=== PATIENT | female | born 1945 | race Hispanic/Latino ===

== ENCOUNTER 2016-07-22 11:26 | Inpatient (IN) | payer MEDICARE, OTHER ==
[2016-07-22 11:42] VITALS: BMI 25.0
[2016-07-22] MEDS ORDERED: Sodium Chloride 0.9% 1,000 ML IV STA (12:06)
[2016-07-22 12:34] LABS: ADD MANUAL DIFF? NO
[2016-07-22 12:46] LABS: BASO # 0.03 K/mm3 (0.0-2.0); BASO % 0.4 % (0.0-3.0); EOS # 0.1 (0.0-0.7); GRAN # 4.23 (1.4-6.5); GRAN % 63.5 % (50.0-68.0); LYMPH # 1.9 (1.2-3.4); LYMPH % 28.8 % (22.0-35.0); MEAN CELL VOLUME 87.1 fL (80.0-105.0); MEAN CORPUSCULAR HEMOGLOBIN 28.6 pg (25.0-35.0); MEAN CORPUSCULAR HGB CONC 32.9 g/dl (31.0-37.0); MEAN PLATELET VOLUME 10.4 fl (7.0-11.0); MONO # 0.4 (0.1-0.6); MONO % 6.3 % (1.0-6.0); PLATELET COUNT 326 10^3/uL (120.0-450.0); RED CELL DISTRIBUTION WIDTH 15.1 % (11.5-14.5); WHITE BLOOD COUNT 6.7 10^3/ul (4.5-11.0)
[2016-07-22 12:53] LABS: INR 1.1 (0.93-1.08); PARTIAL THROMBOPLASTIN TIME 28.7 Seconds (23.7-30.8)
[2016-07-22 12:54] LABS: BLOOD UREA NITROGEN 25 mg/dL (7-21); GFR AFRICAN-AMERICAN 45; GLUCOSE,RANDOM 157 mg/dL (70-110)
[2016-07-22 12:55] LABS: ALB/GLOB RATIO 1.2 (1.1-1.8); ALKALINE PHOSPHATASE 81 U/L (38-133); ALT/SGPT 14 U/L (7-56); AST/SGOT 21 U/L (15-39); BILIRUBIN,TOTAL 0.8 mg/dL (0.2-1.3); CALCIUM 9.8 mg/dL (8.4-10.5); CARBON DIOXIDE 24 mmol/L (21-33); CHLORIDE 100 mmol/L (98-107); LIPASE 53 U/L (23-300); SODIUM 141 mmol/L (132-148); TOTAL PROTEIN 7.8 g/dL (5.8-8.3)
[2016-07-22 13:05] LABS: TROPONIN I 0.02 ng/mL
--- NOTE | 2016-07-22 13:26 | CT ---
PROCEDURE: CT Abdomen and Pelvis without intravenous contrast HISTORY: nv COMPARISON: None. TECHNIQUE: Without contrast.. Contrast Dose: 0 Radiation dose: Total exam DLP = 280.08 mGy-cm. FINDINGS: LOWER THORAX: Unremarkable. LIVER: Unremarkable. No gross lesion or ductal dilatation. GALLBLADDER AND BILE DUCTS: Status post cholecystectomy. Minimal dilatation of the common bile duct to 8 mm diameter consistent with patient age and prior cholecystectomy. PANCREAS: Atrophy of pancreatic body and tail. Coarse calcifications in proximal pancreatic body suggestive of chronic pancreatitis. SPLEEN: Unremarkable. ADRENALS: Unremarkable. No mass. KIDNEYS AND URETERS: Multiple punctate nonobstructing renal calculi bilaterally. None larger than 2 mm. No renal mass. No hydronephrosis. No ureteral calculus or hydroureter. VASCULATURE: Unremarkable. No aortic aneurysm. BOWEL: Mild retained feces. No bowel obstruction. No abnormal bowel loops. APPENDIX: Normal appendix PERITONEUM: Unremarkable. No free fluid. No free air. LYMPH NODES: Unremarkable. No enlarged lymph nodes. BLADDER: Poorly distended. No gross abnormality. REPRODUCTIVE: Normal uterus. BONES: Bilateral osteoarthritis of the hip. No fractures. OTHER FINDINGS: None. IMPRESSION: No acute abnormality. Bilateral punctate nonobstructing renal calculi. Status post cholecystectomy. Probable chronic pancreatitis with atrophy of pancreatic body and tail.
--- NOTE | 2016-07-22 13:30 | RAD ---
PROCEDURE: CHEST RADIOGRAPH, 1 VIEW HISTORY: cough COMPARISON: 11/19/2015. FINDINGS: LUNGS: Clear. PLEURA: No pneumothorax or pleural fluid seen. CARDIOVASCULAR: Normal. OSSEOUS STRUCTURES: Severe degenerative changes both shoulders right greater than left. This includes acromioclavicular joints and glenohumeral relationships. VISUALIZED UPPER ABDOMEN: Normal. OTHER FINDINGS: None. IMPRESSION: No active disease. No acute/significant interval changes.
--- NOTE | 2016-07-22 14:18 | ED PDOC ---
Arrival/HPI - General Chief Complaint: GI Problem Time Seen by Provider: 07/22/16 11:50 Historian: Patient - History of Present Illness Narrative History of Present Illness (Text): 07/22/16 14:29 70 year old female presents to the emergency department with 2 days duration of nausea, mild headache, and generalized weakness. Patient states she feels like she has no appetite and feels dehydrated. Denies vomiting. No other complaints at this time. Time/Duration: < week Symptom Onset: Gradual Symptom Course: Unchanged Modifying Factors (Text): None Associated Symptoms (Text): None Past Medical History - Provider Review Nursing Documentation Reviewed: Yes - Cardiac Hx Cardiac Disorders: Yes Hx Hypertension: Yes - Pulmonary Hx Respiratory Disorders: No - Neurological Hx Neurological Disorder: Yes HX Cerebrovascular Accident: Yes (left sided paralysis) - HEENT Hx HEENT Disorder: No - Renal Hx Renal Disorder: No - Endocrine/Metabolic Hx Endocrine Disorders: Yes Hx Diabetes Mellitus Type 2: Yes - Hematological/Oncological Hx Blood Disorders: No - Integumentary Hx Dermatological Disorder: No - Musculoskeletal/Rheumatological Hx Musculoskeletal Disorders: No - Gastrointestinal Hx Gastrointestinal Disorders: No - Genitourinary/Gynecological Hx Genitourinary Disorders: No - Psychiatric Hx Psychophysiologic Disorder: No Hx Anxiety: No Hx Substance Use: No - Surgical History Hx Cholecystectomy: Yes Other/Comment: carotid Family/Social History - Physician Review Nursing Documentation Reviewed: Yes Family/Social History: Unknown Family HX Smoking Status: Former Smoker Hx Alcohol Use: No Hx Substance Use: No Allergies/Home Meds Allergies/Adverse Reactions: Allergies No Known Allergies Allergy (Verified 07/22/16 11:41) Home Medications: Home Meds Medication Instructions Recorded Confirmed Metformin HCl [Metformin Xr] 1,000 mg PO BID 11/19/15 07/22/16 Aspirin [Aspirin Chewable] 81 mg PO DAILY 07/22/16 07/22/16 Atorvastatin [Lipitor] 40 mg PO DAILY 07/22/16 07/22/16 FLUoxetine [Prozac] 20 mg PO DAILY 07/22/16 07/22/16 Insulin Glargine, Recombina 10 units SC HS 07/22/16 07/22/16 [Lantus] Iron Pill 1 tab PO DAILY 07/22/16 07/22/16 Lisinopril [Zestril] 20 mg PO DAILY 07/22/16 07/22/16 Metoprolol Tartrate [Lopressor] 25 mg PO HS 07/22/16 07/22/16 traMADol [Ultram] 50 mg PO BID PRN 07/22/16 07/22/16 Review of Systems - Physician Review All systems were reviewed & negative as marked: Yes Physical Exam - Physical Exam Narrative Physical Exam (Text): - Review of Systems Constitutional: Generalized weakness. absent: Fatigue, Weight Change, Fevers Eyes: Normal ENT: Normal Respiratory: Normal absent: SOB, Cough, Sputum Cardiovascular: Normal absent: Chest pain, Palpitations, Syncope Gastrointestinal: Nausea, Decreased appetite. absent: Abdominal pain, Diarrhea , Vomiting Genitourinary: Normal. absent: Dysuria, Frequency, Hematuria Musculoskeletal: Normal. absent: Arthralgias, Back Pain, Neck Pain Skin: Normal Neurological: Mild headache absent: Focal Weakness Endocrine: Normal Hemo/Lymphatic: Normal Psychiatric: Normal - Physical exam Patient appears age appropriate, speaking full sentences without difficulty - Systems Exam Head: Present: Atraumatic, Normocephalic Pupils: Present: PERRL Extraocular Muscles: Present: EOMI Conjunctiva: Present: Normal Mouth: Present: Moist Mucous Membranes Neck: Present: Normal Range of Motion. No: MIDLINE TENDERNESS, Paraspinal Tenderness Respiratory/Chest: Present: Clear to Auscultation, Good Air Exchange. No: Respiratory Distress, Accessory Muscle Use, Tachypneic Cardiovascular: Present: Regular Rate and Rhythm, Normal S1, S2, Peripheral Pulses Present. No: Murmurs Abdomen: Present: Normal Bowel Sounds, No: Tenderness, Peritoneal Signs, Rebound, Guarding, Distention Back: Present: Normal Inspection. No: Midline Tenderness, Paraspinal Tenderness Upper Extremity: Present: Normal Inspection. No: Cyanosis, Edema Lower Extremity: Present: Normal Inspection. No: Edema Neurological: Present: GCS=15, Speech Normal, cranial nerves II through XII fully intact with no cerebellar abnormality, neuro-sensory fully intact. No focal neurological deficits. Skin: Present: Warm, Dry, Normal Color. No: Rashes Lymphatic: Present: OX3, NI, NC Psychiatric: Present: Alert, Oriented x 3, Normal Insight, Normal Concentration Vital Signs Temp Pulse Resp BP Pulse Ox 07/22/16 15:01 86 16 148/90 99 07/22/16 11:45 98.3 F 78 16 155/86 H 99 Medical Decision Making ED Course and Treatment: Impression: 70 year old female presents to the emergency department with 2 days duration of nausea, mild headache, and generalized weakness. On physical exam, patient has no acute findings. Plan: -- CT Abdomen/Pelvis, EKG -- Aspirin, Zofran, IV fluids -- Labs -- Reassess and disposition Prior Visits: Notes and results from previous visits were reviewed. Patient last seen in the ED on 11/19/15 for stroke symptoms and transferred to [facility] [place] for CVA and abnormal EKG. Progress Notes: Patient states she has never seen a shot core drill operator. EKG shows NSR at [address]-segment elevations, right bundle branch block , ST-segment depressions in V2 and V3 which are different from previous EKG. There is an ST elevation with q-waves in leads III and AVF which are not new. Interpreted by me. Patient denies any chest pain, denies back pain, denies joint discomfort. PROCEDURE: CT Abdomen and Pelvis without intravenous contrast [employer] Sales Representative : Shane Meza MD IMPRESSION: No acute abnormality. Bilateral punctate nonobstructing renal calculi. Status post cholecystectomy. Probable chronic pancreatitis with atrophy of pancreatic body and tail. Patient received fluids, Zofran, and Aspirin. Patient reports symptomatic relief. Case discussed with Dr. Adams who [facility] Asked to consult Dr. Nagel. Patient aware of and agrees with plan. - Lab Interpretations Lab Results: 07/22/16 12:30 07/22/16 12:30 Lab Results 07/22/16 12:30: WBC 6.7 D, RBC 4.82, Hgb 13.8, Hct 42.0, MCV 87.1, MCH 28.6, MCHC 32.9, RDW 15.1 H, Plt Count 326, MPV 10.4, Gran % 63.5, Lymph % (Auto) 28.8 , Den[place] % (Auto) 6.3 H, Eos % (Auto) 1.0 L, Baso % (Auto) 0.4, Gran # 4.23, Lymph # 1.9, Denali # 0.4, Eos # 0.1, Baso # 0.03, PT 11.9 H, INR 1.10 H, APTT 28.7, Sodium 141, Potassium 4.0, Chloride 100, Carbon Dioxide 24, Anion Gap 21 H , BUN 25 H, Creatinine 1.4, Est GFR ( Amer) 45, Est GFR (Non-Af Amer) 37 , Random Glucose 157 H, Calcium 9.8, Total Bilirubin 0.8, AST 21, ALT 14, Alkaline Phosphatase 81, Lactate Dehydrogenase 412, Total Creatine Kinase < 20 L , Troponin I 0.02 D, Total Protein 7.8, Albumin 4.3, Globulin 3.5, Albumin/ Globulin Ratio 1.2, Triglycerides 236 H, Cholesterol 182, LDL Cholesterol Direct 73, HDL Cholesterol 59, Lipase 53 - RAD Interpretation Radiology Orders: 07/22/16 12:21 ABD & PELVIS W/O PO OR IV CONT [CT] Stat CHEST ONE VIEW [RAD] Stat - Medication Orders Current Medication Orders: Aspirin (Aspirin Chewable) 81 mg PO DAILY CLAUDY Atorvastatin Calcium (Lipitor) 40 mg PO DAILY CLAUDY Fluoxetine HCl (Prozac) 20 mg PO DAILY CLAUDY Sodium Chloride (Sodium Chloride 0.45%) 1,000 mls @ 50 mls/hr IV .Q20H CLAUDY Insulin Human Lispro (Humalog Med) 0 units SC ACHS CLAUDY PRN Reason: Protocol Lisinopril (Zestril) 20 mg PO DAILY CLAUDY Metoprolol Tartrate (Lopressor) 25 mg PO HS CLAUDY Ondansetron HCl (Zofran Inj) 4 mg IVP Q6H PRN PRN Reason: Nausea/Vomiting Pantoprazole Sodium (Protonix Inj) 40 mg IVP DAILY CLAUDY Tramadol HCl (Ultram) 50 mg PO BID PRN PRN Reason: Pain, moderate (4-7) Discontinued Medications Aspirin (Aspirin Chewable) 324 mg PO STAT STA Stop: 07/22/16 12:06 Last Admin: 07/22/16 12:38 Dose: 324 MG Sodium Chloride (Sodium Chloride 0.9%) 1,000 mls @ 1,000 mls/hr IV .Q1H STA Stop: 07/22/16 13:05 Last Admin: 07/22/16 12:07 Dose: 1,000 MLS/HR eMAR Start Stop Document 07/22/16 12:07 NORRIS (Rec: 07/22/16 12:39 FELICIA [id number]) Intravenous Solution Start Date 07/22/16 Start Time 12:07 Ondansetron HCl (Zofran Inj) 4 mg IVP STAT STA Stop: 07/22/16 12:07 Last Admin: 07/22/16 12:39 Dose: 4 MG IVP Administration Document 07/22/16 12:39 NORRIS (Rec: 07/22/16 12:39 [facility] [id number]) Charges for Administration # of IVP Administrations 1 - Scribe Statement The provider has reviewed the documentation as recorded by the Apoorva Padilla Provider Scribe Attestation: All medical record entries made by the Chiquiibe were at my direction and personally dictated by me. I have reviewed the chart and agree that the record accurately reflects my personal performance of the history, physical exam, medical decision making, and the department course for this patient. I have also personally directed, reviewed, and agree with the discharge instructions and disposition. Disposition/Present on Arrival - Present on Arrival Any Indicators Present on Arrival: No History of DVT/PE: No History of Uncontrolled Diabetes: No Urinary Catheter: No History of Decub. Ulcer: No History Surgical Site Infection Following: None - Disposition Have Diagnosis and Disposition been Completed?: Yes Diagnosis: Nausea Disposition: HOSPITALIZED Disposition Time: 14:16 Patient Plan: Observation Condition: FAIR
--- NOTE | 2016-07-22 14:21 | ED PDOC ---
Arrival/HPI - General Chief Complaint: GI Problem Time Seen by Provider: 07/22/16 11:50 Historian: Patient Past Medical History - Cardiac Hx Cardiac Disorders: Yes Hx Hypertension: Yes - Pulmonary Hx Respiratory Disorders: No - Neurological Hx Neurological Disorder: Yes HX Cerebrovascular Accident: Yes (left sided paralysis) - HEENT Hx HEENT Disorder: No - Renal Hx Renal Disorder: No - Endocrine/Metabolic Hx Endocrine Disorders: Yes Hx Diabetes Mellitus Type 2: Yes - Hematological/Oncological Hx Blood Disorders: No - Integumentary Hx Dermatological Disorder: No - Musculoskeletal/Rheumatological Hx Musculoskeletal Disorders: No - Gastrointestinal Hx Gastrointestinal Disorders: No - Genitourinary/Gynecological Hx Genitourinary Disorders: No - Psychiatric Hx Psychophysiologic Disorder: No Hx Anxiety: No Hx Substance Use: No - Surgical History Hx Cholecystectomy: Yes Other/Comment: carotid Family/Social History Smoking Status: Former Smoker Hx Alcohol Use: No Hx Substance Use: No Allergies/Home Meds Allergies/Adverse Reactions: Allergies No Known Allergies Allergy (Verified 07/22/16 11:41) Home Medications: Home Meds Medication Instructions Recorded Confirmed Metformin HCl [Metformin Xr] 1,000 mg PO BID 11/19/15 07/22/16 Aspirin [Aspirin Chewable] 81 mg PO DAILY 07/22/16 07/22/16 Atorvastatin [Lipitor] 40 mg PO DAILY 07/22/16 07/22/16 FLUoxetine [Prozac] 20 mg PO DAILY 07/22/16 07/22/16 Insulin Glargine, Recombina 10 units SC HS 07/22/16 07/22/16 [Lantus] Iron Pill 1 tab PO DAILY 07/22/16 07/22/16 Lisinopril [Zestril] 20 mg PO DAILY 07/22/16 07/22/16 Metoprolol Tartrate [Lopressor] 25 mg PO HS 07/22/16 07/22/16 traMADol [Ultram] 50 mg PO BID PRN 07/22/16 07/22/16 Medical Decision Making - Lab Interpretations Lab Results: 07/22/16 12:30 07/22/16 12:30 Lab Results 07/22/16 12:30: WBC 6.7 D, RBC 4.82, Hgb 13.8, Hct 42.0, MCV 87.1, MCH 28.6, MCHC 32.9, RDW 15.1 H, Plt Count 326, MPV 10.4, Gran % 63.5, Lymph % (Auto) 28.8 , Haakon % (Auto) 6.3 H, Eos % (Auto) 1.0 L, Baso % (Auto) 0.4, Gran # 4.23, Lymph # 1.9, Haakon # 0.4, Eos # 0.1, Baso # 0.03, PT 11.9 H, INR 1.10 H, APTT 28.7, Sodium 141, Potassium 4.0, Chloride 100, Carbon Dioxide 24, Anion Gap 21 H , BUN 25 H, Creatinine 1.4, Est GFR ( Amer) 45, Est GFR (Non-Af Amer) 37 , Random Glucose 157 H, Calcium 9.8, Total Bilirubin 0.8, AST 21, ALT 14, Alkaline Phosphatase 81, Lactate Dehydrogenase 412, Total Creatine Kinase < 20 L , Troponin I 0.02 D, Total Protein 7.8, Albumin 4.3, Globulin 3.5, Albumin/ Globulin Ratio 1.2, Lipase 53 - RAD Interpretation Radiology Orders: 07/22/16 12:21 ABD & PELVIS W/O PO OR IV CONT [CT] Stat CHEST ONE VIEW [RAD] Stat - Medication Orders Current Medication Orders: Discontinued Medications Aspirin (Aspirin Chewable) 324 mg PO STAT STA Stop: 07/22/16 12:06 Last Admin: 07/22/16 12:38 Dose: 324 MG Sodium Chloride (Sodium Chloride 0.9%) 1,000 mls @ 1,000 mls/hr IV .Q1H STA Stop: 07/22/16 13:05 Last Admin: 07/22/16 12:07 Dose: 1,000 MLS/HR eMAR Start Stop Document 07/22/16 12:07 [facility] (Rec: 07/22/16 12:39 [id number]) Intravenous Solution Start Date 07/22/16 Start Time 12:07 Ondansetron HCl (Zofran Inj) 4 mg IVP STAT STA Stop: 07/22/16 12:07 Last Admin: 07/22/16 12:39 Dose: 4 MG IVP Administration Document 07/22/16 12:39 [facility] (Rec: 07/22/16 12:39 [id number]) Charges for Administration # of IVP Administrations 1 Disposition/Present on Arrival - Present on Arrival History of DVT/PE: No History of Uncontrolled Diabetes: No Urinary Catheter: No History of Decub. Ulcer: No History Surgical Site Infection Following: None
[2016-07-22 16:44] LABS: CHOLESTEROL 182 mg/dL (130-200)
--- NOTE | 2016-07-22 18:24 | CARD ---
APPROVED REPORT EKG Measurement Heart [id number] <Conclusion> Normal sinus rhythm Right bundle branch block Lateral infarct, age undetermined Inferior infarct, age undetermined Abnormal ECG
[2016-07-22] MEDS: Insulin Lispro (humaLOG) MEDIUM Coverage SC SCH ×2 (18:43→22:37)
[2016-07-22] MEDS ORDERED: Influenza Vaccine 45 MCG/0.5 ml IM ONE (19:41)
[2016-07-22] MEDS ORDERED: Pneumococcal 23-Valent Vaccine IM ONE (19:41)
--- NOTE | 2016-07-22 20:29 | HP ---
HISTORY OF PRESENT ILLNESS: The patient is a 70-year-old female, known to me from office practice an d has not been feeling well for the last 2-3 days, complaining of poor appetite, generalized weakness , nausea, headache and generalized weakness. The patient had a CVA in 10/2015. PAST MEDICAL HISTORY: Is significant for: 1. Hypertension. 2. Non-insulin dependent diabetes. 3. Recent cerebrovascular accident with left hemiparesis. 4. Hyperlipidemia. 5. History of depression. ALLERGIES: She is not allergic to any medications. MEDICATIONS AT HOME: She is on: 1. Ferrous sulfate. 2. Prozac 20 mg daily. 3. Tramadol 50 mg twice a day as needed. 4. Lantus 10 units at bedtime. 5. Metoprolol 25 at bedtime. 6. Lipitor 40 mg daily. 7. Lisinopril 20 mg daily. 8. Aspirin 81 daily. 9. Metformin 1000 twice a day. SOCIAL HISTORY: She used to be a heavy smoker in the past drug use. REVIEW OF SYSTEMS: Is significant for left-sided weakness, but able to swallow. PHYSICAL EXAMINATION: GENERAL: She is awake and alert. VITAL SIGNS: She is afebrile, pulse 70, respirations 16, blood pressure 148/90. LUNGS: Bilateral good airflow, no rhonchi or crackle. HEART: S1, S2 audible. No murmur. ABDOMEN: Soft, nontender, no rebound, no guarding. NEUROLOGIC: She is awake and alert, some left-sided weakness. EXTREMITIES: Bilateral leg no edema. LABORATORY DATA: WBC is 6.7, hemoglobin 13.8, hematocrit 42.0, platelets 326. Chemistry: Sodium 14 1, potassium 4.0, chloride 100, CO2 of 21, BUN 25, creatinine 1.4, blood sugar 157. Cholesterol: Tr iglyceride is 236. Troponin is 0.02. Urinalysis is unremarkable. X-ray chest: No active disease. CT scan of the abdomen and pelvis is done that has no acute abnormality, bilateral punctate nonobstr ucting renal calculi, status post cholecystectomy. ASSESSMENT: 1. Generalized weakness with nausea and vomiting. 2. Dehydration. 3. Cerebrovascular accident with left hemiparesis. 4. Hypertension. 5. Hyperlipidemia. 6. Non-insulin dependent diabetes. PLAN: The patient will be placed in observation. Will start her on gentle hydration. Will restart her usual medications including aspirin, atorvastatin and metoprolol. Will give her Protonix. Will follow up cardiac enzymes. The patient has some nonspecific T-wave changes. Dr. Shane Nagel to evalu ate the patient. Will follow up her CBC and electrolytes in the a.m. Maritza Adams MD cc: [phone] TT: 07/22/2016 20:28:30 dn
[2016-07-23] MEDS ORDERED: Pantoprazole 40 mg EC Tab PO SCH (06:30)
[2016-07-23 06:34] LABS: ADD MANUAL DIFF? NO
[2016-07-23 06:47] LABS: BASO # 0.02 K/mm3 (0.0-2.0); BASO % 0.3 % (0.0-3.0); EOS # 0.1 (0.0-0.7); EOS % 1.4 % (1.5-5.0); GRAN # 3.63 (1.4-6.5); GRAN % 55.3 % (50.0-68.0); HEMATOCRIT 37.3 % (36.0-48.0); LYMPH # 2.3 (1.2-3.4); LYMPH % 34.8 % (22.0-35.0); MEAN CELL VOLUME 86.5 fL (80.0-105.0); MEAN CORPUSCULAR HEMOGLOBIN 28.5 pg (25.0-35.0); MEAN PLATELET VOLUME 10.1 fl (7.0-11.0); MONO # 0.5 (0.1-0.6); MONO % 8.2 % (1.0-6.0); PLATELET COUNT 272 10^3/uL (120.0-450.0); RED CELL DISTRIBUTION WIDTH 15.2 % (11.5-14.5); WHITE BLOOD COUNT 6.6 10^3/ul (4.5-11.0)
[2016-07-23 06:53] LABS: ALB/GLOB RATIO 1.2 (1.1-1.8); BILIRUBIN,TOTAL 0.6 mg/dL (0.2-1.3); CALCIUM 8.9 mg/dL (8.4-10.5); MAGNESIUM 1.1 mg/dL (1.7-2.2); PHOSPHOROUS 3.5 mg/dL (2.5-4.5); POTASSIUM 3.9 mmol/L (3.6-5.0); TOTAL PROTEIN 6.8 g/dL (5.8-8.3)
[2016-07-23 07:08] LABS: FREE T4 1.5 ng/dL (0.78-2.19)
[2016-07-23 07:22] LABS: THYROID STIMULATING HORMONE 0.68 mIU/mL (0.46-4.68)
[2016-07-23] MEDS: Insulin Lispro (humaLOG) MEDIUM Coverage SC SCH ×4 (08:02→22:02)
--- NOTE | 2016-07-23 10:54 | CON ---
DATE: 07/23/2016 HISTORY OF PRESENT ILLNESS: The patient is a 70-year-old woman who presents with 1 week of general m alaise with difficulty with diffuse weakness. She denies chest pain. PAST MEDICAL HISTORY: Notable for a recent CVA treated in [facility]. She had 2 episodes of chest oswaldo n symptoms, which was treated medically. Includes a history of hypertension, hypercholesterolemia, a nd diabetes mellitus. She had an EKG in the past, which shows an old inferior wall myocardial infarction. SOCIAL HISTORY: She denies smoking. REVIEW OF SYSTEMS: A 14-point was reviewed. No angina, plus/minus shortness of breath. Positive di ffuse weakness. Negative edema in the lower extremities. PHYSICAL EXAMINATION: VITAL SIGNS: Blood pressure is 131/79, the heart rate is in the 70s, sinus rhythm. The patient is a febrile. NECK: Negative JVD. LUNGS: Without rales. HEART: Reveals S1, S2. EXTREMITIES: Without edema. The hemoglobin is 12.3. INR is 1.1. Chemistries: BUN and creatinine are 30 and 1.6. Troponins are negative x 2. IMPRESSION: 1. Malaise and weakness. 2. History of cerebrovascular accident. 3. Two episodes of angina-like symptoms while in the subacute rehabilitation. 4. 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 5. Coronary artery disease. 6. History of diabetes mellitus. 7. Hypertension and hypercholesterolemia. PLAN: We will obtain an echocardiogram to evaluate her left ventricular function. Depending on her left ventricular function, we may need to proceed with a cardiac catheterization. A stress test woul d not be helpful at this time given her high pretest probability for CAD. We will start IV fluids. Shane Nagel MD cc: [phone] TT: 07/23/2016 10:53:29 Confirmation # [id number] Dictation # [id number]
--- NOTE | 2016-07-23 14:04 | CARD ---
APPROVED REPORT EKG Measurement Heart [id number] [id number] <Conclusion> Normal sinus rhythm Right bundle branch block Inferior infarct, age undetermined Abnormal ECG
--- NOTE | 2016-07-23 17:06 | CARD ---
APPROVED REPORT EXAM: Two-dimensional and M-mode echocardiogram with Doppler and color Doppler. INDICATION OLD [place] 2D DIMENSIONS IVSd1.1 (0.7-1.1cm)LVDd4.0 (3.9-5.9cm) PWd1.2 (0.7-1.1cm)LVEF (%)45.0 (>50%) M-Mode DIMENSIONS Aortic Root2.90 (2.2-3.7cm)Aortic Cusp Exc.1.40 (1.5-2.0cm) Aortic Valve AoV Peak Gmbbmblw613.0cm/sAoV VTI24.7cmAO Peak GR.8mmHg LVOT Peak Bitvkhog54.0cm/sLVOT VTI16.20cmAO Mean GR.4mmHg Mitral Valve MV E Cndjoqej23.1cm/sMV A Abpsjwhz938.0cm/sE/A ratio0.5 TDI Lateral E' Peak V5.85cm/sMedial E' Peak V3.31cm/sE/Lateral E'9.1 E/Medial E'16.0 Pulmonary Valve PV Peak Wagrtdqw733.0cm/sPV Peak Grad.5mmHg Tricuspid Valve TR Peak Nwigezba889hh/sRAP RVUURNGY39ioFjLW Peak Gr.12mmHg MNRR21tjNw LEFT VENTRICLE The left ventricle is normal size. There is normal left ventricular wall thickness. The systolic function is mildly impaired. Transmitral Doppler flow pattern is Grade I-abnormal relaxation pattern. RIGHT VENTRICLE The right ventricle is normal size. There is normal right ventricular wall thickness. The right ventricular systolic function is normal. ATRIA The left atrium size is normal. The right atrium size is normal. AORTIC VALVE The aortic valve is not well visualized. There is trace valvular aortic stenosis. MITRAL VALVE There is no mitral valve regurgitation noted. TRICUSPID VALVE There is no pulmonary hypertension. GREAT VESSELS The aortic root is normal in size. PERICARDIAL EFFUSION There is a trace circumferential pericardial effusion. <Conclusion> The left ventricle is normal size. There is normal left ventricular wall thickness. The systolic function is mildly impaired. Transmitral Doppler flow pattern is Grade I-abnormal relaxation pattern.
[2016-07-23] MEDS: Sodium Chloride 0.45% 1,000 ML IV SCH (18:20)
--- NOTE | 2016-07-23 21:33 | PN ---
DATE: 07/23/2016 The patient is a 70 years old, seen and examined, and detailed history obtained from sister since the patient is not a good historian. She recently a stroke in 10/2015. At that point she was given TPA , was sent to [facility], followed by rehab in [facility], The patient's sister stated she was d oing well when she came home. She started to gain some strength, but slowly. She has not been eatin g well. She stopped taking her omeprazole. Since then she lost her appetite, has not been eating an d drinking, and getting more and more weak, and because of increased lethargy and poor oral intake, ami baltazar brought her to Emergency Room for further evaluation. On examination today, she is awake and alert, communicative. VITAL SIGNS: She is afebrile, pulse 70, respirations 20, blood pressure 133/83. LUNGS: Bilateral fair airflow. No rhonchi or crackle. HEART: S1, S2 audible. No murmur. ABDOMEN: Soft, nontender, no rebound, no guarding. NEUROLOGICALLY: She is awake and alert. She has left hemiparesis bilateral legs. No edema. LABORATORY EXAMINATION: WBC 6.6, hemoglobin 12.3, hematocrit 37.3, platelet 272. PT 11.9, INR 1.10. Chemistry: Sodium 139, potassium 3.9, chloride 102, CO2 of 26, BUN 30, creatinine 1.6. Blood suga r of 86, magnesium 1.1, triglycerides 185. ASSESSMENT AND PLAN: 1. Poor oral intake. 2. Status post cerebrovascular accident with left hemiparesis. 3. Coronary artery disease with abnormal EKG. LABORATORY EXAMINATION: Shows sodium 139, potassium 3.9, chloride 102, CO2 of 26, BUN 30, creatinine 1.6. Blood sugar of 88, magnesium 1.1. She had an echocardiogram done that shows the left ventricle is normal in size, normal left ventricul ar wall thickness, and systolic function is mildly impaired. ASSESSMENT AND PLAN: 1. Poor oral intake. 2. Failure to thrive. 3. Status post cerebrovascular accident. 4. Depression. 5. Rule out peptic ulcer disease. 6. Abnormal EKG, rule out underlying coronary ischemia. PLAN: Will continue patient on IV fluid, and PPI has been started. She is on aspirin 81 daily. Mon itor her blood sugar. She is on Lipitor and metoprolol; will continue that. Will supplement her mag nesium. The patient's sister says that Prozac makes her sick, so I will switched to Paxil; that migh t help her to improve her appetite. Continue her on Plavix. Will reevaluate this patient in a.m. Maritza Adams MD cc: [phone] TT: 07/23/2016 21:32:47 Confirmation # [id number] Dictation # [id number] jn
[2016-07-24] MEDS: Insulin Lispro (humaLOG) MEDIUM Coverage SC SCH ×4 (07:56→22:24)
[2016-07-24 10:42] LABS: ALB/GLOB RATIO 1.1 (1.1-1.8); BILIRUBIN,TOTAL 0.5 mg/dL (0.2-1.3); CALCIUM 7.3 mg/dL (8.4-10.5); POTASSIUM 3.2 mmol/L (3.6-5.0); TOTAL PROTEIN 5.5 g/dL (5.8-8.3)
[2016-07-24] MEDS: Potassium Chloride 10 mEq 100 ML IVPB SCH ×2 (12:07→15:44)
--- NOTE | 2016-07-24 12:10 | PN ---
DATE: 07/24/2016 SUBJECTIVE: The patient is 70 years old, seen and examined, lying in bed. She states she is feeling better. According to her age, she did eat her breakfast pretty good, at least 75% of her tray. Den ies any chest pain. No shortness of breath. Complained of generalized weakness. PHYSICAL EXAMINATION: VITAL SIGNS: She is afebrile, pulse 69, respirations 20, blood pressure 130/93. LUNGS: Bilateral fair airflow. No rhonchi or crackle. HEART: S1, S2 audible. No murmur. ABDOMEN: Soft, nontender. No rebound, no guarding. NEUROLOGIC: She is awake and alert. she has left hemiparesis from previous stroke. EXTREMITIES: Bilateral legs, no edema. LABORATORY: WBC 6.6, hemoglobin 12.3, hematocrit 37.3, platelets of 272. Chemistry: Sodium 126, po tassium 3.2, chloride 97, CO2 of 21, BUN 21, creatinine 1.1, blood sugar of 151. ASSESSMENT: 1. Generalized weakness. 2. History of recent cerebrovascular accident. 3. Renal insufficiency, improving. 4. Deconditioning and difficulty walking. PLAN: We will supplement her potassium and request for TCU evaluation. If she is accepted, can be t ransferred to TCU. We will continue her other medications including statin, metoprolol, Plavix, and Protonix. I will change it to p.o. since she started to eat and tolerate. We will reevaluate the pa ynes in a.m. Maritza Adams MD cc: [id number] TT: 07/24/2016 12:09:16 Confirmation # [id number] Dictation # [id number] radha
--- NOTE | 2016-07-24 12:58 | PN ---
DATE: 07/24/2016 Room 260, bed 2. This progress note is being dictated on behalf of Dr. Nagel, for whom I am covering. HISTORY OF PRESENT ILLNESS: The patient is a 70-year-old, admitted with 1-week of generalized malais e and difficulty with walking, feeling very weak. Denies any chest pain, shortness of breath. The p atient known to have a recent cerebrovascular accident. The patient also has history of hypertension , hypercholesterolemia, and diabetes mellitus. The patient lying flat in bed without any cardiac sym ptoms. PHYSICAL EXAMINATION: VITAL SIGNS: Blood pressure 130/93, respirations 20, pulse 73, temperature 98.2. HEAD: Normocephalic. EYES: Pupils normal. Conjunctivae normal. NOSE AND THROAT: Normal. NECK: JVP low. Carotid equal. THORAX: AP diameter normal. LUNGS: Clear. CARDIOVASCULAR: S1, S2. ABDOMEN: Soft, nontender, no organomegaly. EXTREMITIES: No clubbing, no cyanosis. LABORATORY DATA: WBC 6.6, hemoglobin 12.3, hematocrit 37.3, platelets 272. Sodium 126, potassium 3. 2, BUN 21, creatinine 1.1. AST, ALT normal. Total protein 5.5, albumin 2.9. The TSH is 0.68, free T4 1.50 DIAGNOSES: Malaise and weakness, history of CVA. The patient, in rehabilitation, had 2 episodes of chest pain, old inferior wall AL on ECG, diabetes mellitus, hypertension, hypercholesterolemia, low s odium, low potassium. PLAN: We will repeat sodium and potassium and the patient is getting 0.4% 1650 mL per hour, aspirin 81 mg daily, atorvastatin 40 mg p.o. daily, metoprolol 25 mg p.o. at bedtime, Plavix 75 mg p.o. daily , potassium chloride riders have been already ordered by Dr. Adams, lisinopril 20 mg daily, Protoni x 40 p.o. daily. Yesterday, sodium was 139, today is 126. Yesterday, potassium was 3.9, today is 3. 2. We will repeat both now and we will follow. Jon Jackson MD cc: [id number] TT: 07/24/2016 12:58:03 Confirmation # [id number] Dictation # [id number] ln
[2016-07-24] MEDS: Sodium Chloride 0.45% 1,000 ML IV SCH (13:12)
[2016-07-24 14:41] LABS: POTASSIUM 3.5 mmol/L (3.6-5.0)
[2016-07-24] MEDS ORDERED: Potassium Chloride 20 mEq/15 ml LIQ UD PO STA (15:43)
[2016-07-25] MEDS: Pantoprazole 40 mg EC Tab PO SCH (06:36)
[2016-07-25] MEDS: Insulin Lispro (humaLOG) MEDIUM Coverage SC SCH ×4 (08:11→22:18)
[2016-07-25] MEDS ORDERED: Potassium Chloride 20 mEq ER Tab PO ONE (11:10)
--- NOTE | 2016-07-25 12:23 | PN ---
DATE: 07/25/2016 The patient is in room 260, bed 2. This progress note is being dictated on behalf of Dr. Nagel, whom I am covering. HISTORY OF PRESENT ILLNESS: The patient is a 70-year-old admitted with 1 week of generalized malaise and difficulty walking, feeling very weak. The patient apparently had some chest pain at rehab wher e she was transferred after her CVA. The patient denies chest pain at present. The patient is known to have hypertension, hypercholesterolemia, and diabetes. PHYSICAL EXAMINATION: VITAL SIGNS: Blood pressure 167/97, respirations 19, pulse 73, temperature 97.8. HEAD: Normocephalic. EYES: Pupils are normal. Conjunctivae are normal. NOSE AND THROAT: Normal. NECK: JVP low. Carotids equal. THORAX: AP diameter normal. LUNGS: Clear. CARDIOVASCULAR: S1, S2. ABDOMEN: Soft, nontender. No organomegaly. Bowel sounds normal. EXTREMITIES: No clubbing, no cyanosis. LABORATORY DATA: WBC 6.6, hemoglobin 12.3, hematocrit 37.3, platelets 272. Sodium 135, potassium 3. 5. BUN 21, creatinine 1.1. TSH 0.68. DIAGNOSES: Malaise, weakness, history of cerebrovascular accident. In rehab, the patient had 2 epis odes of chest pain. Old inferior wall myocardial infarction on EKG, diabetes mellitus, hypertension, hypercholesterolemia, hypokalemia. PLAN: On 07/23/2016, the patient's sodium was 139, and yesterday on 07/24/2016, it was reported at 126, and I repeated the sodium on the suspicion that probably it was drawn from the arm, which has IV flu id running. So repeat sodium came back to 135. The patient's potassium was low. Potassium was give n, and potassium yesterday came to 3.5. I am going to give K-Dur today 20, and will repeat SMA-7 in the morning. The patient is on aspirin 81 mg p.o. daily, atorvastatin 40 p.o. daily, Paxil 10 mg samira ly, Plavix 75 mg daily, Lisinopril 20 p.o. daily. Since blood pressure is high, we will add Norvasc 5 mg to therapy. The patient is scheduled for cardiac cath tomorrow by Dr. Nagel, and Dr. Nagel will b e following the patient starting tomorrow. Jon Jackson MD cc: [id number] TT: 07/25/2016 12:22:36 Confirmation # [id number] Dictation # [id number] jn
[2016-07-25] MEDS: Potassium Chloride 20 mEq ER Tab PO SCH (14:23)
--- NOTE | 2016-07-25 22:49 | CP.PCM.PN ---
Subjective - Date & Time of Evaluation Date of Evaluation: 07/25/16 Time of Evaluation: 22:49 - Subjective Subjective: Patient was seen at bedside because she complained of sacral pain. States that she has this pain since she went for CT scan and was transferred from table to stretcher. Has no other complaints now. States that she is on Ultram at home for her left hip pain secondary to arthritis. Medical record was reviewed. This 70 year old white woman was admitted anorexia, generalized weakness, feeling of not well being, nausea, headache,dehydration. Has PMH of HTN,NIDDM, CVA with left hemiparesis, HLD, depression. Objective - Vital Signs/Intake and Output Vital Signs (last 24 hours): Temp Pulse Resp BP Pulse Ox 97.5 F L 84 20 142/82 97 07/25/16 18:00 07/25/16 22:00 07/25/16 18:00 07/25/16 21:54 07/25/16 18:00 Intake and Output: 07/25/16 07/26/16 18:59 06:59 Intake Total 780 Output Total 700 Balance 80 - Medications Medications: Current Medications Amlodipine Besylate (Norvasc) 5 mg PO DAILY [facility] Last Admin: 07/25/16 12:28 Dose: 5 mg Aspirin (Aspirin Chewable) 81 mg PO DAILY [facility] Last Admin: 07/25/16 09:55 Dose: 81 mg Atorvastatin Calcium (Lipitor) 40 mg PO DAILY [facility] Last Admin: 07/25/16 09:54 Dose: 40 mg Clopidogrel Bisulfate (Plavix) 75 mg PO DAILY [facility] Last Admin: 07/25/16 09:54 Dose: 75 mg Insulin Human Lispro (Humalog Med) 0 units SC ACHS [facility] PRN Reason: Protocol Last Admin: 07/25/16 22:18 Dose: Not Given Lisinopril (Zestril) 20 mg PO DAILY [facility] Last Admin: 07/25/16 09:54 Dose: 20 mg Metoprolol Tartrate (Lopressor) 25 mg PO HS [facility] Last Admin: 07/25/16 21:54 Dose: 25 mg Ondansetron HCl (Zofran Inj) 4 mg IVP Q6H PRN PRN Reason: Nausea/Vomiting Pantoprazole Sodium (Protonix Ec Tab) 40 mg PO 0630 [facility] Last Admin: 07/25/16 06:36 Dose: 40 mg Paroxetine HCl (Paxil) 10 mg PO DAILY [facility] Last Admin: 07/25/16 09:54 Dose: 10 mg Potassium Chloride (K-Dur 20 Meq Er Tab) 20 meq PO BRK [facility] Last Admin: 07/25/16 14:23 Dose: 20 meq - Labs Labs: 07/24/16 14:30 PT 11.9 Seconds (9.9-11.8) H 07/22/16 12:30 INR 1.10 (0.93-1.08) H 07/22/16 12:30 APTT 28.7 Seconds (23.7-30.8) 07/22/16 12:30 - Constitutional Appears: Well, No Acute Distress - Head Exam Head Exam: ATRAUMATIC, NORMAL INSPECTION, NORMOCEPHALIC - Eye Exam Eye Exam: Normal appearance - ENT Exam ENT Exam: Mucous Membranes Moist, Normal External Ear Exam - Neck Exam Neck Exam: Normal Inspection - Respiratory Exam Respiratory Exam: NORMAL BREATHING PATTERN - Cardiovascular Exam Cardiovascular Exam: absent: JVD - GI/Abdominal Exam GI & Abdominal Exam: absent: Distended - Rectal Exam Rectal Exam: Deferred - Extremities Exam Extremities Exam: Normal Inspection - Back Exam Back Exam: NORMAL INSPECTION Additional comments: NO localized tenderness in sacral area. No erythema. No swelling. Patient was seen in presence of nurse Rashi. - Neurological Exam Neurological Exam: Alert, Oriented x3 - Psychiatric Exam Psychiatric exam: Normal Affect, Normal Mood - Skin Skin Exam: Normal Color Assessment and Plan - Assessment and Plan (Free Text) Assessment: A/P:Sacral pain. Sacral contusion. Generalized weakness. HTN. Ultram 50 mg PO x 1.
[2016-07-26] MEDS: Pantoprazole 40 mg EC Tab PO SCH (05:41)
[2016-07-26 07:17] LABS: CALCIUM 8.7 mg/dL (8.4-10.5); MAGNESIUM 1.2 mg/dL (1.7-2.2); PHOSPHOROUS 2.6 mg/dL (2.5-4.5); POTASSIUM 4.1 mmol/L (3.6-5.0)
[2016-07-26] MEDS: Insulin Lispro (humaLOG) MEDIUM Coverage SC SCH ×3 (07:47→16:59)
[2016-07-26] MEDS ORDERED: Magnesium Sulfate 2 GM in Sodium Chloride 0.9% 100 ML IVPB ONE (07:55)
[2016-07-26] MEDS: Potassium Chloride 20 mEq ER Tab PO SCH (08:29)
--- NOTE | 2016-07-26 12:28 | PN ---
DATE: 07/26/2016 The patient is a 70-year-old, seen and examined, sitting in chair. She was seen in cardiology depart ment. Denies any chest pain or shortness of breath. She states she is eating better since she start ed on PPI. PHYSICAL EXAMINATION: VITAL SIGNS: She is afebrile, pulse 71, respirations 19, blood pressure 137/87. LUNGS: Bilateral fair airflow, no rhonchi or crackle. HEART: S1, S2 audible. ABDOMEN: Soft, nontender, no rebound, no guarding. NEUROLOGIC: She is awake and alert, communicative. EXTREMITIES: She has left hemiparesis because of her previous stroke in 10/2015. No leg edema, no ul cer. LABORATORY EXAMINATION: Sodium is 140, potassium 4.1, chloride 104, CO2 26, BUN 18, creatinine 1.2, blood sugar of 114, magnesium is 1.2. ASSESSMENT: 1. Malnutrition and poor oral intake. 2. Abnormal EKG. The patient is going for stress test today. 3. History of cerebrovascular accident with previous stroke and left hemiparesis. 4. Electrolyte imbalance. 5. Hypomagnesemia. PLAN: Potassium and magnesium are being supplemented. The patient is going for stress test. If it is negative, we can discontinue her tele and patient refused for cardiac catheterization this morning and she wants to go for stress test. If abnormal, she will consider cardiac catheterization. I alex l request for TCU evaluation. If she is accepted, she can be transferred to TCU, but if she needs [facility] rehabilitation, she can be transferred to [facility]. Discussed with patient's sisters, who we re all by the bedside and will follow up her electrolytes and magnesium level in a.m. Maritza Adams MD cc: [id number] TT: 07/26/2016 12:27:37 Confirmation # [id number] Dictation # [id number]
[2016-07-26] MEDS ORDERED: Aminophylline 25 mg/ml Inj ONE (12:56)
--- NOTE | 2016-07-26 22:13 | CON ---
DATE: 07/26/2016 Room 260, bed 2. REASON FOR CONSULTATION: Abnormal EKG, hypertension, hyperlipidemia, diabetes mellitus, CVA. HISTORY OF PRESENT ILLNESS: A 70-year-old female known to have diabetes, high blood pressure. She h ad a CVA in October 2015 and she went to rehabilitation following that. The patient also stated that sh leighton has a right-sided carotid artery angioplasty when she had CVA and the patient while in rehab she caceres d 2 episodes of dull type of chest pain which were not related to exertion. The patient is now admit gurjit with poor appetite, generalized weakness, nausea, headache, generalized malaise, but patient antonio es any chest pain, shortness of breath, palpitation. PAST MEDICAL HISTORY: Positive for hypertension, skh-[id number]-agawneyqt diabetes mellitus, hyperlipid emia, CVA in 10/2015 she was at [facility]. She stated that she had angioplasty of right carot id artery. PERSONAL HISTORY: Denies smoking, denies drinking. ALLERGIES: The patient denies any allergies. HOME MEDICATIONS: She was taking ferrous sulfate, Prozac 20 mg daily, tramadol 50 mg twice a day p.r .n., Lantus 10 units at bedtime, metoprolol 25 mg at bedtime, Lipitor 40 mg daily, lisinopril 20 mg d , aspirin 81 mg daily, metformin 1000 mg twice a day. PERSONAL HISTORY: The patient used to be a heavy smoker in the past, does not smoke now. No history of drinking. REVIEW OF SYSTEMS: All the systems were reviewed, positive mentioned in the history, others were neg ative. The patient has residual left side hemiparesis due to old CVA. PHYSICAL EXAMINATION: VITAL SIGNS: Blood pressure 137/87, respirations 19, pulse 71, temperature 97.3. HEENT: Head is normocephalic. Eyes: Pupils normal. Conjunctivae normal. Nose and throat normal. NECK: JVP low. Carotid equal. THORAX: AP diameter normal. LUNGS: Clear. CARDIOVASCULAR: S1, S2. ABDOMEN: Soft, nontender, no organomegaly. Bowel sounds normal. EXTREMITIES: No clubbing, no cyanosis. LABORATORY DATA: WBC 6.6, hemoglobin 12.3, hematocrit 37.3, platelet 272. Sodium 140, potassium 4.1 , BUN 18, creatinine 1.2, random sugar 114, magnesium 1.2. Cholesterol 148, HDL 50, LDL 55. TSH 0.6 8. Troponin x 2 negative. EKG showed regular sinus rhythm, old inferior wall OK, RBB pattern. Ches t x-ray: No active disease. Echocardiogram on 07/23/2016: Left ventricle normal size. There is nor mal left ventricle wall thickness, systolic function mildly impaired, probably close to 45%, transmit ral Doppler shows grade I abnormal relaxation pattern. DIAGNOSES: Generalized weakness with nausea, generalized malaise, dehydration and electrolyte imbala nce, low magnesium, low potassium, hypertension, hyperlipidemia, non-insulin dependent diabetes melli tus, old cerebrovascular accident with left hemiparesis EKG showed inferior wall myocardial infarctio n, history of right angioplasty following cerebrovascular accident. PLAN: The patient initially was seen by Dr. Nagel and now family request, we have been asked to consu lt the patient, I know the whole family, I have been treating them. The patient was scheduled for ca rdiac catheterization today, but she is refusing the catheterization; however, she agreed for IV Roro scan stress test and whole discussion was done with the family and they also did not want to do dylon terization at this point and they also agreed for the stress test. So patient is going to have IV Le xiscan stress test today. The patient is on aspirin 81 mg p.o. daily, Lipitor 40 mg p.o. daily, meto prolol 25 mg daily. The patient getting magnesium sulfate 2 gram IV today, amlodipine 5 mg daily, Pa xil 10 mg p.o. daily, Plavix 75 mg daily, Protonix 40 p.o. daily, lisinopril 20 mg daily. We will co ntinue present therapy and will follow the stress test. We will follow with you. Jon Jackson MD cc: [id number] TT: 07/26/2016 22:12:27 Confirmation # [id number] Dictation # [id number] jn
--- NOTE | 2016-07-26 22:25 | CARD ---
APPROVED REPORT Protocol: LEXISCAN Test Type: Lexiscan Sestamibi Stress Test Attending Physician: Dr. Princess Jackson Referring Physician: Dr. Princess Adams Test Indications: Chest Pain Height:5 ft 5 in Weight:134lbs Medications: Norvasc ASA Lipitor Plavix Insulin Zestril Lopressor Protonix Medical History: 70 y/o female hx of CVA Target HR: 149 bpm Resting ECG: RSR. Old Inf.Wall LA. RBBB. ST-T Changes. Resting Heart Rate: 76 bpm Resting Blood Pressure: 102/60mmHg Submaximum (85%): 127 bpm PROCEDURE Pharmacologic stress testing was performed using 0.4mg per 5ml of regadenoson given intravenously over 7-10 seconds. POST EXERCISE Reason for Termination: Protocol completed Target HR: No 78% of Maximum Predicted HR: 149 bpm Exercise duration: 08:51 min:sec, 0 Stage Exercise capacity: 1.0METs Max Blood Pressure: 102/60mmHg Blood Pressure response to exercise: normal resting BP - appropriate response Heart Rate response to exercise: appropriate Chest Pain: No, none Angina index: 0 Arrhythmia: No, none ST Change: Yes, 0.5-1mm Additional ST Depression V2,V3. Deviation: 0 mm TEST SUMMARY [id number]/60.0. INFUSIONDOSE 101:000.00.01.445448/60.2. INFUSIONDOSE 201:000.00.01.0117/.1. INFUSIONDOSE 301:000.00.01.0109/.0. INFUSIONDOSE 401:000.00.01.0100/.0. INFUSIONDOSE 501:000.00.01.090/.0. INFUSIONDOSE 601:000.00.01.093/.1. INFUSIONDOSE 701:000.00.01.087/.0. INFUSIONDOSE 801:000.00.01.085/.0. INFUSIONDOSE 900:500.00.01.0./.0. INTERPRETATION Stress EKG Conclusion: IV LEXISCAN NJUCLEAR STRESS TEST NEGATIVE FOR CHEST PAIN. 0.5-1MM ADDITIONAL ST DEPRESSION IN V2,V3. NUCLEAR SCAN REPORT PENDING. Signed by Princess Jackson Electronically Approved: 07/26/2016 14:18:55 EXAM: Myocardial Perfusion REST/STRESS Stress Test Type: Pharmacologic Imaging Protocol Rest Spect myocardial perfusion imaging was performed in supine position 140 minutes following the injection of 10.9 mCi of Tc-99 Myoview. At peak stress, the patient was injected intravenously with 30.4mCi of Tc-99 tetrofosmin after an infusion time of minutes and 10 seconds. Gated Stress Spect was performed 48 minutes after intravenous Tc-99 Myoview injection. The images were gated to evaluate regional wall motion and calculate ventricular ejection fraction.Images were reconstructed using backfilter projection method in short horizontal and verticle long axis. Spect slices were generated. LV Perfusion The quality of the study is good. The left ventricle is mildly enlarged in size. The right ventricle is unremarkable. The lung uptake is normal. The distribution of tracer reveals a moderate sized area of severely decreased perfusion in the mid to basal inferior wall on the stress study. The remainder of the LV myocardium is unremarkable. The rest myocardial perfusion study shows no significant change. Wall Motion Wall motion study shows inferior hypokinesis of the left ventricle. LVEF = 50%. Conclusion 1. Abnormal SPECT myocardial perfusion study. 2. Fixed, infeiror defect is suggestive of prevous myocardial injury/ infarct. 3. Borderline normal LV function despite inferior hypokinesis.
[2016-07-27] MEDS: Pantoprazole 40 mg EC Tab PO SCH (06:33)
[2016-07-27 07:26] LABS: ALB/GLOB RATIO 1.2 (1.1-1.8); BILIRUBIN,TOTAL 0.4 mg/dL (0.2-1.3); CALCIUM 8.8 mg/dL (8.4-10.5); MAGNESIUM 1.6 mg/dL (1.7-2.2); POTASSIUM 4.5 mmol/L (3.6-5.0); TOTAL PROTEIN 6.3 g/dL (5.8-8.3)
[2016-07-27 07:58] VITALS: RESP 20
[2016-07-27] MEDS: Insulin Lispro (humaLOG) MEDIUM Coverage SC SCH ×4 (08:43→21:34)
--- NOTE | 2016-07-27 10:17 | PQF MALNUT ---
This form is a permanent part of the medical record Dr. Adams, Patient admitted with weakness, poor po intake, electrolyte imbalances. Dietary noted that patient has lost large amount weight last 3 months due to poor nutrition. Nutritional supplements added to diet. Albumin level decreasing. You noted malnutrition in your progress notes of 07/26. Could you specify the degree/ severity of this nutritional diagnosis? Clarification of your documentation is requested to better reflect the severity of illness and intensity of treatment of your patient. Indicators present [] Cachexia (due to severe malnutrition) [] Albumin < 2.8 [] Decreased Pre-albumin [] Dietary Consult [] Provider documentation reflects BMI of: []_ [] Low serum proteins [x] Documented weight loss [] Inability to consume adequate caloric intake [x] Anorexic [] Other: [] Location in the medical record that reflects the above clinical findings: [] Treatment Provided: [x] PHYSICIAN'S RESPONSE Based on your medical judgment of the clinical indicators outlined above, are you treating this patient for a known or suspected: Type of Malnutrition Severity x[] Mild [] Moderate [] Severe [] Protein calorie [] Mild [] Moderate [] severe [] Other, please indicate: []_ x[] If Unable to Determine, please check the box, sign and date. Present On Admission (POA) Indicator: [] Present at the time of admission [] Not present at the time of admission [] Clinically Undetermined In responding to this query, please exercise your independent professional judgment. The fact that a question is asked does not imply that any particular answer is desired or expected. Thank you for your clarification on this documentation. If you have any questions please call:[ ] * Thank you, [ ]Lesley Chaudhry [facility] #[id number] interior design consultant Malnutrition Malnutrition results from an imbalance between the body's intake of nutrients and the body's use of nutrients to fuel energy expenditure. Malnutrition may be described as mild, moderate or severe. There are variations in clinical indicators, lab values and risk factors with each type and degree. When reviewing the nutritional status of the client, the entire clinical picture should be assessed and taken into consideration rather than a focus on a single laboratory value. Mild Malnutrition: patient's weight is noted at 85-95% of normal body weight; BMI 18-18.9; serum albumin 3.0-3.4; total lymphocyte count [id number]. Moderate Malnutrition: patient's weight is noted at 75-85% of normal body weight ; BMI 16-17.9; serum albumin 2.4-3.0; total lymphocyte count 800-1500. Severe Malnutrition: patient's weight is noted at <75% of normal body weight, BMI <16, serum albumin <2.4, total lymphocyte count <800, abnormally low VLDL/ LDL levels, creatinine <0.6, BUN <8, cholesterol <160. Other clinical indicators include: loss of subq fat, muscle wasting of the extremities, skin lesions, decubitus ulcers, hair loss, lethargy, constipation, decreased pulse/ respiratory rates, relative hypotension, hepatomegaly d/t fat infiltration, poor wound healing.~~~~~~ Risk: poor intake d/t food avoidance or NPO status for >7 days, protracted nutritional losses from malabsorption states, hypermetabolic state such as sepsis, prolonged fever, extensive trauma or napoles, alcohol/drug abuse, advanced age, CKD, trouble chewing or swallowing, some medications, depression/ social isolation, special diets such as low protein Treatment: dietary consultation, protein-calorie dietary supplementation, daily weights, PEG tube, psychiatric consultation, appetite stimulants (Megace). [employer] Principles of Internal Medicine, 17th edition, chapters 9, 72 and 234. The [employer] Nutritional Support Core Curriculum, 2007 MTDD
[2016-07-27] MEDS: Potassium Chloride 20 mEq ER Tab PO SCH (10:35)
--- NOTE | 2016-07-27 13:50 | PN ---
DATE: 07/27/2016 REASON FOR CONSULTATION AND FOLLOWUP: Abnormal EKG, hypertension, hyperlipidemia, diabetes, CVA, sta tus post stress test that was negative. BRIEF CLINICAL HISTORY: A 70-year-old female with past medical history of diabetes, hypertension, hy perlipidemia, history of CVA, admitted with 2 episodes of chest pain and ____ pain. The patient unde rwent a stress test which was negative. The patient's friend was there, explained the patient's stre ss test finding. PHYSICAL EXAMINATION: As follows: VITAL SIGNS: Temperature afebrile, heart rate 70, blood pressure 121/76. HEENT: PERRLA, intact. NECK: Supple. No carotid bruits. No thyromegaly. CHEST: Clear to auscultation. HEART: S1, S2 regular. ABDOMEN: Soft. EXTREMITIES: Clubbing and cyanosis negative. BLOOD WORKUP: As follows: WBC 6.6, hemoglobin 12.3, hematocrit 37.3, platelet count 272. Chemistry shows sodium 130, potassium ____, chloride 104, carbon dioxide 23, anion gap of 17, BUN 19, creatini ne 1.2. IMPRESSION: Diabetes, hypertension, hyperlipidemia, cerebrovascular accident. Stress test done yest erday that shows abnormal SPECT myocardial perfusion study, fixed defect from previous injury, ejecti on fraction 50%, no ischemia noted, no reversible ischemia noted. The patient had echocardiography d one on 07/23/2016 that shows systolic function, mildly impaired diastolic dysfunction. RECOMMENDATIONS: Explained to the patient at length with a friend that a stress test is 85% to 90% _ ___ sensitivity and negative means high probability the patient is negative, but cannot completely ru le out underlying coronary artery disease. If the patient develops chest pain or chest discomfort, s hortness of breath, suggest cardiac catheterization. The patient understood. Also discussed with Dr Dolores Adams. Thank you, Dr. Adams for providing the opportunity in taking care of the patient. We will follow w ith you. Jon Murray MD cc:Maritza Adams MD 305 TT: 07/27/2016 13:49:39 Confirmation # [id number] Dictation # [id number]
--- NOTE | 2016-07-27 17:01 | DS ---
The patient is a 70-year-old, seen and examined, sitting in chair, comfortable, eating and tolerating . PHYSICAL EXAMINATION: GENERAL: She looks much better, gained some weight. No chest pain, no shortness of breath. VITAL SIGNS: She is afebrile, pulse 67, respirations 20, blood pressure 121/76. LUNGS: Bilateral fair airflow, no rhonchi or crackle. HEART: S1, S2 audible. No murmur. ABDOMEN: Soft and nontender, no rebound, no guarding. NEUROLOGIC: She is awake and alert, communicative, left hemiparesis. LABORATORY EXAM: Sodium 138, potassium 4.5, chloride 104, CO2 , BUN 19, creatinine 1.2, blood s ugar , magnesium is 1.6. She had no CBC today. She had a myocardial stress test done that shows abnormal SPECT myocardial perfusion study, fixed inf erior defect suggestive of previous myocardial injury, borderline normal LV function. ASSESSMENT AND PLAN: 1. Status post cerebrovascular accident with deconditioning and difficulty walking. 2. Poor oral intake, seems to be improving now. 3. Hypertension. 4. Abnormal stress test because of previous cerebrovascular accident. PLAN: I discussed with Dr. Murray, no plans for doing cardiac catheterization for now. We will contin ue her on Protonix and aspirin 81 daily. Monitor blood sugar. Potassium has been supplemented. Con tinue her on metoprolol. She is on magnesium oxide 400 twice a day. We will continue that. She is on Norvasc 5 mg daily. She is on Paxil, Plavix. She will continue on Protonix. The arrangement is being made to send her to subacute rehabilitation. She has been accepted in [place]. However, [facility] and we will talk to her. If she agrees, she can be discharged today to [facility]. Maritza Adams MD cc: [phone] TT: 07/27/2016 17:01:03 tanya
[2016-07-27] MEDS: Magnesium Oxide 400 mg Tab UD PO SCH (17:09)
[2016-07-28] MEDS: Pantoprazole 40 mg EC Tab PO SCH (06:11)
[2016-07-28 07:16] LABS: ALB/GLOB RATIO 1.1 (1.1-1.8); BILIRUBIN,TOTAL 0.4 mg/dL (0.2-1.3); CALCIUM 8.7 mg/dL (8.4-10.5); POTASSIUM 4.8 mmol/L (3.6-5.0)
[2016-07-28] MEDS: Insulin Lispro (humaLOG) MEDIUM Coverage SC SCH ×3 (08:01→16:41)
[2016-07-28] MEDS: Potassium Chloride 20 mEq ER Tab PO SCH (08:04)
[2016-07-28] MEDS: Magnesium Oxide 400 mg Tab UD PO SCH ×2 (10:19→17:12)
[2016-07-28 16:15] VITALS: BP 104/61; PULSE 73; TEMP 98.2; O2SAT 97
--- NOTE | 2016-07-28 20:19 | DS ---
The patient is a 70-year-old, seen and examined sitting in chair, comfortable. No chest pain, no demetri rtness of breath. Eating better. VITAL SIGNS: She is afebrile, pulse 73, respirations 20, blood pressure 104/61. LUNGS: Bilateral good airflow. No rhonchi or crackle. HEART: S1, S2 audible. No murmur. ABDOMEN: Soft, nontender, no rebound, no guarding. NEUROLOGICALLY: She is awake and alert, communicative. She has left hemiparesis. LABORATORY EXAMINATION: Sodium 137, potassium 4.8, chloride 106, CO2 of 24, BUN 21, creatinine 1.3. Blood sugar of 110, magnesium 1.6. ASSESSMENT: 1. Status post cerebrovascular accident with left hemiparesis. 2. Probably gastritis. 3. Hypertension. 4. Abnormal stress test because of previous myocardial infarction. 5. History of carotid stenosis. PLAN: The patient is accepted in TCU. She will be transferred to TCU where she will receive her phy sical therapy, and will monitor closely. I will order for carotid Doppler for followup since she had balloon angioplasty done, and according to the sister that was supposed to be repeated in 6-8 months . Maritza Adams MD cc: [phone] TT: 07/28/2016 20:18:13 jn
== END 2016-07-28 21:34 | DRG 641 ==
LOC: ED 11:26 → ERH 14:16 → 2RNO 15:42 → OBSVTOIN 07-23 21:43 → 5RNO 07-26 19:18
PROVIDERS: ADMIT Internal Medicine; ATTEND Internal Medicine
DX: E86.0 Dehydration (principal); E44.1 Mild protein-calorie malnutrition; I69.354 Hemiplegia and hemiparesis following cerebral infarction affecting left non-dominant side; E11.9 Type 2 diabetes mellitus without complications; I10 Essential (primary) hypertension; E78.5 Hyperlipidemia, unspecified; F32.9 Major depressive disorder, single episode, unspecified; E87.6 Hypokalemia; K29.70 Gastritis, unspecified, without bleeding; R62.7 Adult failure to thrive; E83.42 Hypomagnesemia; M13.851 Other specified arthritis, right hip; E78.00 Pure hypercholesterolemia, unspecified; R26.2 Difficulty in walking, not elsewhere classified; N20.0 Calculus of kidney; I25.10 Atherosclerotic heart disease of native coronary artery without angina pectoris; I25.2 Old myocardial infarction; Z68.22 Body mass index [BMI] 22.0-22.9, adult; Z79.82 Long term (current) use of aspirin; Z79.84 Long term (current) use of oral hypoglycemic drugs

== ENCOUNTER 2016-07-28 21:34 | Inpatient (IN) | payer OTHER ==
[2016-07-28 22:15] VITALS: BMI 21.5
[2016-07-29] MEDS ORDERED: Pneumococcal 23-Valent Vaccine IM ONE (01:17)
[2016-07-29] MEDS: Pantoprazole 40 mg EC Tab PO SCH (05:56)
[2016-07-29] MEDS: Insulin Lispro (humaLOG) MEDIUM Coverage SC SCH ×4 (06:30→23:46)
[2016-07-29] MEDS: Potassium Chloride 20 mEq ER Tab PO SCH (08:35)
[2016-07-29] MEDS: Magnesium Oxide 400 mg Tab UD PO SCH ×2 (09:45→17:13)
--- NOTE | 2016-07-29 13:23 | HP ---
HISTORY OF PRESENT ILLNESS: The patient is a 70-year-old who had CVA with left hemiparesis in 10/2015 . She was initially in [facility], went home. According to sister, she has not been eating and drinkin g enough. She was not participating in therapy either. Because of increasing weakness, she was brou ght to Emergency Room for evaluation. She was found to have abnormal EKG, was evaluated by Dr. Murray, underwent cardiac cath, underwent stress test that is unremarkable. PAST MEDICAL HISTORY: Significant for: 1. Hypertension. 2. Recent strokes. 3. Hyperlipidemia. 4. Gastritis. ALLERGIES: She is not allergic to any medication. MEDICATIONS AT HOME: She is on magnesium supplementation, lisinopril 20 mg daily, Prozac 20 mg daily , Lipitor 40 mg daily, aspirin 81 daily, tramadol as needed, amlodipine 5 mg daily, potassium 20 mEq daily, Protonix 40 daily, Paxil 10 mg daily, metoprolol 25 at bedtime, metformin 1000 twice a day. SOCIAL HISTORY: She lives with her sister. She used to be a heavy smoker in the past, but quit sinc e the stroke. PHYSICAL EXAMINATION: GENERAL: She is awake and alert, communicative. VITAL SIGNS: She is afebrile, pulse 76, respirations 18, blood pressure 132/70. LUNGS: Bilateral fair airflow, no rhonchi or crackle. HEART: S1, S2 audible. No murmur. ABDOMEN: Soft, nontender, no rebound, no guarding. NEUROLOGIC: She is awake and alert, communicative, left hemiparesis, 1 by 5 muscle tone. ASSESSMENT: 1. Abnormal EKG, status post stress test that shows previous myocardial infarction. No sign of acut e ischemia. 2. Hypertension. 3. Hyperlipidemia. 4. History of smoking. 5. Status post cerebrovascular accident with left hemiparesis. PLAN: Currently, patient is on aspirin 81 daily, that will be continued. We will put her on potassi um, atorvastatin, metoprolol, magnesium, amlodipine, Paxil, and Plavix. She is also getting Protonix . We will continue her on lisinopril. Encourage physical therapy. We will follow up this patient i n a.m. Maritza Adams MD cc: [phone] TT: 07/29/2016 13:23:01 sn
[2016-07-30] MEDS: Pantoprazole 40 mg EC Tab PO SCH (05:33)
[2016-07-30] MEDS: Insulin Lispro (humaLOG) MEDIUM Coverage SC SCH ×4 (06:35→22:00)
[2016-07-30] MEDS: Potassium Chloride 20 mEq ER Tab PO SCH (07:57)
[2016-07-30] MEDS: Magnesium Oxide 400 mg Tab UD PO SCH ×2 (09:53→17:43)
--- NOTE | 2016-07-30 19:49 | PN ---
DATE: 07/30/2016 SUBJECTIVE: The patient is 70 years old, seen and examined, lying in bed. She states she had a lot of therapy today and she feels very tired. Eating well. PHYSICAL EXAMINATION: VITAL SIGNS: She is afebrile, pulse 96, respirations 18, blood pressure 116/83. LUNGS: Bilateral good airflow, no rhonchi or crackle. HEART: S1, S2 audible. ABDOMEN: Soft, nontender, no rebound, no guarding. NEUROLOGIC: The patient is awake and alert, communicative. She has left hemiparesis because of prev ious CVA. ASSESSMENT AND PLAN: 1. Generalized weakness, improving. 2. Status post cerebrovascular accident with left hemiparesis. 3. Generalized weakness. 4. Difficulty walking. 5. Hypertension. 6. Hyperglycemia. PLAN: Currently, the patient is on aspirin. She is on Lipitor. She is getting metoprolol at bedtim e. She is on Paxil and Plavix. Continue her on Protonix. Tramadol is as needed. Will reevaluate t he patient in a.m. Continue these current medications. Maritza Adams MD cc: [phone] TT: 07/30/2016 19:48:33 Confirmation # [id number] Dictation # [id number] tanya
[2016-07-31] MEDS: Pantoprazole 40 mg EC Tab PO SCH (05:54)
[2016-07-31] MEDS: Insulin Lispro (humaLOG) MEDIUM Coverage SC SCH ×4 (06:45→21:47)
[2016-07-31] MEDS: Potassium Chloride 20 mEq ER Tab PO SCH (08:24)
[2016-07-31] MEDS: Magnesium Oxide 400 mg Tab UD PO SCH ×2 (10:28→17:58)
--- NOTE | 2016-07-31 12:03 | PN ---
DATE: 07/31/2016 SUBJECTIVE: The patient is a 70-year-old, seen and examined, doing well, complaining of feeling very tired, otherwise feeling okay. PHYSICAL EXAMINATION: VITAL SIGNS: The patient is afebrile, pulse 77, respirations 18, blood pressure 122/76. LUNGS: Bilateral fair airflow, no rhonchi, or crackle. HEART: S1, S2 audible. No murmur. ABDOMEN: Soft, nontender, no rebound, no guarding. NEUROLOGIC: She is awake and alert, communicative. EXTREMITIES: She has all left-sided weakness. LABORATORY: Blood sugar is 114. ASSESSMENT: 1. Generalized weakness. 2. Abnormal EKG, but stress test is unremarkable. She has previous inpatient CVA and myocardial infa rction. 3. Hyperlipidemia. 4. Hypertension. 5. Gastritis. PLAN: Currently, the patient is on aspirin 81 daily. She is on atorvastatin, metoprolol, amlodipine , Paxil, Plavix and on tramadol as needed. Continue physical therapy. Discussed with physical thershobha hi to arrange for left hand and wrist splint. Maritza Adams MD cc: [phone] TT: 07/31/2016 12:02:32 Confirmation # [id number] Dictation # [id number] ln
[2016-08-01] MEDS: Pantoprazole 40 mg EC Tab PO SCH (05:37)
[2016-08-01] MEDS: Insulin Lispro (humaLOG) MEDIUM Coverage SC SCH ×4 (06:59→22:10)
[2016-08-01] MEDS: Potassium Chloride 20 mEq ER Tab PO SCH (08:07)
[2016-08-01] MEDS: Magnesium Oxide 400 mg Tab UD PO SCH ×2 (11:00→18:18)
[2016-08-02] MEDS: Pantoprazole 40 mg EC Tab PO SCH (05:39)
[2016-08-02] MEDS: Insulin Lispro (humaLOG) MEDIUM Coverage SC SCH ×4 (06:44→22:14)
[2016-08-02] MEDS: Potassium Chloride 20 mEq ER Tab PO SCH (08:34)
[2016-08-02] MEDS: Magnesium Oxide 400 mg Tab UD PO SCH ×2 (11:00→18:20)
--- NOTE | 2016-08-02 19:11 | PN ---
DATE: 08/02/2016 SUBJECTIVE: The patient is a 70-year-old, seen and examined, sitting in chair, comfortable, eating a nd tolerating. PHYSICAL EXAMINATION: VITAL SIGNS: She is afebrile, pulse 72, respirations 18, blood pressure 122/70. LUNGS: Bilateral fair airflow, no rhonchi or crackle. HEART: S1, S2 audible. No murmur. ABDOMEN: Soft, nontender, no rebound, no guarding. NEUROLOGIC: She is awake and alert, communicative. Moves all extremities except she has left hemipa resis. She has good range of motion in upper and lower extremities on the right side. LABORATORY: Blood sugar is ____. ASSESSMENT: 1. Status post cerebrovascular accident with left hemiparesis. 2. Hypertension. 3. Hyperlipidemia. 4. Non-insulin dependent diabetes. 5. Deconditioning. 6. Depression. 7. Peptic ulcer disease. PLAN: We will continue patient on current medication. She has left turner skin lesion that needs to b e evaluated. I will request Dr. Medina to have a look at her for her left turner lesion. She also n eeds splint for her left wrist and hand, since she is developing flexion contracture. Will reevaluat e the patient in a.m. Maritza Adams MD cc: [phone] TT: 08/02/2016 19:11:03 Confirmation # [id number] Dictation # [id number] radha
--- NOTE | 2016-08-03 04:47 | CP.PCM.CON ---
<Thomas Tesfaye - Last Filed: 08/03/16 07:11> History of Present Illness - History of Present Illness History of Present Illness: Surgery consult for Dr. Medina Patient is a 69 yo female, pmhx of Basal cell CA, CVA with L hemiperesis on Plavix ,arthritis, htn and diabetes, presents with weakness. Surgery was consulted to evaluate L LE lesion. Pt reports that she had basal cell CA on the LLE that was treated w topical agent last year. It was about 3cm x3cm and was bleeding. Lesion was healed with the treatment. Since then she had bacetracin and dressing applied to the healed area until a week ago when she was admitted. Pt was admitted for weakness and loss of appetite. Few days ago she noticed rash and small blisters around the area where she had the Basal Cell CA. Pt reports itchiness. She denies F/C/N/V/D /CP/SOB/insect bites/new topical agents/scratching. Review of Systems - Review of Systems Review of Systems: See HPI Past Patient History - Past Social History Smoking Status: Former Smoker - CARDIAC Hx Hypertension: Yes - PULMONARY Hx Respiratory Disorders: No - NEUROLOGICAL HX Cerebrovascular Accident: Yes (10/2015; L hemiparesis) - HEENT Hx HEENT Problems: No - RENAL Hx Chronic Kidney Disease: No - ENDOCRINE/METABOLIC Hx Diabetes Mellitus Type 2: Yes - HEMATOLOGICAL/ONCOLOGICAL Hx Blood Disorders: No - INTEGUMENTARY Hx Dermatological Problems: Yes Other/Comment: old bruises b/l knees, lle dry skin/ ble skin discolored - MUSCULOSKELETAL/RHEUMATOLOGICAL Hx Falls: Yes - GASTROINTESTINAL Hx Gastrointestinal Disorders: No - GENITOURINARY/GYNECOLOGICAL Hx Genitourinary Disorders: No Hx Reproductive Disorders: No - PSYCHIATRIC Hx Substance Use: No - SURGICAL HISTORY Hx Cholecystectomy: Yes Other/Comment: carotid Meds Allergies/Adverse Reactions: Allergies Allergy/AdvReac Type Severity Reaction Status Date / Time No Known Allergies Allergy Verified 07/28/16 22:15 - Medications Medications: Current Medications Acetaminophen (Tylenol 325mg Tab) 650 mg PO Q4H PRN; Protocol PRN Reason: mild pain Amlodipine Besylate (Norvasc) 5 mg PO DAILY [facility] PRN Reason: Protocol Last Admin: 08/02/16 11:07 Dose: 5 mg Aspirin (Aspirin Chewable) 81 mg PO 0800 [facility] PRN Reason: Protocol Last Admin: 08/02/16 08:34 Dose: 81 mg Atorvastatin Calcium (Lipitor) 40 mg PO DAILY [facility] PRN Reason: Protocol Last Admin: 08/02/16 11:00 Dose: 40 mg Clopidogrel Bisulfate (Plavix) 75 mg PO 0800 [facility] PRN Reason: Protocol Last Admin: 08/02/16 08:34 Dose: 75 mg Insulin Human Lispro (Humalog Med) 0 units SC ACHS [facility] PRN Reason: Protocol Last Admin: 08/02/16 22:14 Dose: Not Given Lisinopril (Zestril) 20 mg PO DAILY [facility] PRN Reason: Protocol Last Admin: 08/02/16 11:09 Dose: 20 mg Magnesium Oxide (Mag-Ox) 400 mg PO BID [facility] PRN Reason: Protocol Last Admin: 08/02/16 18:20 Dose: 400 mg Metoprolol Tartrate (Lopressor) 25 mg PO HS [facility] PRN Reason: Protocol Last Admin: 08/02/16 22:15 Dose: 25 mg Ondansetron HCl (Zofran Inj) 4 mg IVP Q6H PRN; Protocol PRN Reason: Nausea/Vomiting Pantoprazole Sodium (Protonix Ec Tab) 40 mg PO 0630 [facility] PRN Reason: Protocol Last Admin: 08/02/16 05:39 Dose: 40 mg Paroxetine HCl (Paxil) 10 mg PO DAILY [facility] PRN Reason: Protocol Last Admin: 08/02/16 11:00 Dose: 10 mg Potassium Chloride (K-Dur 20 Meq Er Tab) 20 meq PO 0800 [facility] PRN Reason: Protocol Last Admin: 08/02/16 08:34 Dose: 20 meq Tramadol HCl (Ultram) 50 mg PO Q6H PRN; Protocol PRN Reason: Pain, moderate (4-7) Last Admin: 08/02/16 05:42 Dose: 50 mg Physical Exam - Constitutional Appears: No Acute Distress - Head Exam Head Exam: ATRAUMATIC, NORMAL INSPECTION, NORMOCEPHALIC - Eye Exam Eye Exam: EOMI, Normal appearance, PERRL Pupil Exam: NORMAL ACCOMODATION, PERRL - ENT Exam ENT Exam: Mucous Membranes Moist, Normal Exam - Neck Exam Neck exam: Positive for: Normal Inspection - Respiratory Exam Respiratory Exam: Clear to Auscultation Bilateral, NORMAL BREATHING PATTERN - Cardiovascular Exam Cardiovascular Exam: REGULAR RHYTHM - GI/Abdominal Exam GI & Abdominal Exam: Soft. absent: Distended, Firm, Guarding, Tenderness - Extremities Exam Extremities exam: Positive for: normal capillary refill, tenderness, pedal pulses present. Negative for: calf tenderness, full ROM, joint swelling, pedal edema Additional comments: L anterior lower leg has 30cm erythema targetoid lesion w 3cm central excoriation. multiple macules. - Back Exam Back exam: NORMAL INSPECTION - Neurological Exam Neurological exam: Alert, CN II-XII Intact, Normal Gait, Oriented x3 - Psychiatric Exam Psychiatric exam: Normal Affect, Normal Mood - Skin Skin Exam: Dry, Erythema, Intact, Rash, Vesicles, Warm Results - Vital Signs Recent Vital Signs: Last Vital Signs Temp 98 F 08/02/16 10:00 Pulse 72 08/02/16 11:09 Resp 18 08/02/16 10:00 BP 115/62 08/02/16 22:15 Pulse Ox 99 08/02/16 10:00 - Labs Labs: Laboratory Results - last 24 hr 08/02/16 05:24 POC Glucose (mg/dL) 116 H Assessment & Plan - Assessment and Plan (Free Text) Assessment: L LE lesion likely dermatitis -Medical management -Nystatin ointment -Keep area covered. DW Dr. Medina <Arian Medina - Last Filed: 08/04/16 09:56> Meds - Medications Medications: Current Medications Acetaminophen (Tylenol 325mg Tab) 650 mg PO Q4H PRN; Protocol PRN Reason: mild pain Amlodipine Besylate (Norvasc) 5 mg PO DAILY [facility] PRN Reason: Protocol Last Admin: 08/03/16 10:02 Dose: 5 mg Aspirin (Aspirin Chewable) 81 mg PO 0800 [facility] PRN Reason: Protocol Last Admin: 08/04/16 08:10 Dose: 81 mg Atorvastatin Calcium (Lipitor) 40 mg PO DAILY [facility] PRN Reason: Protocol Last Admin: 08/03/16 10:01 Dose: 40 mg Clopidogrel Bisulfate (Plavix) 75 mg PO 0800 [facility] PRN Reason: Protocol Last Admin: 08/04/16 08:11 Dose: 75 mg Insulin Human Lispro (Humalog Med) 0 units SC ACHS [facility] PRN Reason: Protocol Last Admin: 08/04/16 06:34 Dose: Not Given Lisinopril (Zestril) 20 mg PO DAILY [facility] PRN Reason: Protocol Last Admin: 08/03/16 10:04 Dose: 20 mg Magnesium Oxide (Mag-Ox) 400 mg PO BID [facility] PRN Reason: Protocol Last Admin: 08/03/16 17:46 Dose: 400 mg Metoprolol Tartrate (Lopressor) 25 mg PO HS [facility] PRN Reason: Protocol Last Admin: 08/03/16 22:12 Dose: Not Given Nystatin/Triamcinolone Acetonide (Nystatin/Triamcinolone Cream) 0 ea TOP BID [facility] Last Admin: 08/03/16 17:46 Dose: 1 applic Ondansetron HCl (Zofran Inj) 4 mg IVP Q6H PRN; Protocol PRN Reason: Nausea/Vomiting Pantoprazole Sodium (Protonix Ec Tab) 40 mg PO 0630 [facility] PRN Reason: Protocol Last Admin: 08/04/16 06:35 Dose: 40 mg Paroxetine HCl (Paxil) 10 mg PO DAILY [facility] PRN Reason: Protocol Last Admin: 08/03/16 10:03 Dose: 10 mg Potassium Chloride (K-Dur 20 Meq Er Tab) 20 meq PO 0800 [facility] PRN Reason: Protocol Last Admin: 08/04/16 08:11 Dose: 20 meq Tramadol HCl (Ultram) 50 mg PO Q6H PRN; Protocol PRN Reason: Pain, moderate (4-7) Last Admin: 08/02/16 05:42 Dose: 50 mg Results - Vital Signs Recent Vital Signs: Last Vital Signs Temp 97.6 F 08/03/16 12:10 Pulse 73 08/03/16 12:10 Resp 18 08/03/16 12:10 BP 100/60 08/03/16 22:12 Pulse Ox 93 L 08/03/16 12:10 - Labs Result Diagrams: 08/04/16 06:30 08/04/16 06:30 Labs: Laboratory Results - last 24 hr 08/02/16 08/02/16 08/03/16 11:50 16:01 11:01 WBC RBC Hgb Hct MCV MCH MCHC RDW Plt Count MPV Gran % Lymph % (Auto) Mcdonald % (Auto) Eos % (Auto) Baso % (Auto) Gran # Lymph # Mcdonald # Eos # Baso # Sodium Potassium Chloride Carbon Dioxide Anion Gap BUN Creatinine Est GFR ( Amer) Est GFR (Non-Af Amer) POC Glucose (mg/dL) 293 H 104 183 H Random Glucose Calcium Iron TIBC % Saturation Total Bilirubin AST ALT Alkaline Phosphatase Total Protein Albumin Globulin Albumin/Globulin Ratio 08/03/16 08/03/16 08/04/16 16:06 21:35 05:13 WBC RBC Hgb Hct MCV MCH MCHC RDW Plt Count MPV Gran % Lymph % (Auto) Mcdonald % (Auto) Eos % (Auto) Baso % (Auto) Gran # Lymph # Mcdonald # Eos # Baso # Sodium Potassium Chloride Carbon Dioxide Anion Gap BUN Creatinine Est GFR ( Amer) Est GFR (Non-Af Amer) POC Glucose (mg/dL) 118 H 181 H 119 H Random Glucose Calcium Iron TIBC % Saturation Total Bilirubin AST ALT Alkaline Phosphatase Total Protein Albumin Globulin Albumin/Globulin Ratio 08/04/16 06:30 WBC 5.3 RBC 3.56 Hgb 10.1 L Hct 31.1 L MCV 87.4 MCH 28.4 MCHC 32.5 RDW 14.7 H Plt Count 304 MPV 9.4 Gran % 54.4 Lymph % (Auto) 33.5 Mcdonald % (Auto) 8.3 H Eos % (Auto) 3.4 Baso % (Auto) 0.4 Gran # 2.89 Lymph # 1.8 Mcdonald # 0.4 Eos # 0.2 Baso # 0.02 Sodium 137 Potassium 4.4 Chloride 103 Carbon Dioxide 25 Anion Gap 13 BUN 29 H Creatinine 1.4 Est GFR ( Amer) 45 Est GFR (Non-Af Amer) 37 POC Glucose (mg/dL) Random Glucose 105 Calcium 9.4 Iron 32 L TIBC 254 L % Saturation 13 L Total Bilirubin 0.4 AST 22 ALT 26 Alkaline Phosphatase 60 Total Protein 6.2 Albumin 3.4 Globulin 2.9 Albumin/Globulin Ratio 1.2 Assessment & Plan - Assessment and Plan (Free Text) Assessment: Dermatitis(Probable Monialisis) No evidence residual Basal cell CA Ze Punch biopsy Mycostatin tid Consult done under my direct supervision Keila Medina MD FACS
[2016-08-03] MEDS: Pantoprazole 40 mg EC Tab PO SCH (05:47)
[2016-08-03] MEDS: Insulin Lispro (humaLOG) MEDIUM Coverage SC SCH ×4 (06:45→22:11)
[2016-08-03] MEDS: Potassium Chloride 20 mEq ER Tab PO SCH (08:10)
[2016-08-03] MEDS: Magnesium Oxide 400 mg Tab UD PO SCH ×2 (10:01→17:46)
[2016-08-03] MEDS: Nystatin-Triamcinolone Cream(30 gm) TOP SCH ×2 (10:02→17:46)
--- NOTE | 2016-08-03 17:08 | CP.PCM.PCO ---
Physician Communication Note - Physician Communication Note Physician Communication Note: Dx Moniliasis-cellulitis/Biopsy to r/o Basal cell CA Done
--- NOTE | 2016-08-03 18:14 | PN ---
DATE: 08/03/2016 SUBJECTIVE: The patient is a 70-year-old seen and examined, sitting in chair, seems to be comfortabl e, doing better. Eating and tolerating better. She states she gained weight. She looks pale though , participating in therapy. PHYSICAL EXAMINATION: VITAL SIGNS: The patient is afebrile, pulse 73, respirations 18, blood pressure 129/84. LUNGS: Bilateral fair airflow, no rhonchi or crackle. HEART: S1, S2 audible. ABDOMEN: Soft, nontender, no rebound, no guarding. NEUROLOGIC: She is awake and alert. She has left hemiparesis. LABORATORY: Blood sugar is 138. ASSESSMENT AND PLAN: 1. Status post cerebrovascular accident with left hemiparesis. 2. Deconditioning and difficulty walking, improving. 3. Left turner evaluated by Dr. Medina and biopsy was done. Started on antifungal medication. 4. Noninsulin dependent diabetes. 5. Depression. 6. Peptic ulcer disease. PLAN: I will order for CBC, CMP, iron studies for a.m. and in the meantime, we will continue the pat ient on current medication. We will order iron and TIBC and depending on that, we will make a plan t hat if she needs IV. Continue physical therapy. We will evaluate the patient in a.m. Maritza Adams MD cc: [phone] TT: 08/03/2016 18:13:29 Confirmation # [id number] Dictation # [id number] sn
[2016-08-04] MEDS: Insulin Lispro (humaLOG) MEDIUM Coverage SC SCH ×4 (06:34→22:21)
[2016-08-04] MEDS: Pantoprazole 40 mg EC Tab PO SCH (06:35)
[2016-08-04 06:50] LABS: ADD MANUAL DIFF? NO
[2016-08-04 07:10] LABS: BASO # 0.02 K/mm3 (0.0-2.0); BASO % 0.4 % (0.0-3.0); EOS # 0.2 (0.0-0.7); EOS % 3.4 % (1.5-5.0); GRAN # 2.89 (1.4-6.5); GRAN % 54.4 % (50.0-68.0); HEMATOCRIT 31.1 % (36.0-48.0); LYMPH # 1.8 (1.2-3.4); LYMPH % 33.5 % (22.0-35.0); MEAN CELL VOLUME 87.4 fL (80.0-105.0); MEAN CORPUSCULAR HEMOGLOBIN 28.4 pg (25.0-35.0); MEAN CORPUSCULAR HGB CONC 32.5 g/dl (31.0-37.0); MEAN PLATELET VOLUME 9.4 fl (7.0-11.0); MONO # 0.4 (0.1-0.6); MONO % 8.3 % (1.0-6.0); PLATELET COUNT 304 10^3/uL (120.0-450.0); RED CELL DISTRIBUTION WIDTH 14.7 % (11.5-14.5); WHITE BLOOD COUNT 5.3 10^3/ul (4.5-11.0)
[2016-08-04 07:15] LABS: IRON 32 ug/dL (45-180)
[2016-08-04 07:17] LABS: ALB/GLOB RATIO 1.2 (1.1-1.8); BILIRUBIN,TOTAL 0.4 mg/dL (0.2-1.3); CALCIUM 9.4 mg/dL (8.4-10.5); POTASSIUM 4.4 mmol/L (3.6-5.0); TOTAL PROTEIN 6.2 g/dL (5.8-8.3)
[2016-08-04] MEDS: Potassium Chloride 20 mEq ER Tab PO SCH (08:11)
[2016-08-04] MEDS: Nystatin-Triamcinolone Cream(30 gm) TOP SCH ×2 (11:00→17:00)
[2016-08-04] MEDS: Magnesium Oxide 400 mg Tab UD PO SCH ×2 (11:00→17:41)
--- NOTE | 2016-08-04 12:23 | PN ---
DATE: 08/04/2016 SUBJECTIVE: The patient is a 70-year-old, seen and examined, doing well, making progress in therapy. PHYSICAL EXAMINATION: VITAL SIGNS: She is afebrile, pulse 81, respirations 18, blood pressure 130/69. LUNGS: Bilateral good airflow, no rhonchi or crackle. HEART: S1, S2 audible. No murmur. ABDOMEN: Soft, nontender, no rebound, no guarding. NEUROLOGIC: The patient is awake and alert and communicative. LABORATORY EXAMINATION: Sodium 137, potassium 4.4, chloride 103, CO2 of 25, BUN 29, creatinine 1.4, blood sugar 172. Iron is 32, TIBC is 253, saturation is 13. She had left turner lesion that was evalu ated by Dr. Medina, had biopsy done and started on antifungal, awaiting biopsy report. ASSESSMENT: 1. Status post cerebrovascular accident with deconditioning and left hemiparesis. 2. Abnormal EKG, status post stress test that is unremarkable. 3. Hypertension. 4. Borderline non-insulin dependent diabetes. PLAN: The patient is on aspirin 81 daily. We will continue that. She is on potassium 20 mEq daily, atorvastatin 40 mg daily, metoprolol 25 mg at bedtime, amlodipine 5 mg daily, Paxil 10 mg daily, Pro tonix 40 daily, Plavix 75 daily and tramadol as needed. We will continue on lisinopril. We will ree valuate patient in a.m., possible discharge in a.m. Maritza Adams MD cc: [phone] TT: 08/04/2016 12:22:11 Confirmation # [id number] Dictation # [id number] tn
--- NOTE | 2016-08-04 12:39 | CP.PCM.PN ---
Subjective - Date & Time of Evaluation Date of Evaluation: 08/04/16 Time of Evaluation: 12:35 - Subjective Subjective: SURGERY NOTE FOR DR. PHELAN 70F seen and examined at bedside. Patient denies pain and bleeding from site. NAEON. Objective - Vital Signs/Intake and Output Vital Signs (last 24 hours): Temp Pulse Resp BP Pulse Ox 97.9 F 81 18 130/69 97 08/04/16 10:00 08/04/16 10:00 08/04/16 10:00 08/04/16 10:00 08/04/16 10:00 - Medications Medications: Current Medications Acetaminophen (Tylenol 325mg Tab) 650 mg PO Q4H PRN; Protocol PRN Reason: mild pain Amlodipine Besylate (Norvasc) 5 mg PO DAILY [facility] PRN Reason: Protocol Last Admin: 08/04/16 11:00 Dose: 5 mg Aspirin (Aspirin Chewable) 81 mg PO 0800 [facility] PRN Reason: Protocol Last Admin: 08/04/16 08:10 Dose: 81 mg Atorvastatin Calcium (Lipitor) 40 mg PO DAILY [facility] PRN Reason: Protocol Last Admin: 08/04/16 11:00 Dose: 40 mg Clopidogrel Bisulfate (Plavix) 75 mg PO 0800 [facility] PRN Reason: Protocol Last Admin: 08/04/16 08:11 Dose: 75 mg Insulin Human Lispro (Humalog Med) 0 units SC ACHS [facility] PRN Reason: Protocol Last Admin: 08/04/16 12:23 Dose: 1 units Lisinopril (Zestril) 20 mg PO DAILY [facility] PRN Reason: Protocol Last Admin: 08/04/16 11:00 Dose: 20 mg Magnesium Oxide (Mag-Ox) 400 mg PO BID [facility] PRN Reason: Protocol Last Admin: 08/04/16 11:00 Dose: 400 mg Metoprolol Tartrate (Lopressor) 25 mg PO HS [facility] PRN Reason: Protocol Last Admin: 08/03/16 22:12 Dose: Not Given Nystatin/Triamcinolone Acetonide (Nystatin/Triamcinolone Cream) 0 ea TOP BID [facility] Last Admin: 08/04/16 11:00 Dose: 1 applic Ondansetron HCl (Zofran Inj) 4 mg IVP Q6H PRN; Protocol PRN Reason: Nausea/Vomiting Pantoprazole Sodium (Protonix Ec Tab) 40 mg PO 0630 [facility] PRN Reason: Protocol Last Admin: 08/04/16 06:35 Dose: 40 mg Paroxetine HCl (Paxil) 10 mg PO DAILY [facility] PRN Reason: Protocol Last Admin: 08/04/16 11:00 Dose: 10 mg Potassium Chloride (K-Dur 20 Meq Er Tab) 20 meq PO 0800 [facility] PRN Reason: Protocol Last Admin: 08/04/16 08:11 Dose: 20 meq Tramadol HCl (Ultram) 50 mg PO Q6H PRN; Protocol PRN Reason: Pain, moderate (4-7) Last Admin: 08/02/16 05:42 Dose: 50 mg - Labs Labs: 08/04/16 06:30 08/04/16 06:30 - Constitutional Appears: Non-toxic, No Acute Distress - Head Exam Head Exam: ATRAUMATIC - Respiratory Exam Respiratory Exam: Clear to Ausculation Bilateral, NORMAL BREATHING PATTERN - Cardiovascular Exam Cardiovascular Exam: REGULAR RHYTHM, +S1, +S2 - GI/Abdominal Exam GI & Abdominal Exam: Soft. absent: Distended, Firm, Guarding, Rigid, Tenderness , Rebound - Extremities Exam Additional comments: biopsy site is clean dry intact, stitch in place - Neurological Exam Neurological Exam: Alert, Awake - Skin Skin Exam: Dry, Intact, Normal Color, Warm Assessment and Plan - Assessment and Plan (Free Text) Assessment: 70F presents with dermatitis. No evidence residual Basal cell CA. Punch biopsy done - follow up pathology report Mycostatin TID Discussed with Dr. Adam Jenkins, PGY1
[2016-08-05] MEDS: Insulin Lispro (humaLOG) MEDIUM Coverage SC SCH ×2 (06:29→13:18)
[2016-08-05] MEDS: Pantoprazole 40 mg EC Tab PO SCH (06:30)
[2016-08-05] MEDS: Potassium Chloride 20 mEq ER Tab PO SCH (08:07)
[2016-08-05] MEDS: Magnesium Oxide 400 mg Tab UD PO SCH (09:29)
[2016-08-05] MEDS: Nystatin-Triamcinolone Cream(30 gm) TOP SCH (09:30)
[2016-08-05 11:23] VITALS: RESP 18
--- NOTE | 2016-08-05 12:35 | OP ---
PROCEDURE DATE: 08/03/2016 LOCATION: Room 320. SURGEON: Arian Medina MD ELECTRICAL MECHANICAL TECHNICIAN: ____ Henry. VP PURCHASING: Adam ANESTHESIA: Lidocaine 1% -- 6 mL. PREOPERATIVE DIAGNOSES: 1. Left leg lesion (5 x 5 cm) -- rule out dermatitis. 2. History of basal cell carcinoma -- same site. 3. Cerebrovascular accident. POSTOPERATIVE DIAGNOSES: 1. Left leg lesion (5 x 5 cm) -- rule out dermatitis. 2. History of basal cell carcinoma -- same site. 3. Cerebrovascular accident. PATHOLOGY: Pending, rule out moniliasis versus basal cell carcinoma. PROCEDURE: Skin biopsy (4 mm punch). Pursestring closure -- 4-0 nylon. OPERATIVE INDICATION: The patient is a 70-year-old female with a history of a basal cell c arcinoma in the left lower extremity, removed one year prior to this. She developed a large erythema tous eruption with papular formation at the same site and was treating it with bacitracin ointment. It is possible that the ointment has exacerbated the irritation and this reporting process consultant was asked to see the patient regarding the possibility of a recurrent basal cell. The lesion does have the appearance of a moniliasis -- fungal exacerbation, however. Discussion was held with the patient regarding confirmation of the diagnosis and she wholeheartedly a grees with the skin biopsy at this point. Risks, benefits and alternatives with their anticipated ou tcomes were fully discussed with the patient. OPERATIVE NOTE: The patient is in her bed in a semi-Núñez's position. The lower extremity is prepp ed with Betadine and the patient is aseptically draped. The area previously marked is now infiltrated with the local 1% lidocaine plain, raising the skin wit h a good skin wheal for hemostatic purposes. A 4 mm punch is utilized circumferentially removing the lesion and a tiny portion of adjacent normal looking tissue. The lesion is now removed with tweezers, placed in formalin and submitted to patholo gy for permanent section analysis. Compression is placed over the lesion and site; however, bleedin g continues and a pursestring suture of 4-0 nylon is utilized and hemostasis is then contained. A dr y dressing is placed over same. The surgical garment fitter was present throughout the entire procedure and was extremely helpful in provi ding the biopsy and the closure as described above. Arian Medina MD cc: [phone] TT: 08/05/2016 12:33:55 sn
--- NOTE | 2016-08-05 15:33 | DS ---
The patient is a 70-year-old, seen and examined, sitting in chair, seems to be comfortable. Does com plain of constipation. She is scheduled to be discharged today. However, the family wants her to be going to subacute rehab because she still is unable to go up stairs and they have stairs in their ho use. She denies any nausea or vomiting, states she is eating much better than before. She is partic ipating in therapy. PHYSICAL EXAMINATION: VITAL SIGNS: She is afebrile, pulse 72, respirations 18, blood pressure 107/68. LUNGS: Bilateral fair airflow, no rhonchi or crackle. HEART: S1, S2 audible. ABDOMEN: Soft, nontender, no rebound, no guarding. NEUROLOGIC: She is awake and alert, able to communicate. She has left hemiparesis and her left arm is hanging down. That needs to be supported by the sling. LABORATORY EXAMINATION: WBCs 5.3, hemoglobin 10, hematocrit 31, platelets 304. Chemistry: Sodium 1 37, potassium 4.4, chloride 103, CO2 25, BUN 29, creatinine 1.4, blood sugar of 105. ASSESSMENT: 1. Cerebrovascular accident, status post left hemiparesis. 2. Constipation. 3. Iron deficiency anemia. 4. Hyperlipidemia. 5. Depression. 6. Gastritis. PLAN: We will give 1 more dose of iron supplementation IV and continue her on current medical regime n. The patient initially refused to go to [facility]. However, she is agreeable now. Discussed with . They will . If she is accepted, she can be transferred to [facility] today. Maritza Adams MD cc: [phone] TT: 08/05/2016 15:33:25 en
[2016-08-05 15:57] VITALS: BP 103/62; PULSE 70; TEMP 97.3; O2SAT 95
--- NOTE | 2016-10-03 22:38 | PN ---
DATE: 08/01/2016 SUBJECTIVE: She is comfortable in bed, in no acute distress. She is able to ambulate with support. She has diabetes mellitus. Blood sugar controlled with current medications. She is complaining of fatigue. ALLERGIES: No known drug allergies. MEDICATIONS: Reviewed. PHYSICAL EXAMINATION: GENERAL: Comfortable in bed, in no acute distress, awake, alert, oriented. VITAL SIGNS: Temperature 98.8, heart rate is 75 per minute, blood pressure 130/70, respiratory rate 18 per minute. HEENT: Normal. CHEST: Air entry present, equal bilateral. No added sound. CARDIOVASCULAR: S1, S2 normal. No murmur, no gallop. ABDOMEN: Soft, nontender, no hepatosplenomegaly. EXTREMITIES: No edema. CENTRAL NERVOUS SYSTEM: Awake, alert, oriented. Left-sided hemiparesis. LABORATORIES: White count 6.7, hemoglobin 12.6, platelet count 200. Sodium 141, potassium 4, BUN 25 , creatinine 1.4. ASSESSMENT: 1. Generalized weakness. 2. Deconditioning. 3. Left-sided hemiparesis. 4. Anemia. 5. Iron deficiency. 6. Non-insulin dependent diabetes mellitus. PLAN: She is currently doing physical therapy. She is on Norvasc, will continue that. Currently on aspirin and Plavix, will continue that. Lipitor 40 mg daily. Cardiology following. Discussed with the staff nurse. Discussed with the patient. Vanessa Esposito MD cc: [id number] TT: 10/03/2016 22:37:51 Confirmation # [id number] Dictation # [id number] in
== END 2016-08-05 17:24 | DRG 945 ==
LOC: TRCU 21:34
PROVIDERS: ADMIT Internal Medicine; ATTEND Internal Medicine
PROC: F07Z9FZ Gait Training/Functional Ambulation Treatment using Assistive, Adaptive, Supportive or Protective Equipment (ICD-10-PCS; principal; 2016-07-29)
PROC: F08Z4FZ Home Management Treatment using Assistive, Adaptive, Supportive or Protective Equipment (ICD-10-PCS; 2016-07-29)
PROC: 0HBLXZX Excision of Left Lower Leg Skin, External Approach, Diagnostic (ICD-10-PCS; 2016-08-05)
DX: R53.1 Weakness (principal); I69.354 Hemiplegia and hemiparesis following cerebral infarction affecting left non-dominant side; E11.65 Type 2 diabetes mellitus with hyperglycemia; R26.2 Difficulty in walking, not elsewhere classified; I10 Essential (primary) hypertension; E78.5 Hyperlipidemia, unspecified; K29.70 Gastritis, unspecified, without bleeding; M19.90 Unspecified osteoarthritis, unspecified site; L30.9 Dermatitis, unspecified; K27.9 Peptic ulcer, site unspecified, unspecified as acute or chronic, without hemorrhage or perforation; F32.9 Major depressive disorder, single episode, unspecified; K59.00 Constipation, unspecified; D50.9 Iron deficiency anemia, unspecified; L90.5 Scar conditions and fibrosis of skin; Z79.84 Long term (current) use of oral hypoglycemic drugs; I25.2 Old myocardial infarction; Z85.828 Personal history of other malignant neoplasm of skin; Z87.891 Personal history of nicotine dependence

== ENCOUNTER 2016-09-16 10:51 | Observation (INO) | payer MEDICARE, OTHER ==
[2016-09-16 10:51] VITALS: BMI 25.0
[2016-09-16] MEDS ORDERED: Sodium Chloride 0.9% 1,000 ML IV STA ×2 (11:36→14:30)
[2016-09-16 12:06] LABS: HEMATOCRIT 27.2 % (36.0-48.0); MEAN CELL VOLUME 90.1 fL (80.0-105.0); MEAN CORPUSCULAR HEMOGLOBIN 29.1 pg (25.0-35.0); MEAN CORPUSCULAR HGB CONC 32.4 g/dl (31.0-37.0); MEAN PLATELET VOLUME 9.2 fl (7.0-11.0); RED CELL DISTRIBUTION WIDTH 14.2 % (11.5-14.5); WHITE BLOOD COUNT 6.8 10^3/ul (4.5-11.0)
[2016-09-16 12:22] LABS: ALB/GLOB RATIO 1.4 (1.1-1.8); ALKALINE PHOSPHATASE 60 U/L (38-133); ALT/SGPT 23 U/L (7-56); AST/SGOT 13 U/L (15-39); BILIRUBIN,TOTAL 0.3 mg/dL (0.2-1.3); BLOOD UREA NITROGEN 39 mg/dL (7-21); CALCIUM 9.2 mg/dL (8.4-10.5); CARBON DIOXIDE 25 mmol/L (21-33); CHLORIDE 106 mmol/L (98-107); GFR AFRICAN-AMERICAN 30; GLUCOSE,RANDOM 189 mg/dL (70-110); POTASSIUM 4.8 mmol/L (3.6-5.0); SODIUM 138 mmol/L (132-148); TOTAL PROTEIN 6.4 g/dL (5.8-8.3)
[2016-09-16 14:00] LABS: TROPONIN I < 0.01 ng/mL
--- NOTE | 2016-09-16 14:37 | ED PDOC ---
Arrival/HPI <Rosio Jones Y - Last Filed: 09/16/16 14:50> - General Historian: Patient, Family - History of Present Illness Time/Duration: 1-3 hours Symptom Onset: Sudden Symptom Course: Unchanged Quality: Other (no pain) Severity Level: 1 Activities at Onset: Rest Context: Sitting, Other (at a graduation) <Marisa Carcamo - Last Filed: 09/16/16 15:54> - General Chief Complaint: Dizziness/Lightheaded Time Seen by Provider: 09/16/16 11:01 - History of Present Illness Narrative History of Present Illness (Text): 09/16/16 15:05 This is a 70Y F with PMH CVA with residual L sided deficit, vertigo, HLD, HTN here for dizziness with nausea and vomiting x 1 hour. The patient is currently at [facility] for rehabilitation. She was released for the day to attend a graduation. During the graduation she became dizzy and started having nausea and vomiting. The last time she had this was 2 weeks ago. She denies abdominal pain, CP, SOB, diarrhea, numbness/tingling, vision changes, dysuria or hematuria. (Marisa Carcamo) Past Medical History - Provider Review Nursing Documentation Reviewed: Yes - Cardiac Hx Hypertension: Yes - Pulmonary Hx Respiratory Disorders: No - Neurological HX Cerebrovascular Accident: Yes (10/2015; L hemiparesis) - HEENT Hx HEENT Disorder: No - Renal Hx Renal Disorder: No - Endocrine/Metabolic Hx Diabetes Mellitus Type 2: Yes - Hematological/Oncological Hx Blood Disorders: No - Integumentary Hx Dermatological Disorder: Yes Other/Comment: old bruises b/l knees, lle dry skin/ ble skin discolored - Musculoskeletal/Rheumatological Hx Falls: Yes (1 week ago) - Gastrointestinal Hx Gastrointestinal Disorders: No - Genitourinary/Gynecological Hx Genitourinary Disorders: No (uses commode with assist) - Psychiatric Hx Substance Use: No - Surgical History Hx Cholecystectomy: Yes Other/Comment: carotid <Marisa Carcamo - Last Filed: 09/16/16 15:54> Family/Social History - Physician Review Nursing Documentation Reviewed: Yes Family/Social History: Hypertension Smoking Status: Former Smoker Hx Alcohol Use: No Hx Substance Use: No <Marisa Carcamo - Last Filed: 09/16/16 15:54> Allergies/Home Meds <Rosio Jones - Last Filed: 09/16/16 14:50> <JessicajudeMarisa - Last Filed: 09/16/16 15:54> Allergies/Adverse Reactions: Allergies No Known Allergies Allergy (Verified 07/28/16 22:15) Home Medications: Home Meds Medication Instructions Recorded Confirmed Metformin HCl [Metformin HCl ER] 1,000 mg PO BID 11/19/15 07/28/16 Aspirin [Aspirin Chewable] 81 mg PO DAILY 07/22/16 07/28/16 Atorvastatin [Lipitor] 40 mg PO DAILY 07/22/16 07/28/16 FLUoxetine [Prozac] 20 mg PO DAILY 07/22/16 07/28/16 Insulin Glargine, Recombina 10 units SC HS 07/22/16 07/28/16 [Lantus] Iron Pill 1 tab PO DAILY 07/22/16 07/28/16 Lisinopril [Zestril] 20 mg PO DAILY 07/22/16 07/28/16 Metoprolol Tartrate [Lopressor] 25 mg PO HS 07/22/16 07/22/16 traMADol [Ultram] 50 mg PO BID PRN 07/22/16 07/28/16 Review of Systems - Physician Review All systems were reviewed & negative as marked: Yes - Review of Systems Constitutional: Normal. absent: Fevers Eyes: Normal. absent: Vision Changes ENT: Normal. absent: Hearing Changes Respiratory: Normal. absent: SOB Cardiovascular: Normal. absent: Chest Pain Gastrointestinal: Nausea, Vomiting. absent: Abdominal Pain, Stool Changes, Diarrhea Genitourinary Female: Normal. absent: Dysuria, Frequency, Hematuria Musculoskeletal: Normal Skin: Normal Neurological: Dizziness. absent: Headache, Focal Weakness, Seizure Endocrine: Normal. absent: Diaphoresis, Polyuria Hemo/Lymphatic: Normal. absent: Easy Bleeding, Easy Bruising Psychiatric: Normal. absent: Anxiety, Depression <Marisa Carcamo - Last Filed: 09/16/16 15:54> Physical Exam Vital Signs Reviewed: Yes Temperature: Afebrile Blood Pressure: Normal Pulse: Regular Respiratory Rate: Normal Appearance: Positive for: Well-Appearing, Non-Toxic, Comfortable Pain Distress: None Mental Status: Positive for: Alert and Oriented X 3 - Systems Exam Head: Present: Atraumatic, Normocephalic Pupils: Present: PERRL Extroacular Muscles: Present: EOMI Conjunctiva: Present: Normal Mouth: Present: Moist Mucous Membranes Neck: Present: Normal Range of Motion Respiratory/Chest: Present: Clear to Auscultation, Good Air Exchange. No: Respiratory Distress, Accessory Muscle Use Cardiovascular: Present: Regular Rate and Rhythm, Normal S1, S2. No: Murmurs Abdomen: Present: Normal Bowel Sounds. No: Tenderness, Distention, Peritoneal Signs, Rebound, Guarding Back: Present: Normal Inspection Upper Extremity: Present: Normal Inspection. No: Cyanosis, Edema Lower Extremity: Present: Normal Inspection. No: Edema Neurological: Present: GCS=15, CN II-XII Intact, Speech Normal, Other (L sided neuro deficit, decreased strength and sensation of L upper extremity ) Skin: Present: Warm, Dry, Normal Color. No: Rashes Psychiatric: Present: Alert, Oriented x 3, Normal Insight, Normal Concentration <Marisa Carcamo - Last Filed: 09/16/16 15:54> Medical Decision Making <Rosio Jones - Last Filed: 09/16/16 14:50> Re-evaluation Time: 15:32 - Lab Interpretations I have reviewed the lab results: Yes Interpretation: Abnormal lab values (Anemia and Cr increased) - RAD Interpretation Fast Food Manager: Radiologist - EKG Interpretation Interpreted by ED Physician: Yes Type: 12 lead EKG Comparison: Similar to previous EKG <Marisa Carcamo - Last Filed: 09/16/16 15:54> ED Course and Treatment: Patient Seen With Resident: In agreement with resident note which contains more details about the patient. Patient was seen and evaluated with resident. Came up with plan and treatment together. (Rosio Jones) 09/16/16 15:00 Impression: This is a 70Y F with PMH of CVA with residual L sided deficit, Differential Diagnosis: -- Vertigo -- r/o CVA Plan: -- CBC, CMP, U/A -- EKG -- Head CT -- IV fluids, Zofran -- Reassess and disposition Prior Visits: Notes and results from previous visits were reviewed. Progress Note: Patient continues to feel dizzy and vomit. Meclizine given. Patient is now resting in bed. 09/16/16 15:[address] Adams who saw the patient. Dr. Adams is aware of the lab work and will accept patient into her service. Spoke with patient and family who are at bedside. They are aware and agree with the plan to admit patient for further observation. 09/16/16 15:32 Patient does not have any more dizziness or nausea. She now has a headache. Tylenol ordered. Head CT noted to be negative. 09/16/16 15:54 (Marisa Carcamo) - Lab Interpretations Lab Results: 09/16/16 11:40 09/16/16 11:40 Lab Results 09/16/16 15:30: Urine Color Straw, Urine Appearance Clear, Urine pH 7.5, Ur Specific [place] 1.015, Urine Protein Negative, Urine Glucose (UA) Negative, Urine Ketones Negative, Urine Blood Negative, Urine Nitrate Negative, Urine Bilirubin Negative, Urine Urobilinogen 0.2, Ur Leukocyte Esterase Negative 09/16/16 11:40: Sodium 138, Potassium 4.8, Chloride 106, Carbon Dioxide 25, Anion Gap 12, BUN 39 H, Creatinine 2.0 H, Est GFR ( Amer) 30, Est GFR ( Non-Af Amer) 25, Random Glucose 189 H, Calcium 9.2, Total Bilirubin 0.3, AST 13 L, ALT 23, Alkaline Phosphatase 60, Lactate Dehydrogenase 434, Total Creatine Kinase 31 L, Troponin I < 0.01 D, Total Protein 6.4, Albumin 3.7, Globulin 2.7 , Albumin/Globulin Ratio 1.4 09/16/16 11:40: WBC 6.8 D, RBC 3.02 L, Hgb 8.8 L, Hct 27.2 L, MCV 90.1, MCH 29.1, MCHC 32.4, RDW 14.2, Plt Count 278, MPV 9.2 - RAD Interpretation Narrative RAD Interpretations (Text): 09/16/16 15:33 CT head showed chronic microvascular changes, but no acute process seen. Please see full report for more detail. (Marisa Carcamo) Radiology Orders: 09/16/16 14:14 HEAD W/O CONTRAST [CT] Stat - EKG Interpretation EKG Interpretation (Text): 09/16/16 15:13 Hr 83. Qtc Prolonged. Other intervals within normal limits. RBBB. NSR. ( Marisa Carcamo) - Medication Orders Current Medication Orders: Sodium Chloride (Sodium Chloride 0.9%) 1,000 mls @ 100 mls/hr IV .Q10H STA Stop: 09/17/16 00:29 Discontinued Medications Acetaminophen (Tylenol 325mg Tab) 650 mg PO STAT STA Stop: 09/16/16 15:31 Sodium Chloride (Sodium Chloride 0.9%) 1,000 mls @ 999 mls/hr IV .Q1H1M STA Stop: 09/16/16 12:36 Meclizine HCl (Antivert) 25 mg PO STAT STA Stop: 09/16/16 11:37 Ondansetron HCl (Zofran Inj) 4 mg IVP STAT STA Stop: 09/16/16 11:37 - Scribe Statement The provider has reviewed the documentation as recorded by the Scribe <Rosio Jones - Last Filed: 09/16/16 14:50> <Marisa Carcamo - Last Filed: 09/16/16 15:54> - Scribe Statement Brarett Vidal Provider Scribe Attestation: All medical record entries made by the Scribe were at my direction and personally dictated by me. I have reviewed the chart and agree that the record accurately reflects my personal performance of the history, physical exam, medical decision making, and the department course for this patient. I have also personally directed, reviewed, and agree with the discharge instructions and disposition. (Rosio Jones) Disposition/Present on Arrival <Rosio Jones - Last Filed: 09/16/16 14:50> - Present on Arrival Any Indicators Present on Arrival: No History of DVT/PE: No History of Uncontrolled Diabetes: No Urinary Catheter: No History Surgical Site Infection Following: None - Disposition Have Diagnosis and Disposition been Completed?: Yes Disposition Time: 15:32 Patient Plan: Admission <Marisa Carcamo - Last Filed: 09/16/16 15:54> - Disposition Diagnosis: DAMION (acute kidney injury), Vertigo Disposition: HOSPITALIZED Patient Problems: Current Active Problems Problem Status Onset DAMION (acute kidney injury) Acute Vertigo Acute Condition: FAIR Print Language: AZERI Referrals: Maritza Adams MD [Primary Care Provider] - Follow up with primary
--- NOTE | 2016-09-16 15:24 | CT ---
PROCEDURE: CT HEAD WITHOUT CONTRAST. HISTORY: DIZZY COMPARISON: 11/19/2015 TECHNIQUE: Axial computed tomography images were obtained through the head/brain without intravenous contrast. Radiation dose: Total exam DLP = 689 mGy-cm. This CT exam was performed using one or more of the following dose reduction techniques: Automated exposure control, adjustment of the mA and/or kV according to patient size, and/or use of iterative reconstruction technique. FINDINGS: HEMORRHAGE: No intracranial hemorrhage. BRAIN: No mass effect or edema. Chronic infarcts are seen in the right basal ganglia and park radiata as well as the deep white matter of the right posterior frontal lobe. Microvascular changes are also seen in the stephen. VENTRICLES: Unremarkable. No hydrocephalus. CALVARIUM: Unremarkable. PARANASAL SINUSES: Unremarkable as visualized. No significant inflammatory changes. MASTOID AIR CELLS: Unremarkable as visualized. No inflammatory changes. OTHER FINDINGS: None. IMPRESSION: Chronic infarcts in the right basal ganglia and park radiata. No acute intracranial findings
[2016-09-16 15:52] LABS: PH,URINE 7.5 (4.7-8.0); URINE BILIRUBIN NEGATIVE (NEGATIVE); URINE BLOOD NEGATIVE (NEGATIVE); URINE GLUCOSE (UA) NEGATIVE (NEGATIVE); URINE KETONE NEGATIVE (NEGATIVE); URINE LEUKOCYTE ESTERASE NEGATIVE Leu/uL (NEGATIVE); URINE PROTEIN NEGATIVE mg/dL (<30 mg/dL); URINE UROBILINOGEN 0.2 E.U./dL (<1 E.U./dL)
[2016-09-16 15:53] LABS: URINE APPEARANCE CLEAR (CLEAR); URINE COLOR STRAW (YELLOW)
--- NOTE | 2016-09-16 19:29 | HP ---
HISTORY OF PRESENT ILLNESS: The patient is a 70-year-old who was recently admitted in June after sh e had a stroke with left-sided weakness and she stopped eating at that point and she was given PPI, Z ofran, and IV fluid. She started to improve, but she needed rehab, so she was sent to [place] on 07/24 and since then she has been in [facility] and was receiving physical therapy. Yesterday when I went to see patient in [facility], she requested to get a pass to see her grandnephew's graduation. The p simran does have a history of motion sickness. She was given meclizine and Zofran prior to departing [place] but during the graduation event, the patient started to feel dizzy, lightheaded and she was brought to Emergency Room. She was found to be hypotensive and anemic. So she is being admitted. S he is being placed in observation. SIGNIFICANT PAST MEDICAL HISTORY: 1. Hypertension. 2. Borderline diabetes. 3. History of cerebrovascular accident, status post left hemiparesis. 4. Peptic ulcer disease. 5. History of smoking in the past. 6. Hyperlipidemia. 7. Gastritis. ALLERGIES: She is not allergic to any medications. MEDICATIONS AT HOME: She is on lisinopril 20 mg daily, Prozac 20 mg daily, Lipitor 40 mg daily, aspi rin 81 daily, tramadol 50 mg 3 times a day, amlodipine 5 mg daily, potassium 20 mEq daily, Protonix 4 0 daily, Paxil 10 mg daily, metoprolol 25 at bedtime, metformin 1000 twice a day. SOCIAL HISTORY: She lives with her sister. History of heavy smoking in the past, but quit since she had stroke. REVIEW OF SYSTEMS: Significant for feeling weak, tired and lightheaded. PHYSICAL EXAMINATION: GENERAL: She is awake and alert, communicative. VITAL SIGNS: She is afebrile, pulse 84, respirations 18, blood pressure 115/82. LUNGS: Bilateral fair airflow, no rhonchi or crackle. HEART: S1, S2 audible. No murmur. ABDOMEN: Soft, nontender, no rebound, no guarding. NEUROLOGIC: The patient is awake and alert, communicative with left hemiparesis. LABORATORY DATA: WBC 6.8, hemoglobin 8.8, hematocrit ____ 278. Chemistry: Sodium 138, potassium 4. 8, chloride 106, CO2 25, BUN 39, creatinine 2.0, blood sugar 189, AST 13, ALT 23. LFTs otherwise are normal limits. Urinalysis is unremarkable. She had CT of the head done that is negative for any ac claudia CVA. CT scan of the brain shows chronic infarct in the right basal ganglia and park radiata, n o acute intracranial finding. ASSESSMENT: 1. Motion sickness leading to nausea and dizziness. 2. Dehydration. 3. Chronic anemia. 4. History of hypertension. 5. Hyperlipidemia. PLAN: The patient is going to be placed in observation. We will give her IV fluid and monitor CBC a nd CMP in a.m. If patient remains stable, will have early discharge. Will resume her medication as prior to admission. Maritza Adams MD cc: [phone] TT: 09/16/2016 19:28:09 jn
[2016-09-16 21:03] VITALS: RESP 18
[2016-09-16] MEDS ORDERED: Pneumococcal 23-Valent Vaccine IM ONE (21:04)
[2016-09-16] MEDS ORDERED: INSULIN GLARGINE RECOMBINA 10 UNIT SC SCH (22:00)
[2016-09-16] MEDS: Insulin Detemir 100 units/ml Vial (Levemir) SC SCH (23:50)
[2016-09-17] MEDS ORDERED: Pantoprazole 40 mg EC Tab PO SCH (06:30)
[2016-09-17 07:54] LABS: ADD MANUAL DIFF? NO
[2016-09-17 07:57] LABS: BASO # 0.03 K/mm3 (0.0-2.0); BASO % 0.7 % (0.0-3.0); EOS # 0.1 (0.0-0.7); EOS % 2.5 % (1.5-5.0); GRAN # 2.29 (1.4-6.5); GRAN % 51.3 % (50.0-68.0); HEMATOCRIT 25.1 % (36.0-48.0); LYMPH # 1.8 (1.2-3.4); LYMPH % 39.7 % (22.0-35.0); MEAN CELL VOLUME 90.3 fL (80.0-105.0); MEAN CORPUSCULAR HEMOGLOBIN 29.1 pg (25.0-35.0); MEAN CORPUSCULAR HGB CONC 32.3 g/dl (31.0-37.0); MEAN PLATELET VOLUME 9.1 fl (7.0-11.0); MONO # 0.3 (0.1-0.6); MONO % 5.8 % (1.0-6.0); PLATELET COUNT 216 10^3/uL (120.0-450.0); RED CELL DISTRIBUTION WIDTH 14.2 % (11.5-14.5); WHITE BLOOD COUNT 4.5 10^3/ul (4.5-11.0)
[2016-09-17 08:09] LABS: ALB/GLOB RATIO 1.2 (1.1-1.8); BILIRUBIN,TOTAL 0.3 mg/dL (0.2-1.3); CALCIUM 9.1 mg/dL (8.4-10.5); MAGNESIUM 2.2 mg/dL (1.7-2.2); POTASSIUM 4.7 mmol/L (3.6-5.0); TOTAL PROTEIN 5.9 g/dL (5.8-8.3)
[2016-09-17] MEDS: Sodium Chloride 0.45% 1,000 ML IV SCH ×2 (08:17→14:10)
[2016-09-17 08:19] VITALS: BP 121/70; PULSE 78; TEMP 98.2; O2SAT 97
[2016-09-17] MEDS: Insulin Detemir 100 units/ml Vial (Levemir) SC SCH (10:16)
[2016-09-17 10:44] LABS: IRON 67 ug/dL (45-180)
--- NOTE | 2016-09-17 15:23 | CARD ---
APPROVED REPORT EKG Measurement Heart [id number] <Conclusion> Normal sinus rhythm Right bundle branch block Inferior infarct, age undetermined Abnormal ECG
[2016-09-17 17:37] LABS: FOLATE 5.6 ng/mL
--- NOTE | 2016-09-17 23:02 | DS ---
The patient is a 70-year-old who was admitted yesterday after she had motion sickness when she went t o attend her nephew's graduation libertarian. She was brought to hospital. She had CT scan of the brain d one, no new infarct noted. She was hypotensive and with dehydration, her creatinine is usually runs 1.5, but it went up to 2. She was given hydration, meclizine and Zofran. She started to do well. S he was found to be a little anemic, was being given 1 dose of IV Venofer. PHYSICAL EXAMINATION: GENERAL: She looks much better, sitting in chair, comfortable. VITAL SIGNS: She is afebrile, pulse ____, respirations 18, blood pressure 121/70. LUNGS: Bilateral fair airflow, no rhonchi or crackle. HEART: S1, S2 audible. ABDOMEN: Soft, nontender, no rebound, no guarding. NEUROLOGIC: She is awake and alert, communicative. EXTREMITIES: Left hemiparesis. Upper extremities weaker than the lower extremities. LABORATORY DATA: WBC is 4.5, hemoglobin 8.1, hematocrit 25, platelet 216. Chemistry: Sodium 140, p otassium 4.7, chloride 109, CO2 26, BUN 33, creatinine 1.9, blood sugar of 84. Urinalysis is unremar kable. ASSESSMENT: 1. Status post syncope. 2. Acute renal failure secondary to dehydration. 3. Peptic ulcer disease. 4. History of cerebrovascular accident with left hemiparesis. 5. Noninsulin-dependent diabetes. PLAN: The patient is being given Venofer today. She will be sent back to [place] where she is getti ng her subacute rehab. She will be given meclizine and Zofran prior to departure and I will follow h er up there. I will do anemia workup in the [facility]. Maritza Adams MD cc: [phone] TT: 09/17/2016 23:02:26 jn
== END 2016-09-17 17:13 ==
LOC: ED 10:51 → ERH 15:34 → 5RSO 20:59
PROVIDERS: ADMIT Internal Medicine; ATTEND Internal Medicine
DX: R55 Syncope and collapse (principal); N17.9 Acute kidney failure, unspecified; E86.0 Dehydration; K27.9 Peptic ulcer, site unspecified, unspecified as acute or chronic, without hemorrhage or perforation; E11.9 Type 2 diabetes mellitus without complications; R42 Dizziness and giddiness; I69.354 Hemiplegia and hemiparesis following cerebral infarction affecting left non-dominant side; D64.9 Anemia, unspecified; Z79.82 Long term (current) use of aspirin; K29.70 Gastritis, unspecified, without bleeding; E78.5 Hyperlipidemia, unspecified; I10 Essential (primary) hypertension; T75.3XXA Motion sickness, initial encounter; Z79.4 Long term (current) use of insulin; Z87.891 Personal history of nicotine dependence
CPT/HCPCS: 36415; 70450; 80053; 81003; 82550; 82607; 82728; 82746; 82948; 83540; 83550; 83615; 83735; 84484; 85025; 85027; 87086; 93005; 99281; G0378; J1756; J2405

== ENCOUNTER 2018-06-12 20:28 | Inpatient (IN) | payer MEDICARE, OTHER ==
--- NOTE | 2018-06-12 21:04 | ED PDOC ---
Arrival/HPI - General Chief Complaint: GI Problem Time Seen by Provider: 06/12/18 20:49 Historian: Patient - History of Present Illness Narrative History of Present Illness (Text): 06/12/18 21:01 72 year old female, whose past medical history includes CVA, presents to the emergency department with nausea, vomiting, and diarrhea. Patient stats she believes symptoms started today. 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 Patient denies any fever, chills, headache, dizziness, chest pain, shortness of breath, cough, abdominal pain, back pain, neck pain, or any other complaint. Time/Duration: 24 hours Symptom Onset: Gradual Symptom Course: Unchanged Activities at Onset: Light Context: Home Past Medical History - Provider Review Nursing Documentation Reviewed: Yes - Cardiac Hx Hypertension: Yes - Pulmonary Hx Respiratory Disorders: No - Neurological HX Cerebrovascular Accident: Yes (10/2015; L hemiparesis) Other/Comment: motion sickness - HEENT Hx HEENT Disorder: No - Renal Hx Renal Disorder: No - Endocrine/Metabolic Hx Diabetes Mellitus Type 2: Yes - Hematological/Oncological Hx Blood Disorders: No - Integumentary Hx Dermatological Disorder: Yes Hx Basal Cell Carcinoma: Yes (lle) Other/Comment: old bruises b/l knees, lle dry skin/ ble skin discolored,reddened buttocks, inner r ankle/foot area flat red rash pt has had it for 20 yrs, round red area 2cm round to mid back, lle red area of skin 1cm round, hx basal cell skin ca removed by dr arceo 1 yr ago and biopsy, tatoo left chest - Musculoskeletal/Rheumatological Hx Falls: Yes - Gastrointestinal Hx Gastrointestinal Disorders: No - Genitourinary/Gynecological Hx Genitourinary Disorders: (uses commode with assist) Hx Incontinence: Yes (at night) - Psychiatric Hx Psychophysiologic Disorder: No Hx Anxiety: No Hx Substance Use: No - Surgical History Hx Cholecystectomy: Yes Other/Comment: carotid Family/Social History - Physician Review Nursing Documentation Reviewed: Yes Family/Social History: No Known Family HX Smoking Status: Never Smoked Hx Alcohol Use: No Hx Substance Use: No Allergies/Home Meds Allergies/Adverse Reactions: Allergies No Known Allergies Allergy (Verified 06/12/18 20:44) Home Medications: Home Meds Medication Instructions Recorded Confirmed RX: Metformin HCl [Metformin HCl 1,000 mg PO BID 11/19/15 06/12/18 ER] RX: Aspirin [Aspirin Chewable] 81 mg PO DAILY 07/22/16 06/12/18 RX: Atorvastatin [Lipitor] 40 mg PO DAILY 07/22/16 06/12/18 RX: FLUoxetine [Prozac] 20 mg PO DAILY 07/22/16 06/12/18 RX: Insulin Glargine, Recombina 10 units SC HS 07/22/16 06/12/18 [Lantus] RX: Lisinopril [Zestril] 20 mg PO DAILY 07/22/16 06/12/18 RX: traMADol [Ultram] 50 mg PO BID PRN 07/22/16 06/12/18 Review of Systems - Physician Review All systems were reviewed & negative as marked: Yes - Review of Systems Constitutional: absent: Fevers, Night Sweats Respiratory: absent: SOB, Cough Cardiovascular: absent: Chest Pain Gastrointestinal: Diarrhea, Nausea, Vomiting. absent: Abdominal Pain Musculoskeletal: absent: Back Pain, Neck Pain Neurological: absent: Headache, Dizziness Physical Exam - Physical Exam Narrative Physical Exam (Text): 06/12/18 21:52 Gen: VS reviewed, alert, well developed, disheveled and covered in feces. ENT: normal pharynx. Eye: EOMI, PERRL. Neck: no JVD, supple, no adenopathy. CV: regular rate, regular rhythm, no rubs, no murmur, no gallops, S1, S2, pulses equal and strong. Pulm: no distress, clear to auscultation, no wheeze, no rhonchi, breath sounds equal, no rales. Abd: soft, nontender, no guarding, no rebound, no rigidity, normal bowel sounds. Ext: no edema. Skin: good color, no rash, no cyanosis. Psych: responds appropriately to questions, normal affect. Neuro: oriented x 3, CN2-12, paresis to the left upper extremity. Vital Signs Reviewed: Yes Temperature: Afebrile Blood Pressure: Normal Pulse: Regular Respiratory Rate: Normal Appearance: Positive for: Well-Appearing, Non-Toxic, Unkept (desheveled) Pain Distress: None Mental Status: Positive for: Alert and Oriented X 3 - Systems Exam Head: Present: Atraumatic, Normocephalic Pupils: Present: PERRL Extroacular Muscles: Present: EOMI Conjunctiva: Present: Normal Mouth: Present: Moist Mucous Membranes Neck: Present: Normal Range of Motion Respiratory/Chest: Present: Clear to Auscultation, Good Air Exchange. No: Respiratory Distress, Accessory Muscle Use Cardiovascular: Present: Regular Rate and Rhythm, Normal S1, S2. No: Murmurs Abdomen: No: Tenderness, Distention, Peritoneal Signs Back: Present: Normal Inspection Upper Extremity: Present: Normal Inspection. No: Cyanosis, Edema Lower Extremity: Present: Normal Inspection. No: Edema Neurological: Present: GCS=15, CN II-XII Intact, Speech Normal Skin: Present: Warm, Dry, Normal Color. No: Rashes Psychiatric: Present: Alert, Oriented x 3, Normal Insight, Normal Concentration Medical Decision Making ED Course and Treatment: 06/12/18 21:07 Impression:72 year old female presents with nausea vomiting diarrhea. Plan: -- VBG -- EKG -- CMP, Mg -- CBC -- Zofran -- Reassess and disposition Prior Visits: Notes and results from previous visits were reviewed. Progress Notes: 06/12/18 22:[address] lopez. patient to be admitted for acute vomiting and diarrhea. patient found to be severely hyperglycemic and associated bloodwork appears to be consistent with DKA.There is still a pending urine to eval for ketones in urine. i will get a Ct of the head to rule out an overt intracranial lesion as there appears to be a disconnect with the patient telling she does not know what the brown dried appearing liquid is on her legs. As per dr. lopez, i have been informed that the patient's family members have told her that the patient does not take care of herself at home. 06/12/18 22:52 case discussed with , covering ICU, will see patient in consult for admission/disposition planning 06/12/18 22:54 06/12/18 23:23 admit accepted to the ICU by dr. godinez - RAD Interpretation Narrative RAD Interpretations (Text): 06/12/18 23:18 cxr my read: no focal infiltrate, no ptx, no wide mediastinum 06/13/18 00:40 CT Head without Intravenous Contrast. CLINICAL HISTORY: Altered mentation TECHNIQUE: Axial computed tomography images of the head/brain without intravenous contrast. 833.04 mGy-cm COMPARISON: CT\SD\SR - HEAD W/O CONTRAST - 09/16/2016 01:46 PM EDT FINDINGS: BRAIN There is encephalomalacia at the right subinsular region, right thalamus and right basal ganglia. There is additional encephalomalacia in the right frontal region. A small amount of additional encephalomalacia at the right parietal watershed region. These are compatible with old infarctions. These were also present on the prior study dated September 16, 2016 and appear little changed. There is mild to moderate subcortical, deep and periventricular white matter hypodensity bilaterally, compatible with microangiopathy. This is increased from 2017. No evidence for acute intracranial hemorrhage. VENTRICLES: Mild prominence of ventricles and sulci compatible mild atrophy. This has increased since 2017. ORBITS: The orbits are unremarkable. SINUSES AND MASTOIDS: The paranasal sinuses and mastoid air cells are clear. BONES: No displaced calvarial fracture. SOFT TISSUES: Unremarkable. MISCELLANEOUS: No definite evidence for acute territorial infarction. IMPRESSION: 1. There is encephalomalacia at the right subinsular region, right thalamus and right basal ganglia. There is additional encephalomalacia in the right frontal region. A small amount of additional encephalomalacia at the right parietal watershed region. These are compatible with old infarctions. These were also present on the prior study dated September 16, 2016 and appear little changed. 2. There is mild to moderate subcortical, deep and periventricular white matter hypodensity bilaterally, compatible with microangiopathy. This is increased from 2017. 3. No definite evidence for acute territorial infarction. 4. No evidence for acute intracranial hemorrhage. 5. No displaced calvarial fracture. 6. Mild prominence of ventricles and sulci compatible mild atrophy. This has increased since 2017. Infectious Disease Physician: ED Physician, Radiologist - EKG Interpretation EKG Interpretation (Text): 06/13/18 00:52 0043: ekg my read: nsr at 96 bpm, irbbb, inferior infarct, artifact, lateral infarct, nonspecific t wave abn Interpreted by ED Physician: Yes - Medication Orders Current Medication Orders: Sodium Chloride (Sodium Chloride 0.9%) 1,000 mls @ 150 mls/hr IV .[id number] CLAUDY Discontinued Medications Ondansetron HCl (Zofran Inj) 4 mg IVP STAT STA Stop: 06/12/18 20:50 - Scribe Statement The provider has reviewed the documentation as recorded by the Chiquiibe Shane Lee Provider Scribe Attestation: All medical record entries made by the Scribe were at my direction and personally dictated by me. I have reviewed the chart and agree that the record accurately reflects my personal performance of the history, physical exam, [facility] decision making, and the department course for this patient. I have also personally directed, reviewed, and agree with the discharge instructions and disposition. Disposition/Present on Arrival - Present on Arrival Any Indicators Present on Arrival: No History of DVT/PE: No History of Uncontrolled Diabetes: No Urinary Catheter: No History of Decub. Ulcer: No History Surgical Site Infection Following: None - Disposition Have Diagnosis and Disposition been Completed?: Yes Diagnosis: Diabetic ketoacidosis Disposition: HOSPITALIZED Disposition Time: 00:10 (not acutal time) Patient Plan: Admission Condition: STABLE
[2018-06-12] MEDS: Sodium Chloride 0.9% 1,000 ML IV SCH (21:50)
[2018-06-12 22:12] LABS: BASO # 0.01 K/mm3 (0.0-2.0); BASO % 0.1 % (0.0-3.0); EOS % 0.1 % (1.5-5.0); HEMOGLOBIN 12.9 g/dL (12.0-16.0); LYMPH # 0.6 (1.2-3.4); LYMPH % 4.2 % (22.0-35.0); MEAN CELL VOLUME 84.7 fl (80.0-105.0); MEAN CORPUSCULAR HGB CONC 31.9 g/dl (31.0-37.0); MEAN PLATELET VOLUME 10.2 fl (7.0-11.0); MONO # 0.5 (0.1-0.6); MONO % 3.6 % (1.0-6.0); PLATELET COUNT 324 10^3/uL (120.0-450.0); RBC 4.77 10^6/uL (3.5-6.1); RED CELL DISTRIBUTION WIDTH 13.7 % (11.5-14.5); WHITE BLOOD COUNT 13.7 10^3/uL (4.5-11.0)
[2018-06-12 22:14] LABS: ALB/GLOB RATIO 1.4 (1.1-1.8); ALBUMIN 4.1 g/dL (3.0-4.8); CALCIUM 9.6 mg/dL (8.4-10.5)
[2018-06-12 22:22] LABS: VENOUS BLOOD GAS PO2 50 mm/Hg (30-55); VENOUS BLOOD PH 7.24 (7.32-7.43)
[2018-06-12] MEDS ORDERED: Insulin Regular 100 UNITS in Sodium Chloride 0.9% 99 ML IV PRN (22:38)
[2018-06-12] MEDS ORDERED: Insulin Regular 1 UNITS/0.01 ML ML IVP STA (22:38)
[2018-06-12] MEDS ORDERED: Sodium Chloride 0.9% 1,000 ML IV STA ×4 (22:39)
--- NOTE | 2018-06-12 22:58 | CP.PCM.CON ---
<Ben Rico - Last Filed: 06/13/18 01:35> History of Present Illness - History of Present Illness History of Present Illness: Ben Rico PGY2 ICU Consult Note Reason for consult: possible DKA Ms. 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 The patient states that her abdominal pain is mainly in the epigastric/hypogastric region and is non-radiating; it is relieved w/ the vomitus. She denies any fevers/chills. Patient states that she was previously on insulin but has not been lately. ICU consulted for possible DKA. Patient was evaluated and seems more comfortable at this time. Patient was started on insulin drip in the ED. 12-pt ROS was reviewed and is otherwise unremarkable. PMD: Dr. Adams PSH: skin biopsy, cholecystectomy Meds: as Per MAR Allergies: NKDA SHx: former smoker FHx: noncontributory Review of Systems - Review of Systems All systems: reviewed and no additional remarkable complaints except (as per HPI) Past Patient History - Past Social History Smoking Status: Never Smoked - CARDIAC Hx Hypertension: Yes - PULMONARY Hx Respiratory Disorders: No - NEUROLOGICAL HX Cerebrovascular Accident: Yes (10/2015; L hemiparesis) Other/Comment: motion sickness - HEENT Hx HEENT Problems: No - RENAL Hx Chronic Kidney Disease: No - ENDOCRINE/METABOLIC Hx Diabetes Mellitus Type 2: Yes - HEMATOLOGICAL/ONCOLOGICAL Hx Blood Disorders: No - INTEGUMENTARY Hx Dermatological Problems: Yes Hx Basil Cell: Yes (lle) Other/Comment: old bruises b/l knees, lle dry skin/ ble skin discolored,reddened buttocks, inner r ankle/foot area flat red rash pt has had it for 20 yrs, round red area 2cm round to mid back, lle red area of skin 1cm round, hx basal cell skin ca removed by dr arceo 1 yr ago and biopsy, tatoo left chest - MUSCULOSKELETAL/RHEUMATOLOGICAL Hx Falls: Yes - GASTROINTESTINAL Hx Gastrointestinal Disorders: No - GENITOURINARY/GYNECOLOGICAL Hx Genitourinary Disorders: (uses commode with assist) Hx Incontinence: Yes (at night) - PSYCHIATRIC Hx Psychophysiologic Disorder: No Hx Anxiety: No Hx Substance Use: No - SURGICAL HISTORY Hx Cholecystectomy: Yes Other/Comment: carotid Meds Allergies/Adverse Reactions: Allergies Allergy/AdvReac Type Severity Reaction Status Date / Time No Known Allergies Allergy Verified 06/12/18 20:44 - Medications Medications: Current Medications Amlodipine Besylate (Norvasc) 5 mg PO DAILY [facility] Aspirin (Aspirin Chewable) 81 mg PO DAILY [facility] Sodium Chloride (Sodium Chloride 0.9%) 1,000 mls @ 150 mls/hr IV .Q6H40M [facility] Last Admin: 06/12/18 21:50 Dose: 150 mls/hr Metronidazole (Flagyl) 500 mg in 100 mls @ 100 mls/hr IVPB Q8 [facility]; Protocol Insulin Human Regular 100 (units/ Sodium Chloride) 100 mls @ 7 mls/hr IV .[id number] PRN; Protocol PRN Reason: TITRATE PER MD ORDER Sodium Chloride (Sodium Chloride 0.9%) 1,000 mls @ 999 mls/hr IV .Q1H1M STA Stop: 06/12/18 23:39 Sodium Chloride (Sodium Chloride 0.9%) 1,000 mls @ 999 mls/hr IV .Q1H1M STA Stop: 06/12/18 23:39 Sodium Chloride (Sodium Chloride 0.9%) 1,000 mls @ 999 mls/hr IV .Q1H1M STA Stop: 06/12/18 23:39 Sodium Chloride (Sodium Chloride 0.9%) 1,000 mls @ 999 mls/hr IV .Q1H1M STA Stop: 06/12/18 23:39 Insulin Detemir (Levemir) 5 unit SC Q12 [facility] Insulin Human Lispro (Humalog Med) 0 units SC ACHS [facility]; Protocol Metoprolol Tartrate (Lopressor) 25 mg PO HS [facility] Ondansetron HCl (Zofran Inj) 4 mg IVP Q6H PRN PRN Reason: Nausea/Vomiting Pantoprazole Sodium (Protonix Inj) 40 mg IVP DAILY [facility] Paroxetine HCl (Paxil) 10 mg PO DAILY [facility] Physical Exam - Constitutional Appears: No Acute Distress, Unkempt - Head Exam Head Exam: ATRAUMATIC, NORMAL INSPECTION - Eye Exam Eye Exam: EOMI, Normal appearance - ENT Exam ENT Exam: Mucous Membranes Dry - Respiratory Exam Respiratory Exam: NORMAL BREATHING PATTERN. absent: Rales, Rhonchi, Wheezes - Cardiovascular Exam Cardiovascular Exam: RRR, +S1, +S2 - GI/Abdominal Exam GI & Abdominal Exam: Normal Bowel Sounds, Soft. absent: Distended, Tenderness - Extremities Exam Extremities exam: Positive for: full ROM. Negative for: pedal edema, tenderness - Back Exam Back exam: absent: CVA tenderness (L), CVA tenderness (R) - Neurological Exam Neurological exam: Alert - Psychiatric Exam Psychiatric exam: Normal Mood - Skin Skin Exam: Dry, Warm Results - Vital Signs Recent Vital Signs: Last Vital Signs Temp 98.6 F 06/12/18 21:38 Pulse 88 06/12/18 21:38 Resp 18 06/12/18 21:38 BP 100/64 06/12/18 21:38 Pulse Ox 98 06/12/18 21:38 - Labs Result Diagrams: 06/12/18 21:50 06/12/18 21:50 Labs: Laboratory Results - last 24 hr 06/12/18 06/12/18 06/12/18 21:50 21:50 21:50 WBC 13.7 H RBC 4.77 Hgb 12.9 Hct 40.4 MCV 84.7 MCH 27.0 MCHC 31.9 RDW 13.7 Plt Count 324 MPV 10.2 Neut % (Auto) 92.0 H Lymph % (Auto) 4.2 L [place] % (Auto) 3.6 Eos % (Auto) 0.1 L Baso % (Auto) 0.1 Lymph # (Auto) 0.6 L [place] # (Auto) 0.5 Eos # (Auto) 0.0 Baso # (Auto) 0.01 Absolute Neuts (auto) 12.62 H pO2 50 VBG pH 7.24 L VBG pCO2 45.0 VBG HCO3 19.3 L VBG Total CO2 20.7 L VBG O2 Sat (Calc) 85.8 H VBG Base Excess -8.0 L VBG Potassium 4.8 Sodium 134.0 133 Chloride 95.0 L 99 Glucose > 750 H* Lactate 4.1 H* FiO2 21.0 Crit Value Called To Arian valerio Crit Value Called By [facility] Blood Gas Notified Time 2220 Potassium 4.7 Carbon Dioxide 19 L Anion Gap 20 BUN 22 H Creatinine 1.7 H Est GFR ( Amer) 36 Est GFR (Non-Af Amer) 29 Random Glucose 682 H* D Calcium 9.6 Magnesium 1.9 Total Bilirubin 0.7 AST 17 ALT 9 Alkaline Phosphatase 147 H Total Protein 7.1 Albumin 4.1 Globulin 3.0 Albumin/Globulin Ratio 1.4 Venous Blood Potassium 4.8 Assessment & Plan - Assessment and Plan (Free Text) Assessment: 72 year old female with a PMH of Basal cell CA, 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 Patient found to be hyperglycemic likely due to hyperosmolar hyperglycemia syndrome rather than DKA as anion gap is not elevated and bicarb is not low. Nevertheless, due to poor medical compliance and likely insulin insensitivity, will admit to ICU for close monitoring. Plan: - will admit patient to ICU For close monitoring and for titration of insulin drip - continue w/ IVF - will monitor fingersticks Q1 - will monitor BMP q4 to avoid hypokalemia - cont insulin drip at this time - urine, blood and stool cultures ordered by pmd - TSH or A1c ordered Case was reviewed and discussed with Dr. Hampton <Argelia Hampton - Last Filed: 06/13/18 19:18> Meds - Medications Medications: Current Medications Amlodipine Besylate (Norvasc) 5 mg PO DAILY [facility] Last Admin: 06/13/18 09:53 Dose: 5 mg Aspirin (Aspirin Chewable) 81 mg PO DAILY [facility] Last Admin: 06/13/18 09:50 Dose: 81 mg Glimepiride (Amaryl) 2 mg PO ACBD [facility] Last Admin: 06/13/18 17:26 Dose: 2 mg Metronidazole (Flagyl) 500 mg in 100 mls @ 100 mls/hr IVPB Q8 [facility]; Protocol Last Admin: 06/13/18 12:53 Dose: 100 mls/hr Dextrose/Sodium Chloride (Dextrose 5%/0.45% Ns 1000 Ml) 1,000 mls @ 100 mls/hr IV .Q10H [facility] Last Admin: 06/13/18 04:40 Dose: 100 mls/hr Insulin Detemir (Levemir) 10 unit SC HS [facility] Insulin Human Lispro (Humalog High) 0 units SC ACHS [facility]; Protocol Last Admin: 02/19/19 16:24 Dose: Not Given Metformin HCl (Glucophage) 500 mg PO BID [facility] Last Admin: 06/13/18 17:26 Dose: 500 mg Metoprolol Tartrate (Lopressor) 25 mg PO HS [facility] Ondansetron HCl (Zofran Inj) 4 mg IVP Q6H PRN PRN Reason: Nausea/Vomiting Pantoprazole Sodium (Protonix Ec Tab) 40 mg PO ACB [facility] Paroxetine HCl (Paxil) 10 mg PO DAILY [facility] Last Admin: 06/13/18 10:44 Dose: 10 mg Results - Vital Signs Recent Vital Signs: Last Vital Signs Temp 98.1 F 06/13/18 16:00 Pulse 91 H 06/13/18 16:00 Resp 18 06/13/18 16:00 BP 101/44 L 06/13/18 16:00 Pulse Ox 97 06/13/18 16:00 - Labs Result Diagrams: 06/13/18 05:40 06/13/18 11:45 Labs: Laboratory Results - last 24 hr 06/12/18 06/12/18 06/12/18 21:50 21:50 21:50 WBC 13.7 H RBC 4.77 Hgb 12.9 Hct 40.4 MCV 84.7 MCH 27.0 MCHC 31.9 RDW 13.7 Plt Count 324 MPV 10.2 Neut % (Auto) 92.0 H Lymph % (Auto) 4.2 L [place] % (Auto) 3.6 Eos % (Auto) 0.1 L Baso % (Auto) 0.1 Lymph # (Auto) 0.6 L [place] # (Auto) 0.5 Eos # (Auto) 0.0 Baso # (Auto) 0.01 Absolute Neuts (auto) 12.62 H Neutrophils % (Manual) 90 H Band Neutrophils % 4 H Lymphocytes % (Manual) 3 L Monocytes % (Manual) 3 Platelet Evaluation Normal pO2 50 VBG pH 7.24 L VBG pCO2 45.0 VBG HCO3 19.3 L VBG Total CO2 20.7 L VBG O2 Sat (Calc) 85.8 H VBG Base Excess -8.0 L VBG Potassium 4.8 Sodium 134.0 133 Chloride 95.0 L 99 Glucose > 750 H* Lactate 4.1 H* FiO2 21.0 Crit Value Called To Arian valerio Crit Value Called By [facility] Blood Gas Notified Time 2220 Potassium 4.7 Carbon Dioxide 19 L Anion Gap 20 BUN 22 H Creatinine 1.7 H Est GFR ( Amer) 36 Est GFR (Non-Af Amer) 29 POC Glucose (mg/dL) Random Glucose 682 H* D Hemoglobin A1c Calcium 9.6 Magnesium 1.9 Total Bilirubin 0.7 AST 17 ALT 9 Alkaline Phosphatase 147 H Total Protein 7.1 Albumin 4.1 Globulin 3.0 Albumin/Globulin Ratio 1.4 Free T4 TSH 3rd Generation Venous Blood Potassium 4.8 Urine Color Urine Appearance Urine pH Ur Specific [place] Urine Protein Urine Glucose (UA) Urine Ketones Urine Blood Urine Nitrate Urine Bilirubin Urine Urobilinogen Ur Leukocyte Esterase Urine RBC Urine WBC Ur Epithelial Cells Urine Bacteria 06/12/18 06/12/18 06/13/18 21:50 22:52 00:34 WBC RBC Hgb Hct MCV MCH MCHC RDW Plt Count MPV Neut % (Auto) Lymph % (Auto) [place] % (Auto) Eos % (Auto) Baso % (Auto) Lymph # (Auto) [place] # (Auto) Eos # (Auto) Baso # (Auto) Absolute Neuts (auto) Neutrophils % (Manual) Band Neutrophils % Lymphocytes % (Manual) Monocytes % (Manual) Platelet Evaluation pO2 VBG pH VBG pCO2 VBG HCO3 VBG Total CO2 VBG O2 Sat (Calc) VBG Base Excess VBG Potassium Sodium Chloride Glucose Lactate FiO2 Crit Value Called To Crit Value Called By Blood Gas Notified Time Potassium Carbon Dioxide Anion Gap BUN Creatinine Est GFR ( Amer) Est GFR (Non-Af Amer) POC Glucose (mg/dL) > 500 H* 448 H* Random Glucose Hemoglobin A1c 13.3 H D Calcium Magnesium Total Bilirubin AST ALT Alkaline Phosphatase Total Protein Albumin Globulin Albumin/Globulin Ratio Free T4 TSH 3rd Generation Venous Blood Potassium Urine Color Urine Appearance Urine pH Ur Specific [place] Urine Protein Urine Glucose (UA) Urine Ketones Urine Blood Urine Nitrate Urine Bilirubin Urine Urobilinogen Ur Leukocyte Esterase Urine RBC Urine WBC Ur Epithelial Cells Urine Bacteria 06/13/18 06/13/18 06/13/18 01:10 01:10 02:23 WBC RBC Hgb Hct MCV MCH MCHC RDW Plt Count MPV Neut % (Auto) Lymph % (Auto) [place] % (Auto) Eos % (Auto) Baso % (Auto) Lymph # (Auto) [place] # (Auto) Eos # (Auto) Baso # (Auto) Absolute Neuts (auto) Neutrophils % (Manual) Band Neutrophils % Lymphocytes % (Manual) Monocytes % (Manual) Platelet Evaluation pO2 31 VBG pH 7.24 L VBG pCO2 38.0 L VBG HCO3 16.3 L VBG Total CO2 17.5 L VBG O2 Sat (Calc) 56.5 VBG Base Excess -10.4 L VBG Potassium 3.8 Sodium 139 142.0 Chloride 114 H 110.0 H Glucose 366 H Lactate 4.8 H* FiO2 21.0 Crit Value Called To 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 Crit Value Called By [facility] Blood Gas Notified Time 151 Potassium 4.0 Carbon Dioxide 17 L Anion Gap 12 BUN 19 Creatinine 1.4 H Est GFR ( Amer) 45 Est GFR (Non-Af Amer) 37 POC Glucose (mg/dL) 249 H Random Glucose 330 H* D Hemoglobin A1c Calcium 7.8 L Magnesium Total Bilirubin AST ALT Alkaline Phosphatase Total Protein Albumin Globulin Albumin/Globulin Ratio Free T4 TSH 3rd Generation Venous Blood Potassium 3.8 Urine Color Urine Appearance Urine pH Ur Specific [place] Urine Protein Urine Glucose (UA) Urine Ketones Urine Blood Urine Nitrate Urine Bilirubin Urine Urobilinogen Ur Leukocyte Esterase Urine RBC Urine WBC Ur Epithelial Cells Urine Bacteria 06/13/18 06/13/18 06/13/18 03:55 04:26 04:55 WBC RBC Hgb Hct MCV MCH MCHC RDW Plt Count MPV Neut % (Auto) Lymph % (Auto) [place] % (Auto) Eos % (Auto) Baso % (Auto) Lymph # (Auto) [place] # (Auto) Eos # (Auto) Baso # (Auto) Absolute Neuts (auto) Neutrophils % (Manual) Band Neutrophils % Lymphocytes % (Manual) Monocytes % (Manual) Platelet Evaluation pO2 VBG pH VBG pCO2 VBG HCO3 VBG Total CO2 VBG O2 Sat (Calc) VBG Base Excess VBG Potassium Sodium Chloride Glucose Lactate FiO2 Crit Value Called To Crit Value Called By Blood Gas Notified Time Potassium Carbon Dioxide Anion Gap BUN Creatinine Est GFR ( Amer) Est GFR (Non-Af Amer) POC Glucose (mg/dL) 181 H 145 H Random Glucose Hemoglobin A1c Calcium Magnesium Total Bilirubin AST ALT Alkaline Phosphatase Total Protein Albumin Globulin Albumin/Globulin Ratio Free T4 TSH 3rd Generation Venous Blood Potassium Urine Color Yellow Urine Appearance Clear Urine pH 6.0 Ur Specific [place] 1.020 Urine Protein Trace H Urine Glucose (UA) >=1000 Urine Ketones Trace H Urine Blood Trace-lysed H Urine Nitrate Negative Urine Bilirubin Negative Urine Urobilinogen 0.2 Ur Leukocyte Esterase Negative Urine RBC 0 - 2 Urine WBC 0 - 2 Ur Epithelial Cells 1 - 3 Urine Bacteria Trace 06/13/18 06/13/18 06/13/18 05:31 05:40 05:40 WBC 10.0 D RBC 4.00 Hgb 10.5 L D Hct 33.5 L MCV 83.8 MCH 26.3 MCHC 31.3 RDW 13.8 Plt Count 273 MPV 10.2 Neut % (Auto) 82.9 H Lymph % (Auto) 11.1 L [place] % (Auto) 5.7 Eos % (Auto) 0.2 L Baso % (Auto) 0.1 Lymph # (Auto) 1.1 L [place] # (Auto) 0.6 Eos # (Auto) 0.0 Baso # (Auto) 0.01 Absolute Neuts (auto) 8.25 H Neutrophils % (Manual) Band Neutrophils % Lymphocytes % (Manual) Monocytes % (Manual) Platelet Evaluation pO2 VBG pH VBG pCO2 VBG HCO3 VBG Total CO2 VBG O2 Sat (Calc) VBG Base Excess VBG Potassium Sodium Chloride Glucose Lactate FiO2 Crit Value Called To Crit Value Called By Blood Gas Notified Time Potassium Carbon Dioxide Anion Gap BUN Creatinine Est GFR ( Amer) Est GFR (Non-Af Amer) POC Glucose (mg/dL) 152 H Random Glucose Hemoglobin A1c Calcium Magnesium Total Bilirubin AST ALT Alkaline Phosphatase Total Protein Albumin Globulin Albumin/Globulin Ratio Free T4 1.46 TSH 3rd Generation 0.43 L Venous Blood Potassium Urine Color Urine Appearance Urine pH Ur Specific [place] Urine Protein Urine Glucose (UA) Urine Ketones Urine Blood Urine Nitrate Urine Bilirubin Urine Urobilinogen Ur Leukocyte Esterase Urine RBC Urine WBC Ur Epithelial Cells Urine Bacteria 06/13/18 06/13/18 06/13/18 05:40 06:27 09:40 WBC RBC Hgb Hct MCV MCH MCHC RDW Plt Count MPV Neut % (Auto) Lymph % (Auto) [place] % (Auto) Eos % (Auto) Baso % (Auto) Lymph # (Auto) [place] # (Auto) Eos # (Auto) Baso # (Auto) Absolute Neuts (auto) Neutrophils % (Manual) Band Neutrophils % Lymphocytes % (Manual) Monocytes % (Manual) Platelet Evaluation pO2 VBG pH VBG pCO2 VBG HCO3 VBG Total CO2 VBG O2 Sat (Calc) VBG Base Excess VBG Potassium Sodium 142 140 Chloride 115 H 114 H Glucose Lactate FiO2 Crit Value Called To Crit Value Called By Blood Gas Notified Time Potassium 3.9 4.0 Carbon Dioxide 21 21 Anion Gap 10 9 L BUN 19 18 Creatinine 1.4 H 1.4 H Est GFR ( Amer) 45 45 Est GFR (Non-Af Amer) 37 37 POC Glucose (mg/dL) 137 H Random Glucose 157 H 260 H Hemoglobin A1c Calcium 8.2 L 8.0 L Magnesium Total Bilirubin AST ALT Alkaline Phosphatase Total Protein Albumin Globulin Albumin/Globulin Ratio Free T4 TSH 3rd Generation Venous Blood Potassium Urine Color Urine Appearance Urine pH Ur Specific [place] Urine Protein Urine Glucose (UA) Urine Ketones Urine Blood Urine Nitrate Urine Bilirubin Urine Urobilinogen Ur Leukocyte Esterase Urine RBC Urine WBC Ur Epithelial Cells Urine Bacteria 06/13/18 06/13/18 06/13/18 09:47 11:45 11:55 WBC RBC Hgb Hct MCV MCH MCHC RDW Plt Count MPV Neut % (Auto) Lymph % (Auto) [place] % (Auto) Eos % (Auto) Baso % (Auto) Lymph # (Auto) [place] # (Auto) Eos # (Auto) Baso # (Auto) Absolute Neuts (auto) Neutrophils % (Manual) Band Neutrophils % Lymphocytes % (Manual) Monocytes % (Manual) Platelet Evaluation pO2 VBG pH VBG pCO2 VBG HCO3 VBG Total CO2 VBG O2 Sat (Calc) VBG Base Excess VBG Potassium Sodium 139 Chloride 113 H Glucose Lactate FiO2 Crit Value Called To Crit Value Called By Blood Gas Notified Time Potassium 4.1 Carbon Dioxide 21 Anion Gap 10 BUN 18 Creatinine 1.4 H Est GFR ( Amer) 45 Est GFR (Non-Af Amer) 37 POC Glucose (mg/dL) 255 H 309 H Random Glucose 292 H Hemoglobin A1c Calcium 8.0 L Magnesium Total Bilirubin AST ALT Alkaline Phosphatase Total Protein Albumin Globulin Albumin/Globulin Ratio Free T4 TSH 3rd Generation Venous Blood Potassium Urine Color Urine Appearance Urine pH Ur Specific [place] Urine Protein Urine Glucose (UA) Urine Ketones Urine Blood Urine Nitrate Urine Bilirubin Urine Urobilinogen Ur Leukocyte Esterase Urine RBC Urine WBC Ur Epithelial Cells Urine Bacteria 06/13/18 06/13/18 13:35 16:21 WBC RBC Hgb Hct MCV MCH MCHC RDW Plt Count MPV Neut % (Auto) Lymph % (Auto) [place] % (Auto) Eos % (Auto) Baso % (Auto) Lymph # (Auto) [place] # (Auto) Eos # (Auto) Baso # (Auto) Absolute Neuts (auto) Neutrophils % (Manual) Band Neutrophils % Lymphocytes % (Manual) Monocytes % (Manual) Platelet Evaluation pO2 28 L VBG pH 7.30 L VBG pCO2 40.0 VBG HCO3 19.7 L VBG Total CO2 20.9 L VBG O2 Sat (Calc) 55.5 VBG Base Excess -6.3 L VBG Potassium 3.4 L Sodium 139.0 Chloride 111.0 H Glucose 250 H Lactate 1.7 FiO2 21.0 Crit Value Called To Crit Value Called By Blood Gas Notified Time Potassium Carbon Dioxide Anion Gap BUN Creatinine Est GFR ( Amer) Est GFR (Non-Af Amer) POC Glucose (mg/dL) 83 Random Glucose Hemoglobin A1c Calcium Magnesium Total Bilirubin AST ALT Alkaline Phosphatase Total Protein Albumin Globulin Albumin/Globulin Ratio Free T4 TSH 3rd Generation Venous Blood Potassium 3.4 L Urine Color Urine Appearance Urine pH Ur Specific [place] Urine Protein Urine Glucose (UA) Urine Ketones Urine Blood Urine Nitrate Urine Bilirubin Urine Urobilinogen Ur Leukocyte Esterase Urine RBC Urine WBC Ur Epithelial Cells Urine Bacteria Attending/Attestation - Attestation I have personally seen and examined this patient.: Yes I have fully participated in the care of the patient.: Yes I have reviewed all pertinent clinical information: Yes Notes (Text): 06/13/18 19:16 Examined and discussed with resident. A&P formulated with resident. Appears older than stated age. Need social media designer consult to assess living conditions. Gastroenteritis check stool studies rest of care as in H&P
[2018-06-12 23:16] LABS: BAND 4 % (0-2); LYMPHOCYTE 3 % (22.0-35.0); NEUTROPHIL 90 % (50.0-70.0)
[2018-06-12 23:17] LABS: MONOCYTE 3 % (1.0-6.0); PLATELET ESTIMATE NORMAL (NORMAL)
[2018-06-12] MEDS: metroNIDAZOLE IV 500 mg/100 ml 500 MG/100 ML BAG IVPB SCH (23:25)
[2018-06-12] MEDS: Insulin Detemir 100 units/ml Vial (Levemir) SC SCH (23:25)
[2018-06-13 01:37] VITALS: BMI 25.2
[2018-06-13 01:46] LABS: CALCIUM 7.8 mg/dL (8.4-10.5)
--- NOTE | 2018-06-13 01:47 | HP ---
DATE OF EXAM: 06/12/2018 HISTORY OF PRESENT ILLNESS: The patient is a 72-year-old poor historian, sister Ramointa Valentin, she is my patient. She states the patient has not been doing well. She has poor oral intake, is not ambulating, and has whole generalized body aches and pain, abdominal discomfort with diarrhea for the last almost 2-3 weeks. According to sister, she is having nausea and vomiting, and she has poor appetite for a few days, started with nausea and vomiting today. She has no fever. No chills. No cough or congestion. No hemoptysis, no hematemesis. No rectal bleeding. PAST MEDICAL HISTORY: Significant for: 1. Previous CVA with left hemiparesis. 2. Hypertension. 3. [id number] diabetes. 4. Peptic ulcer disease. 5. History of heavy smoking in the past. 6. Hyperlipidemia. ALLERGIES: NOT ALLERGIC TO ANY MEDICATIONS. MEDICATIONS AT HOME: She is on tramadol 50 mg every 6, Norvasc 5 mg daily, Protonix 40 daily, Paxil 10 mg daily, metoprolol 25 at bedtime, metformin 1000 twice a day, lisinopril 20 mg daily, Lantus 10 units at bedtime, Prozac 20 daily, atorvastatin 40 daily, aspirin 81 daily. SOCIAL HISTORY: She lives with her sister who takes care of her. She did smoke in the past. PHYSICAL EXAMINATION: GENERAL: She looks very unkempt. VITAL SIGNS: She is afebrile, pulse 88, respirations 18, blood pressure 100/64. LUNGS: Bilateral fair airflow. No rhonchi or crackle. HEART: S1 and S2 audible. ABDOMEN: Soft and nontender. No rebound. No guarding. NEUROLOGIC: The patient is awake, alert, has left-sided weakness. LABORATORY DATA: Sodium is 133, potassium is 4.7, chloride 99, CO2 of 19, BUN 22, creatinine 1.7, was 147. ASSESSMENT: 1. Intractable nausea, vomiting and diarrhea. 2. History of [id number] diabetes. 3. Hypertension. 4. Hyperlipidemia. 5. History of cerebrovascular accident with left hemiparesis. PLAN: We will sent stool for Clostridium difficile, start her on IV fluids, monitor blood sugar, start her on IV antibiotics. Follow up electrolyte and CBC in a.m. Maritza Adams MD [facility] # [id number]
[2018-06-13 01:51] LABS: VENOUS BLOOD GAS BASE EXCESS -10.4 mmol/L (0.0-2.0); VENOUS BLOOD GAS PO2 31 mm/Hg (30-55); VENOUS BLOOD PH 7.24 (7.32-7.43)
[2018-06-13] MEDS: Dextrose 5%/0.45% NS 1,000 ML IV SCH (04:40)
[2018-06-13 05:22] LABS: URINE BILIRUBIN NEGATIVE (NEGATIVE); URINE BLOOD TRACE-LYSED (NEGATIVE); URINE GLUCOSE (UA) >=1000 mg/dL (NEGATIVE); URINE LEUKOCYTE ESTERASE NEGATIVE Leu/uL (NEGATIVE); URINE PROTEIN TRACE mg/dL (<30 mg/dL); URINE UROBILINOGEN 0.2 E.U./dL (<1 E.U./dL)
[2018-06-13 05:24] LABS: URINE APPEARANCE CLEAR (CLEAR); URINE COLOR YELLOW (YELLOW)
[2018-06-13] MEDS: metroNIDAZOLE IV 500 mg/100 ml 500 MG/100 ML BAG IVPB SCH ×3 (05:24→22:03)
[2018-06-13 05:41] LABS: URINE BACTERIA TRACE /hpf; URINE RBC 0 - 2 /hpf (0-2); URINE WBC 0 - 2 /hpf (0-6)
[2018-06-13] MEDS ORDERED: Insulin Detemir 100 units/ml Vial (Levemir) SC STA (06:22)
[2018-06-13] MEDS ORDERED: Piperacillin/Tazobact 3.375 gm 100 ML IVPB STA (07:04)
[2018-06-13 07:14] LABS: CALCIUM 8.2 mg/dL (8.4-10.5)
[2018-06-13 07:15] LABS: BASO # 0.01 K/mm3 (0.0-2.0); BASO % 0.1 % (0.0-3.0); EOS % 0.2 % (1.5-5.0); HEMOGLOBIN 10.5 g/dL (12.0-16.0); LYMPH # 1.1 (1.2-3.4); LYMPH % 11.1 % (22.0-35.0); MEAN CELL VOLUME 83.8 fl (80.0-105.0); MEAN CORPUSCULAR HEMOGLOBIN 26.3 pg (25.0-35.0); MEAN CORPUSCULAR HGB CONC 31.3 g/dl (31.0-37.0); MEAN PLATELET VOLUME 10.2 fl (7.0-11.0); MONO # 0.6 (0.1-0.6); MONO % 5.7 % (1.0-6.0); RED CELL DISTRIBUTION WIDTH 13.8 % (11.5-14.5)
[2018-06-13] MEDS ORDERED: Insulin Lispro (humaLOG) MEDIUM Coverage SC SCH (07:30)
[2018-06-13 07:33] LABS: FREE T4 1.46 ng/dL (0.78-2.19)
--- NOTE | 2018-06-13 08:30 | CT ---
Date of service: 06/12/2018 PROCEDURE: CT HEAD WITHOUT CONTRAST. HISTORY: altered mentation COMPARISON: 09/16/2016 TECHNIQUE: Axial computed tomography images were obtained through the head/brain without intravenous contrast. Radiation dose: Total exam DLP = 833.04 mGy-cm. This CT exam was performed using one or more of the following dose reduction techniques: Automated exposure control, adjustment of the mA and/or kV according to patient size, and/or use of iterative reconstruction technique. FINDINGS: HEMORRHAGE: No intracranial hemorrhage. BRAIN: No mass effect or edema. Chronic infarcts in the right basal ganglia and right frontal lobe with focal atrophy. No acute intracranial findings VENTRICLES: Unremarkable. No hydrocephalus. CALVARIUM: Unremarkable. PARANASAL SINUSES: Unremarkable as visualized. No significant inflammatory changes. MASTOID AIR CELLS: Unremarkable as visualized. No inflammatory changes. OTHER FINDINGS: The report concurs with the preliminary [facility] report IMPRESSION: No acute intracranial abnormalities
--- NOTE | 2018-06-13 09:46 | CP.CCUPN ---
<Sheldon Shepard - Last Filed: 06/13/18 10:33> CCU Subjective - Physician Review Subjective (Free Text): 06/13/18 09:41 Sheldon Shepard, PGY-1 ICU Progress Note for Dr. Soto Pt was seen and examined this AM at bedside with ICU team. Pt states that she is no longer having any abdominal pain, just a bloating sensation. She also states that her feelings of nausea and vomiting have improved. She has no acute complaints at this time. CCU Objective - Vital Signs / Intake & Output Vital Signs (Last 4 hours): Vital Signs Pulse Resp BP Pulse Ox 06/13/18 06:50 93 H 17 100 06/13/18 06:40 97 H 22 100 06/13/18 06:30 95 H 20 100 06/13/18 06:20 95 H 19 100 06/13/18 06:10 96 H 18 100 06/13/18 06:00 95 H 17 140/72 100 06/13/18 05:50 97 H 21 100 Intake and Output (Last 8hrs): Intake & Output 06/12/18 06/13/18 06/13/18 22:59 06:59 14:59 Intake Total 5362 Output Total 350 Balance 5012 Weight 160 lb 156 lb 12.8 oz Intake: IV 5362 Left Upper arm 5300 Right Antecubital 30 Output: Urine 350 Urine, Voided 350 Other: Voiding Method Diaper # Bowel Movements 1 - Physical Exam Head: Positive for: Atraumatic, Normocephalic Pupils: Positive for: PERRL Extroacular Muscles: Positive for: EOMI Conjunctiva: Positive for: Normal Mouth: Positive for: Moist Mucous Membranes Neck: Positive for: Normal Range of Motion Respiratory/Chest: Positive for: Clear to Auscultation, Good Air Exchange. Negative for: Respiratory Distress, Accessory Muscle Use Cardiovascular: Positive for: Regular Rate and Rhythm, Normal S1, S2. Negative for: Murmurs Abdomen: Positive for: Normal Bowel Sounds. Negative for: Tenderness, Distention, Peritoneal Signs, Rebound Back: Positive for: Normal Inspection Upper Extremity: Positive for: Normal Inspection. Negative for: Cyanosis, Edema Lower Extremity: Positive for: Normal Inspection. Negative for: Edema Neurological: Positive for: GCS=15, CN II-XII Intact, Speech Normal Skin: Positive for: Warm, Dry, Normal Color. Negative for: Rashes Psychiatric: Positive for: Alert, Oriented x 3, Normal Insight, Normal Concentration - Medications Active Medications: Active Medications Generic Name Dose Route Start Last Admin Trade Name Freq PRN Reason Stop Dose Admin Amlodipine Besylate 5 mg 06/13/18 10:00 Norvasc PO DAILY [facility] Aspirin 81 mg 06/13/18 10:00 Aspirin Chewable PO DAILY [facility] Metronidazole 500 mg in 100 mls @ 100 mls/hr 06/12/18 22:30 06/13/18 05:24 Flagyl IVPB 100 mls/hr Q8 CLAUDY Administration Protocol Dextrose/Sodium Chloride 1,000 mls @ 100 mls/hr 06/13/18 04:45 06/13/18 04:40 Dextrose 5%/0.45% Ns 1000 Ml IV 100 mls/hr .Q10H CLAUDY Administration Insulin Detemir 5 unit 06/12/18 22:30 06/12/18 23:25 Levemir SC 5 unit Q12 CLAUDY Administration Insulin Human Lispro 0 units 06/13/18 07:30 06/13/18 08:33 Humalog Med SC Not Given ACHS [facility] Protocol Metoprolol Tartrate 25 mg 06/13/18 22:00 Lopressor PO HS [facility] Ondansetron HCl 4 mg 06/12/18 22:23 Zofran Inj IVP Q6H PRN Nausea/Vomiting Pantoprazole Sodium 40 mg 06/13/18 10:00 Protonix Inj IVP DAILY [facility] Paroxetine HCl 10 mg 06/13/18 10:00 Paxil PO DAILY [facility] - Patient Studies Lab Studies: Lab Studies 06/13/18 06/13/18 06/13/18 Range/Units 06:27 05:40 05:40 WBC (4.5-11.0) 10^3/uL RBC (3.5-6.1) 10^6/uL Hgb (12.0-16.0) g/dL Hct (36.0-48.0) % MCV (80.0-105.0) fl MCH (25.0-35.0) pg MCHC (31.0-37.0) g/dl RDW (11.5-14.5) % Plt Count (120.0-450.0) 10^3/uL MPV (7.0-11.0) fl Neut % (Auto) (50.0-68.0) % Lymph % (Auto) (22.0-35.0) % Bound[place] % (Auto) (1.0-6.0) % Eos % (Auto) (1.5-5.0) % Baso % (Auto) (0.0-3.0) % Lymph # (Auto) (1.2-3.4) [place] # (Auto) (0.1-0.6) Eos # (Auto) (0.0-0.7) Baso # (Auto) (0.0-2.0) K/mm3 Absolute Neuts (auto) (1.4-6.5) Neutrophils % (Manual) (50.0-70.0) % Band Neutrophils % (0-2) % Lymphocytes % (Manual) (22.0-35.0) % Monocytes % (Manual) (1.0-6.0) % Platelet Evaluation (NORMAL) pO2 (30-55) mm/Hg VBG pH (7.32-7.43) VBG pCO2 (40-60) VBG HCO3 (21-28) mmol/l VBG Total CO2 (22-28) mmol.L VBG O2 Sat (Calc) (40-65) % VBG Base Excess (0.0-2.0) mmol/L VBG Potassium (3.6-5.2) mmol/L Sodium 142 (132-148) mmol/L Chloride 115 H (98-107) mmol/L Glucose (65-105) mg/dl Lactate (0.7-2.1) mmol/L FiO2 % Crit Value Called To Crit Value Called By Blood Gas Notified Time Potassium 3.9 (3.6-5.0) mmol/L Carbon Dioxide 21 (21-33) mmol/L Anion Gap 10 (10-20) BUN 19 (7-21) mg/dL Creatinine 1.4 H (0.7-1.2) mg/dl Est GFR ( Amer) 45 Est GFR (Non-Af Amer) 37 POC Glucose (mg/dL) 137 H (65-110) mg/dL Random Glucose 157 H (70-110) mg/dL Calcium 8.2 L (8.4-10.5) mg/dL Magnesium (1.7-2.2) mg/dL Total Bilirubin (0.2-1.3) mg/dL AST (14-36) U/L ALT (7-56) U/L Alkaline Phosphatase (38-126) U/L Total Protein (5.8-8.3) g/dL Albumin (3.0-4.8) g/dL Globulin gm/dL Albumin/Globulin Ratio (1.1-1.8) Free T4 1.46 (0.78-2.19) ng/dL TSH 3rd Generation 0.43 L (0.46-4.68) mIU/mL Venous Blood Potassium (3.6-5.2) mmol/L Urine Color (YELLOW) Urine Appearance (CLEAR) Urine pH (4.7-8.0) Ur Specific [place] (1.005-1.035) Urine Protein (<30 mg/dL) mg/dL Urine Glucose (UA) (NEGATIVE) mg/dL Urine Ketones (NEGATIVE) mg/dL Urine Blood (NEGATIVE) Urine Nitrate (NEGATIVE) Urine Bilirubin (NEGATIVE) Urine Urobilinogen (<1 E.U./dL) E.U./dL Ur Leukocyte Esterase (NEGATIVE) Murray/uL Urine RBC (0-2) /hpf Urine WBC (0-6) /hpf Ur Epithelial Cells (0-5) /hpf Urine Bacteria (NONE) /hpf 06/13/18 06/13/18 06/13/18 Range/Units 05:40 05:31 04:55 WBC 10.0 D (4.5-11.0) 10^3/uL RBC 4.00 (3.5-6.1) 10^6/uL Hgb 10.5 L D (12.0-16.0) g/dL Hct 33.5 L (36.0-48.0) % MCV 83.8 (80.0-105.0) fl MCH 26.3 (25.0-35.0) pg MCHC 31.3 (31.0-37.0) g/dl RDW 13.8 (11.5-14.5) % Plt Count 273 (120.0-450.0) 10^3/uL MPV 10.2 (7.0-11.0) fl Neut % (Auto) 82.9 H (50.0-68.0) % Lymph % (Auto) 11.1 L (22.0-35.0) % Boundary % (Auto) 5.7 (1.0-6.0) % Eos % (Auto) 0.2 L (1.5-5.0) % Baso % (Auto) 0.1 (0.0-3.0) % Lymph # (Auto) 1.1 L (1.2-3.4) Bound[place] # (Auto) 0.6 (0.1-0.6) Eos # (Auto) 0.0 (0.0-0.7) Baso # (Auto) 0.01 (0.0-2.0) K/mm3 Absolute Neuts (auto) 8.25 H (1.4-6.5) Neutrophils % (Manual) (50.0-70.0) % Band Neutrophils % (0-2) % Lymphocytes % (Manual) (22.0-35.0) % Monocytes % (Manual) (1.0-6.0) % Platelet Evaluation (NORMAL) pO2 (30-55) mm/Hg VBG pH (7.32-7.43) VBG pCO2 (40-60) VBG HCO3 (21-28) mmol/l VBG Total CO2 (22-28) mmol.L VBG O2 Sat (Calc) (40-65) % VBG Base Excess (0.0-2.0) mmol/L VBG Potassium (3.6-5.2) mmol/L Sodium (132-148) mmol/L Chloride (98-107) mmol/L Glucose (65-105) mg/dl Lactate (0.7-2.1) mmol/L FiO2 % Crit Value Called To Crit Value Called By Blood Gas Notified Time Potassium (3.6-5.0) mmol/L Carbon Dioxide (21-33) mmol/L Anion Gap (10-20) BUN (7-21) mg/dL Creatinine (0.7-1.2) mg/dl Est GFR ( Amer) Est GFR (Non-Af Amer) POC Glucose (mg/dL) 152 H (65-110) mg/dL Random Glucose (70-110) mg/dL Calcium (8.4-10.5) mg/dL Magnesium (1.7-2.2) mg/dL Total Bilirubin (0.2-1.3) mg/dL AST (14-36) U/L ALT (7-56) U/L Alkaline Phosphatase (38-126) U/L Total Protein (5.8-8.3) g/dL Albumin (3.0-4.8) g/dL Globulin gm/dL Albumin/Globulin Ratio (1.1-1.8) Free T4 (0.78-2.19) ng/dL TSH 3rd Generation (0.46-4.68) mIU/mL Venous Blood Potassium (3.6-5.2) mmol/L Urine Color Yellow (YELLOW) Urine Appearance Clear (CLEAR) Urine pH 6.0 (4.7-8.0) Ur Specific [place] 1.020 (1.005-1.035) Urine Protein Trace H (<30 mg/dL) mg/dL Urine Glucose (UA) >=1000 (NEGATIVE) mg/dL Urine Ketones Trace H (NEGATIVE) mg/dL Urine Blood Trace-lysed H (NEGATIVE) Urine Nitrate Negative (NEGATIVE) Urine Bilirubin Negative (NEGATIVE) Urine Urobilinogen 0.2 (<1 E.U./dL) E.U./dL Ur Leukocyte Esterase Negative (NEGATIVE) Murray/uL Urine RBC 0 - 2 (0-2) /hpf Urine WBC 0 - 2 (0-6) /hpf Ur Epithelial Cells 1 - 3 (0-5) /hpf Urine Bacteria Trace (NONE) /hpf 06/13/18 06/13/18 06/13/18 Range/Units 04:26 03:55 02:23 WBC (4.5-11.0) 10^3/uL RBC (3.5-6.1) 10^6/uL Hgb (12.0-16.0) g/dL Hct (36.0-48.0) % MCV (80.0-105.0) fl MCH (25.0-35.0) pg MCHC (31.0-37.0) g/dl RDW (11.5-14.5) % Plt Count (120.0-450.0) 10^3/uL MPV (7.0-11.0) fl Neut % (Auto) (50.0-68.0) % Lymph % (Auto) (22.0-35.0) % Boundary % (Auto) (1.0-6.0) % Eos % (Auto) (1.5-5.0) % Baso % (Auto) (0.0-3.0) % Lymph # (Auto) (1.2-3.4) Bound[place] # (Auto) (0.1-0.6) Eos # (Auto) (0.0-0.7) Baso # (Auto) (0.0-2.0) K/mm3 Absolute Neuts (auto) (1.4-6.5) Neutrophils % (Manual) (50.0-70.0) % Band Neutrophils % (0-2) % Lymphocytes % (Manual) (22.0-35.0) % Monocytes % (Manual) (1.0-6.0) % Platelet Evaluation (NORMAL) pO2 (30-55) mm/Hg VBG pH (7.32-7.43) VBG pCO2 (40-60) VBG HCO3 (21-28) mmol/l VBG Total CO2 (22-28) mmol.L VBG O2 Sat (Calc) (40-65) % VBG Base Excess (0.0-2.0) mmol/L VBG Potassium (3.6-5.2) mmol/L Sodium (132-148) mmol/L Chloride (98-107) mmol/L Glucose (65-105) mg/dl Lactate (0.7-2.1) mmol/L FiO2 % Crit Value Called To Crit Value Called By Blood Gas Notified Time Potassium (3.6-5.0) mmol/L Carbon Dioxide (21-33) mmol/L Anion Gap (10-20) BUN (7-21) mg/dL Creatinine (0.7-1.2) mg/dl Est GFR ( Amer) Est GFR (Non-Af Amer) POC Glucose (mg/dL) 145 H 181 H 249 H (65-110) mg/dL Random Glucose (70-110) mg/dL Calcium (8.4-10.5) mg/dL Magnesium (1.7-2.2) mg/dL Total Bilirubin (0.2-1.3) mg/dL AST (14-36) U/L ALT (7-56) U/L Alkaline Phosphatase (38-126) U/L Total Protein (5.8-8.3) g/dL Albumin (3.0-4.8) g/dL Globulin gm/dL Albumin/Globulin Ratio (1.1-1.8) Free T4 (0.78-2.19) ng/dL TSH 3rd Generation (0.46-4.68) mIU/mL Venous Blood Potassium (3.6-5.2) mmol/L Urine Color (YELLOW) Urine Appearance (CLEAR) Urine pH (4.7-8.0) Ur Specific [place] (1.005-1.035) Urine Protein (<30 mg/dL) mg/dL Urine Glucose (UA) (NEGATIVE) mg/dL Urine Ketones (NEGATIVE) mg/dL Urine Blood (NEGATIVE) Urine Nitrate (NEGATIVE) Urine Bilirubin (NEGATIVE) Urine Urobilinogen (<1 E.U./dL) E.U./dL Ur Leukocyte Esterase (NEGATIVE) Murray/uL Urine RBC (0-2) /hpf Urine WBC (0-6) /hpf Ur Epithelial Cells (0-5) /hpf Urine Bacteria (NONE) /hpf 06/13/18 06/13/18 06/13/18 Range/Units 01:10 01:10 00:34 WBC (4.5-11.0) 10^3/uL RBC (3.5-6.1) 10^6/uL Hgb (12.0-16.0) g/dL Hct (36.0-48.0) % MCV (80.0-105.0) fl MCH (25.0-35.0) pg MCHC (31.0-37.0) g/dl RDW (11.5-14.5) % Plt Count (120.0-450.0) 10^3/uL MPV (7.0-11.0) fl Neut % (Auto) (50.0-68.0) % Lymph % (Auto) (22.0-35.0) % Bound[place] % (Auto) (1.0-6.0) % Eos % (Auto) (1.5-5.0) % Baso % (Auto) (0.0-3.0) % Lymph # (Auto) (1.2-3.4) Bound[place] # (Auto) (0.1-0.6) Eos # (Auto) (0.0-0.7) Baso # (Auto) (0.0-2.0) K/mm3 Absolute Neuts (auto) (1.4-6.5) Neutrophils % (Manual) (50.0-70.0) % Band Neutrophils % (0-2) % Lymphocytes % (Manual) (22.0-35.0) % Monocytes % (Manual) (1.0-6.0) % Platelet Evaluation (NORMAL) pO2 31 (30-55) mm/Hg VBG pH 7.24 L (7.32-7.43) VBG pCO2 38.0 L (40-60) VBG HCO3 16.3 L (21-28) mmol/l VBG Total CO2 17.5 L (22-28) mmol.L VBG O2 Sat (Calc) 56.5 (40-65) % VBG Base Excess -10.4 L (0.0-2.0) mmol/L VBG Potassium 3.8 (3.6-5.2) mmol/L Sodium 142.0 139 (132-148) mmol/L Chloride 110.0 H 114 H (98-107) mmol/L Glucose 366 H (65-105) mg/dl Lactate 4.8 H* (0.7-2.1) mmol/L FiO2 21.0 % Crit Value Called To Ana smallwood rn icu Crit Value Called By [facility] Blood Gas Notified Time 151 Potassium 4.0 (3.6-5.0) mmol/L Carbon Dioxide 17 L (21-33) mmol/L Anion Gap 12 (10-20) BUN 19 (7-21) mg/dL Creatinine 1.4 H (0.7-1.2) mg/dl Est GFR ( Amer) 45 Est GFR (Non-Af Amer) 37 POC Glucose (mg/dL) 448 H* (65-110) mg/dL Random Glucose 330 H* D (70-110) mg/dL Calcium 7.8 L (8.4-10.5) mg/dL Magnesium (1.7-2.2) mg/dL Total Bilirubin (0.2-1.3) mg/dL AST (14-36) U/L ALT (7-56) U/L Alkaline Phosphatase (38-126) U/L Total Protein (5.8-8.3) g/dL Albumin (3.0-4.8) g/dL Globulin gm/dL Albumin/Globulin Ratio (1.1-1.8) Free T4 (0.78-2.19) ng/dL TSH 3rd Generation (0.46-4.68) mIU/mL Venous Blood Potassium 3.8 (3.6-5.2) mmol/L Urine Color (YELLOW) Urine Appearance (CLEAR) Urine pH (4.7-8.0) Ur Specific [place] (1.005-1.035) Urine Protein (<30 mg/dL) mg/dL Urine Glucose (UA) (NEGATIVE) mg/dL Urine Ketones (NEGATIVE) mg/dL Urine Blood (NEGATIVE) Urine Nitrate (NEGATIVE) Urine Bilirubin (NEGATIVE) Urine Urobilinogen (<1 E.U./dL) E.U./dL Ur Leukocyte Esterase (NEGATIVE) Murray/uL Urine RBC (0-2) /hpf Urine WBC (0-6) /hpf Ur Epithelial Cells (0-5) /hpf Urine Bacteria (NONE) /hpf 06/12/18 06/12/18 06/12/18 Range/Units 22:52 21:50 21:50 WBC (4.5-11.0) 10^3/uL RBC (3.5-6.1) 10^6/uL Hgb (12.0-16.0) g/dL Hct (36.0-48.0) % MCV (80.0-105.0) fl MCH (25.0-35.0) pg MCHC (31.0-37.0) g/dl RDW (11.5-14.5) % Plt Count (120.0-450.0) 10^3/uL MPV (7.0-11.0) fl Neut % (Auto) (50.0-68.0) % Lymph % (Auto) (22.0-35.0) % Bound[place] % (Auto) (1.0-6.0) % Eos % (Auto) (1.5-5.0) % Baso % (Auto) (0.0-3.0) % Lymph # (Auto) (1.2-3.4) [place] # (Auto) (0.1-0.6) Eos # (Auto) (0.0-0.7) Baso # (Auto) (0.0-2.0) K/mm3 Absolute Neuts (auto) (1.4-6.5) Neutrophils % (Manual) (50.0-70.0) % Band Neutrophils % (0-2) % Lymphocytes % (Manual) (22.0-35.0) % Monocytes % (Manual) (1.0-6.0) % Platelet Evaluation (NORMAL) pO2 50 (30-55) mm/Hg VBG pH 7.24 L (7.32-7.43) VBG pCO2 45.0 (40-60) VBG HCO3 19.3 L (21-28) mmol/l VBG Total CO2 20.7 L (22-28) mmol.L VBG O2 Sat (Calc) 85.8 H (40-65) % VBG Base Excess -8.0 L (0.0-2.0) mmol/L VBG Potassium 4.8 (3.6-5.2) mmol/L Sodium 133 134.0 (132-148) mmol/L Chloride 99 95.0 L (98-107) mmol/L Glucose > 750 H* (65-105) mg/dl Lactate 4.1 H* (0.7-2.1) mmol/L FiO2 21.0 % Crit Value Called To Arian valerio Crit Value Called By [facility] Blood Gas Notified Time 2220 Potassium 4.7 (3.6-5.0) mmol/L Carbon Dioxide 19 L (21-33) mmol/L Anion Gap 20 (10-20) BUN 22 H (7-21) mg/dL Creatinine 1.7 H (0.7-1.2) mg/dl Est GFR ( Amer) 36 Est GFR (Non-Af Amer) 29 POC Glucose (mg/dL) > 500 H* (65-110) mg/dL Random Glucose 682 H* D (70-110) mg/dL Calcium 9.6 (8.4-10.5) mg/dL Magnesium 1.9 (1.7-2.2) mg/dL Total Bilirubin 0.7 (0.2-1.3) mg/dL AST 17 (14-36) U/L ALT 9 (7-56) U/L Alkaline Phosphatase 147 H (38-126) U/L Total Protein 7.1 (5.8-8.3) g/dL Albumin 4.1 (3.0-4.8) g/dL Globulin 3.0 gm/dL Albumin/Globulin Ratio 1.4 (1.1-1.8) Free T4 (0.78-2.19) ng/dL TSH 3rd Generation (0.46-4.68) mIU/mL Venous Blood Potassium 4.8 (3.6-5.2) mmol/L Urine Color (YELLOW) Urine Appearance (CLEAR) Urine pH (4.7-8.0) Ur Specific [place] (1.005-1.035) Urine Protein (<30 mg/dL) mg/dL Urine Glucose (UA) (NEGATIVE) mg/dL Urine Ketones (NEGATIVE) mg/dL Urine Blood (NEGATIVE) Urine Nitrate (NEGATIVE) Urine Bilirubin (NEGATIVE) Urine Urobilinogen (<1 E.U./dL) E.U./dL Ur Leukocyte Esterase (NEGATIVE) Murray/uL Urine RBC (0-2) /hpf Urine WBC (0-6) /hpf Ur Epithelial Cells (0-5) /hpf Urine Bacteria (NONE) /hpf 06/12/18 Range/Units 21:50 WBC 13.7 H (4.5-11.0) 10^3/uL RBC 4.77 (3.5-6.1) 10^6/uL Hgb 12.9 (12.0-16.0) g/dL Hct 40.4 (36.0-48.0) % MCV 84.7 (80.0-105.0) fl MCH 27.0 (25.0-35.0) pg MCHC 31.9 (31.0-37.0) g/dl RDW 13.7 (11.5-14.5) % Plt Count 324 (120.0-450.0) 10^3/uL MPV 10.2 (7.0-11.0) fl Neut % (Auto) 92.0 H (50.0-68.0) % Lymph % (Auto) 4.2 L (22.0-35.0) % Bound[place] % (Auto) 3.6 (1.0-6.0) % Eos % (Auto) 0.1 L (1.5-5.0) % Baso % (Auto) 0.1 (0.0-3.0) % Lymph # (Auto) 0.6 L (1.2-3.4) Bound[place] # (Auto) 0.5 (0.1-0.6) Eos # (Auto) 0.0 (0.0-0.7) Baso # (Auto) 0.01 (0.0-2.0) K/mm3 Absolute Neuts (auto) 12.62 H (1.4-6.5) Neutrophils % (Manual) 90 H (50.0-70.0) % Band Neutrophils % 4 H (0-2) % Lymphocytes % (Manual) 3 L (22.0-35.0) % Monocytes % (Manual) 3 (1.0-6.0) % Platelet Evaluation Normal (NORMAL) pO2 (30-55) mm/Hg VBG pH (7.32-7.43) VBG pCO2 (40-60) VBG HCO3 (21-28) mmol/l VBG Total CO2 (22-28) mmol.L VBG O2 Sat (Calc) (40-65) % VBG Base Excess (0.0-2.0) mmol/L VBG Potassium (3.6-5.2) mmol/L Sodium (132-148) mmol/L Chloride (98-107) mmol/L Glucose (65-105) mg/dl Lactate (0.7-2.1) mmol/L FiO2 % Crit Value Called To Crit Value Called By Blood Gas Notified Time Potassium (3.6-5.0) mmol/L Carbon Dioxide (21-33) mmol/L Anion Gap (10-20) BUN (7-21) mg/dL Creatinine (0.7-1.2) mg/dl Est GFR ( Amer) Est GFR (Non-Af Amer) POC Glucose (mg/dL) (65-110) mg/dL Random Glucose (70-110) mg/dL Calcium (8.4-10.5) mg/dL Magnesium (1.7-2.2) mg/dL Total Bilirubin (0.2-1.3) mg/dL AST (14-36) U/L ALT (7-56) U/L Alkaline Phosphatase (38-126) U/L Total Protein (5.8-8.3) g/dL Albumin (3.0-4.8) g/dL Globulin gm/dL Albumin/Globulin Ratio (1.1-1.8) Free T4 (0.78-2.19) ng/dL TSH 3rd Generation (0.46-4.68) mIU/mL Venous Blood Potassium (3.6-5.2) mmol/L Urine Color (YELLOW) Urine Appearance (CLEAR) Urine pH (4.7-8.0) Ur Specific [place] (1.005-1.035) Urine Protein (<30 mg/dL) mg/dL Urine Glucose (UA) (NEGATIVE) mg/dL Urine Ketones (NEGATIVE) mg/dL Urine Blood (NEGATIVE) Urine Nitrate (NEGATIVE) Urine Bilirubin (NEGATIVE) Urine Urobilinogen (<1 E.U./dL) E.U./dL Ur Leukocyte Esterase (NEGATIVE) Murray/uL Urine RBC (0-2) /hpf Urine WBC (0-6) /hpf Ur Epithelial Cells (0-5) /hpf Urine Bacteria (NONE) /hpf Laboratory Results - last 24 hr 06/12/18 06/12/18 06/12/18 21:50 21:50 21:50 WBC 13.7 H RBC 4.77 Hgb 12.9 Hct 40.4 MCV 84.7 MCH 27.0 MCHC 31.9 RDW 13.7 Plt Count 324 MPV 10.2 Neut % (Auto) 92.0 H Lymph % (Auto) 4.2 L [place] % (Auto) 3.6 Eos % (Auto) 0.1 L Baso % (Auto) 0.1 Lymph # (Auto) 0.6 L [place] # (Auto) 0.5 Eos # (Auto) 0.0 Baso # (Auto) 0.01 Absolute Neuts (auto) 12.62 H Neutrophils % (Manual) 90 H Band Neutrophils % 4 H Lymphocytes % (Manual) 3 L Monocytes % (Manual) 3 Platelet Evaluation Normal pO2 50 VBG pH 7.24 L VBG pCO2 45.0 VBG HCO3 19.3 L VBG Total CO2 20.7 L VBG O2 Sat (Calc) 85.8 H VBG Base Excess -8.0 L VBG Potassium 4.8 Sodium 134.0 133 Chloride 95.0 L 99 Glucose > 750 H* Lactate 4.1 H* FiO2 21.0 Crit Value Called To Arian valerio Crit Value Called By [facility] Blood Gas Notified Time 2220 Potassium 4.7 Carbon Dioxide 19 L Anion Gap 20 BUN 22 H Creatinine 1.7 H Est GFR ( Amer) 36 Est GFR (Non-Af Amer) 29 POC Glucose (mg/dL) Random Glucose 682 H* D Calcium 9.6 Magnesium 1.9 Total Bilirubin 0.7 AST 17 ALT 9 Alkaline Phosphatase 147 H Total Protein 7.1 Albumin 4.1 Globulin 3.0 Albumin/Globulin Ratio 1.4 Free T4 TSH 3rd Generation Venous Blood Potassium 4.8 Urine Color Urine Appearance Urine pH Ur Specific [place] Urine Protein Urine Glucose (UA) Urine Ketones Urine Blood Urine Nitrate Urine Bilirubin Urine Urobilinogen Ur Leukocyte Esterase Urine RBC Urine WBC Ur Epithelial Cells Urine Bacteria 06/12/18 06/13/18 06/13/18 22:52 00:34 01:10 WBC RBC Hgb Hct MCV MCH MCHC RDW Plt Count MPV Neut % (Auto) Lymph % (Auto) [place] % (Auto) Eos % (Auto) Baso % (Auto) Lymph # (Auto) [place] # (Auto) Eos # (Auto) Baso # (Auto) Absolute Neuts (auto) Neutrophils % (Manual) Band Neutrophils % Lymphocytes % (Manual) Monocytes % (Manual) Platelet Evaluation pO2 VBG pH VBG pCO2 VBG HCO3 VBG Total CO2 VBG O2 Sat (Calc) VBG Base Excess VBG Potassium Sodium 139 Chloride 114 H Glucose Lactate FiO2 Crit Value Called To Crit Value Called By Blood Gas Notified Time Potassium 4.0 Carbon Dioxide 17 L Anion Gap 12 BUN 19 Creatinine 1.4 H Est GFR ( Amer) 45 Est GFR (Non-Af Amer) 37 POC Glucose (mg/dL) > 500 H* 448 H* Random Glucose 330 H* D Calcium 7.8 L Magnesium Total Bilirubin AST ALT Alkaline Phosphatase Total Protein Albumin Globulin Albumin/Globulin Ratio Free T4 TSH 3rd Generation Venous Blood Potassium Urine Color Urine Appearance Urine pH Ur Specific [place] Urine Protein Urine Glucose (UA) Urine Ketones Urine Blood Urine Nitrate Urine Bilirubin Urine Urobilinogen Ur Leukocyte Esterase Urine RBC Urine WBC Ur Epithelial Cells Urine Bacteria 06/13/18 06/13/18 06/13/18 01:10 02:23 03:55 WBC RBC Hgb Hct MCV MCH MCHC RDW Plt Count MPV Neut % (Auto) Lymph % (Auto) [place] % (Auto) Eos % (Auto) Baso % (Auto) Lymph # (Auto) [place] # (Auto) Eos # (Auto) Baso # (Auto) Absolute Neuts (auto) Neutrophils % (Manual) Band Neutrophils % Lymphocytes % (Manual) Monocytes % (Manual) Platelet Evaluation pO2 31 VBG pH 7.24 L VBG pCO2 38.0 L VBG HCO3 16.3 L VBG Total CO2 17.5 L VBG O2 Sat (Calc) 56.5 VBG Base Excess -10.4 L VBG Potassium 3.8 Sodium 142.0 Chloride 110.0 H Glucose 366 H Lactate 4.8 H* FiO2 21.0 Crit Value Called To Ana [place] rn icu Crit Value Called By brittney Blood Gas Notified Time 151 Potassium Carbon Dioxide Anion Gap BUN Creatinine Est GFR ( Amer) Est GFR (Non-Af Amer) POC Glucose (mg/dL) 249 H 181 H Random Glucose Calcium Magnesium Total Bilirubin AST ALT Alkaline Phosphatase Total Protein Albumin Globulin Albumin/Globulin Ratio Free T4 TSH 3rd Generation Venous Blood Potassium 3.8 Urine Color Urine Appearance Urine pH Ur Specific [place] Urine Protein Urine Glucose (UA) Urine Ketones Urine Blood Urine Nitrate Urine Bilirubin Urine Urobilinogen Ur Leukocyte Esterase Urine RBC Urine WBC Ur Epithelial Cells Urine Bacteria 06/13/18 06/13/18 06/13/18 04:26 04:55 05:31 WBC RBC Hgb Hct MCV MCH MCHC RDW Plt Count MPV Neut % (Auto) Lymph % (Auto) [place] % (Auto) Eos % (Auto) Baso % (Auto) Lymph # (Auto) [place] # (Auto) Eos # (Auto) Baso # (Auto) Absolute Neuts (auto) Neutrophils % (Manual) Band Neutrophils % Lymphocytes % (Manual) Monocytes % (Manual) Platelet Evaluation pO2 VBG pH VBG pCO2 VBG HCO3 VBG Total CO2 VBG O2 Sat (Calc) VBG Base Excess VBG Potassium Sodium Chloride Glucose Lactate FiO2 Crit Value Called To Crit Value Called By Blood Gas Notified Time Potassium Carbon Dioxide Anion Gap BUN Creatinine Est GFR ( Amer) Est GFR (Non-Af Amer) POC Glucose (mg/dL) 145 H 152 H Random Glucose Calcium Magnesium Total Bilirubin AST ALT Alkaline Phosphatase Total Protein Albumin Globulin Albumin/Globulin Ratio Free T4 TSH 3rd Generation Venous Blood Potassium Urine Color Yellow Urine Appearance Clear Urine pH 6.0 Ur Specific [place] 1.020 Urine Protein Trace H Urine Glucose (UA) >=1000 Urine Ketones Trace H Urine Blood Trace-lysed H Urine Nitrate Negative Urine Bilirubin Negative Urine Urobilinogen 0.2 Ur Leukocyte Esterase Negative Urine RBC 0 - 2 Urine WBC 0 - 2 Ur Epithelial Cells 1 - 3 Urine Bacteria Trace 06/13/18 06/13/18 06/13/18 05:40 05:40 05:40 WBC 10.0 D RBC 4.00 Hgb 10.5 L D Hct 33.5 L MCV 83.8 MCH 26.3 MCHC 31.3 RDW 13.8 Plt Count 273 MPV 10.2 Neut % (Auto) 82.9 H Lymph % (Auto) 11.1 L [place] % (Auto) 5.7 Eos % (Auto) 0.2 L Baso % (Auto) 0.1 Lymph # (Auto) 1.1 L [place] # (Auto) 0.6 Eos # (Auto) 0.0 Baso # (Auto) 0.01 Absolute Neuts (auto) 8.25 H Neutrophils % (Manual) Band Neutrophils % Lymphocytes % (Manual) Monocytes % (Manual) Platelet Evaluation pO2 VBG pH VBG pCO2 VBG HCO3 VBG Total CO2 VBG O2 Sat (Calc) VBG Base Excess VBG Potassium Sodium 142 Chloride 115 H Glucose Lactate FiO2 Crit Value Called To Crit Value Called By Blood Gas Notified Time Potassium 3.9 Carbon Dioxide 21 Anion Gap 10 BUN 19 Creatinine 1.4 H Est GFR ( Amer) 45 Est GFR (Non-Af Amer) 37 POC Glucose (mg/dL) Random Glucose 157 H Calcium 8.2 L Magnesium Total Bilirubin AST ALT Alkaline Phosphatase Total Protein Albumin Globulin Albumin/Globulin Ratio Free T4 1.46 TSH 3rd Generation 0.43 L Venous Blood Potassium Urine Color Urine Appearance Urine pH Ur Specific [place] Urine Protein Urine Glucose (UA) Urine Ketones Urine Blood Urine Nitrate Urine Bilirubin Urine Urobilinogen Ur Leukocyte Esterase Urine RBC Urine WBC Ur Epithelial Cells Urine Bacteria 06/13/18 06:27 WBC RBC Hgb Hct MCV MCH MCHC RDW Plt Count MPV Neut % (Auto) Lymph % (Auto) [place] % (Auto) Eos % (Auto) Baso % (Auto) Lymph # (Auto) [place] # (Auto) Eos # (Auto) Baso # (Auto) Absolute Neuts (auto) Neutrophils % (Manual) Band Neutrophils % Lymphocytes % (Manual) Monocytes % (Manual) Platelet Evaluation pO2 VBG pH VBG pCO2 VBG HCO3 VBG Total CO2 VBG O2 Sat (Calc) VBG Base Excess VBG Potassium Sodium Chloride Glucose Lactate FiO2 Crit Value Called To Crit Value Called By Blood Gas Notified Time Potassium Carbon Dioxide Anion Gap BUN Creatinine Est GFR ( Amer) Est GFR (Non-Af Amer) POC Glucose (mg/dL) 137 H Random Glucose Calcium Magnesium Total Bilirubin AST ALT Alkaline Phosphatase Total Protein Albumin Globulin Albumin/Globulin Ratio Free T4 TSH 3rd Generation Venous Blood Potassium Urine Color Urine Appearance Urine pH Ur Specific [place] Urine Protein Urine Glucose (UA) Urine Ketones Urine Blood Urine Nitrate Urine Bilirubin Urine Urobilinogen Ur Leukocyte Esterase Urine RBC Urine WBC Ur Epithelial Cells Urine Bacteria Radiology Impressions: Radiology Impressions Head CT 06/12/18 22:51 IMPRESSION: No acute intracranial abnormalities EKG/Cardiology Studies: Cardiology / EKG Studies 06/12/18 20:50 EKG [ELECTROCARDIOGRAM] Stat Comment: Reason For Exam: arrythmia Fingerstick Blood Sugar Results: 137 Critical Care Progress Note - Nutrition Nutrition: Nutrition Category Date Time Status Consistent Carbohydrate [DIET] Diets 06/13/18 Breakfast Ordered Assessment/Plan - Assessment and Plan (Free Text) Assessment: 72 year old female with a PMH of Basal cell CA, 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 Patient found to be hyperglycemic likely due to hyperosmolar hyperglycemia syndrome rather than DKA as anion gap is not elevated and bicarb is not low. Nevertheless, due to poor medical c ompliance and likely insulin insensitivity, will admit to ICU for close monitoring. Pts gap has closed and pt is now off of insulin drip. Plan: Neuro: - AOx3 Cardio: - Hx of HTN - Cont home norvasc, lopressor - Cont ASA - Maintain MAP > 65 Pulm: - Maintain O2 > 92% GI: - Carb consistent diet Endo: - ISS - High - Glucose was 137 on last check - Levemir 10 qhs - Pts anion gap is closed - Pt was transitioned off insulin drip Nephro: - Maintain Euvolemia Dispo: Pts VSS, glucose is 137 and gap is closed and is transitioned off insulin drip. Pt is stable for transfer out of ICU Case seen and discussed with Dr. Charles Shepard, PGY-1 <Steffen Soto - Last Filed: 06/13/18 12:48> CCU Objective - Vital Signs / Intake & Output Vital Signs (Last 4 hours): Vital Signs BP 06/13/18 09:53 135/64 Intake and Output (Last 8hrs): Intake & Output 06/12/18 06/13/18 06/13/18 22:59 06:59 14:59 Intake Total 5362 Output Total 350 Balance 5012 Weight 160 lb 156 lb 12.8 oz Intake: IV 5362 Left Upper arm 5300 Right Antecubital 30 Output: Urine 350 Urine, Voided 350 Other: Voiding Method Diaper # Bowel Movements 1 - Medications Active Medications: Active Medications Generic Name Dose Route Start Last Admin Trade Name Freq PRN Reason Stop Dose Admin Amlodipine Besylate 5 mg 06/13/18 10:00 06/13/18 09:53 Norvasc PO 5 mg DAILY CLAUDY Administration Aspirin 81 mg 06/13/18 10:00 06/13/18 09:50 Aspirin Chewable PO 81 mg DAILY CLAUDY Administration Glimepiride 2 mg 06/13/18 16:30 Amaryl PO ACBD CLAUDY Metronidazole 500 mg in 100 mls @ 100 mls/hr 06/12/18 22:30 06/13/18 05:24 Flagyl IVPB 100 mls/hr Q8 CLAUDY Administration Protocol Dextrose/Sodium Chloride 1,000 mls @ 100 mls/hr 06/13/18 04:45 06/13/18 04:40 Dextrose 5%/0.45% Ns 1000 Ml IV 100 mls/hr .Q10H CLAUDY Administration Insulin Detemir 10 unit 06/13/18 22:00 Levemir SC HS CLAUDY Insulin Human Lispro 0 units 06/13/18 11:30 Humalog High SC ACHS CLAUDY Protocol Metformin HCl 500 mg 06/13/18 18:00 Glucophage PO BID CLAUDY Metoprolol Tartrate 25 mg 06/13/18 22:00 Lopressor PO HS CLAUDY Ondansetron HCl 4 mg 06/12/18 22:23 Zofran Inj IVP Q6H PRN Nausea/Vomiting Pantoprazole Sodium 40 mg 06/13/18 10:00 06/13/18 09:50 Protonix Inj IVP 40 mg DAILY CLAUDY Administration Paroxetine HCl 10 mg 06/13/18 10:00 06/13/18 10:44 Paxil PO 10 mg DAILY CLAUDY Administration - Patient Studies Lab Studies: Lab Studies 06/13/18 06/13/18 06/13/18 Range/Units 11:55 11:45 09:47 WBC (4.5-11.0) 10^3/uL RBC (3.5-6.1) 10^6/uL Hgb (12.0-16.0) g/dL Hct (36.0-48.0) % MCV (80.0-105.0) fl MCH (25.0-35.0) pg MCHC (31.0-37.0) g/dl RDW (11.5-14.5) % Plt Count (120.0-450.0) 10^3/uL MPV (7.0-11.0) fl Neut % (Auto) (50.0-68.0) % Lymph % (Auto) (22.0-35.0) % Bound[place] % (Auto) (1.0-6.0) % Eos % (Auto) (1.5-5.0) % Baso % (Auto) (0.0-3.0) % Lymph # (Auto) (1.2-3.4) Bound[place] # (Auto) (0.1-0.6) Eos # (Auto) (0.0-0.7) Baso # (Auto) (0.0-2.0) K/mm3 Absolute Neuts (auto) (1.4-6.5) Neutrophils % (Manual) (50.0-70.0) % Band Neutrophils % (0-2) % Lymphocytes % (Manual) (22.0-35.0) % Monocytes % (Manual) (1.0-6.0) % Platelet Evaluation (NORMAL) pO2 (30-55) mm/Hg VBG pH (7.32-7.43) VBG pCO2 (40-60) VBG HCO3 (21-28) mmol/l VBG Total CO2 (22-28) mmol.L VBG O2 Sat (Calc) (40-65) % VBG Base Excess (0.0-2.0) mmol/L VBG Potassium (3.6-5.2) mmol/L Sodium 139 (132-148) mmol/L Chloride 113 H (98-107) mmol/L Glucose (65-105) mg/dl Lactate (0.7-2.1) mmol/L FiO2 % Crit Value Called To Crit Value Called By Blood Gas Notified Time Potassium 4.1 (3.6-5.0) mmol/L Carbon Dioxide 21 (21-33) mmol/L Anion Gap 10 (10-20) BUN 18 (7-21) mg/dL Creatinine 1.4 H (0.7-1.2) mg/dl Est GFR ( Amer) 45 Est GFR (Non-Af Amer) 37 POC Glucose (mg/dL) 309 H 255 H (65-110) mg/dL Random Glucose 292 H (70-110) mg/dL Calcium 8.0 L (8.4-10.5) mg/dL Magnesium (1.7-2.2) mg/dL Total Bilirubin (0.2-1.3) mg/dL AST (14-36) U/L ALT (7-56) U/L Alkaline Phosphatase (38-126) U/L Total Protein (5.8-8.3) g/dL Albumin (3.0-4.8) g/dL Globulin gm/dL Albumin/Globulin Ratio (1.1-1.8) Free T4 (0.78-2.19) ng/dL TSH 3rd Generation (0.46-4.68) mIU/mL Venous Blood Potassium (3.6-5.2) mmol/L Urine Color (YELLOW) Urine Appearance (CLEAR) Urine pH (4.7-8.0) Ur Specific [place] (1.005-1.035) Urine Protein (<30 mg/dL) mg/dL Urine Glucose (UA) (NEGATIVE) mg/dL Urine Ketones (NEGATIVE) mg/dL Urine Blood (NEGATIVE) Urine Nitrate (NEGATIVE) Urine Bilirubin (NEGATIVE) Urine Urobilinogen (<1 E.U./dL) E.U./dL Ur Leukocyte Esterase (NEGATIVE) Murray/uL Urine RBC (0-2) /hpf Urine WBC (0-6) /hpf Ur Epithelial Cells (0-5) /hpf Urine Bacteria (NONE) /hpf 06/13/18 06/13/18 06/13/18 Range/Units 09:40 06:27 05:40 WBC (4.5-11.0) 10^3/uL RBC (3.5-6.1) 10^6/uL Hgb (12.0-16.0) g/dL Hct (36.0-48.0) % MCV (80.0-105.0) fl MCH (25.0-35.0) pg MCHC (31.0-37.0) g/dl RDW (11.5-14.5) % Plt Count (120.0-450.0) 10^3/uL MPV (7.0-11.0) fl Neut % (Auto) (50.0-68.0) % Lymph % (Auto) (22.0-35.0) % Bound[place] % (Auto) (1.0-6.0) % Eos % (Auto) (1.5-5.0) % Baso % (Auto) (0.0-3.0) % Lymph # (Auto) (1.2-3.4) Bound[place] # (Auto) (0.1-0.6) Eos # (Auto) (0.0-0.7) Baso # (Auto) (0.0-2.0) K/mm3 Absolute Neuts (auto) (1.4-6.5) Neutrophils % (Manual) (50.0-70.0) % Band Neutrophils % (0-2) % Lymphocytes % (Manual) (22.0-35.0) % Monocytes % (Manual) (1.0-6.0) % Platelet Evaluation (NORMAL) pO2 (30-55) mm/Hg VBG pH (7.32-7.43) VBG pCO2 (40-60) VBG HCO3 (21-28) mmol/l VBG Total CO2 (22-28) mmol.L VBG O2 Sat (Calc) (40-65) % VBG Base Excess (0.0-2.0) mmol/L VBG Potassium (3.6-5.2) mmol/L Sodium 140 142 (132-148) mmol/L Chloride 114 H 115 H (98-107) mmol/L Glucose (65-105) mg/dl Lactate (0.7-2.1) mmol/L FiO2 % Crit Value Called To Crit Value Called By Blood Gas Notified Time Potassium 4.0 3.9 (3.6-5.0) mmol/L Carbon Dioxide 21 21 (21-33) mmol/L Anion Gap 9 L 10 (10-20) BUN 18 19 (7-21) mg/dL Creatinine 1.4 H 1.4 H (0.7-1.2) mg/dl Est GFR ( Amer) 45 45 Est GFR (Non-Af Amer) 37 37 POC Glucose (mg/dL) 137 H (65-110) mg/dL Random Glucose 260 H 157 H (70-110) mg/dL Calcium 8.0 L 8.2 L (8.4-10.5) mg/dL Magnesium (1.7-2.2) mg/dL Total Bilirubin (0.2-1.3) mg/dL AST (14-36) U/L ALT (7-56) U/L Alkaline Phosphatase (38-126) U/L Total Protein (5.8-8.3) g/dL Albumin (3.0-4.8) g/dL Globulin gm/dL Albumin/Globulin Ratio (1.1-1.8) Free T4 (0.78-2.19) ng/dL TSH 3rd Generation (0.46-4.68) mIU/mL Venous Blood Potassium (3.6-5.2) mmol/L Urine Color (YELLOW) Urine Appearance (CLEAR) Urine pH (4.7-8.0) Ur Specific [place] (1.005-1.035) Urine Protein (<30 mg/dL) mg/dL Urine Glucose (UA) (NEGATIVE) mg/dL Urine Ketones (NEGATIVE) mg/dL Urine Blood (NEGATIVE) Urine Nitrate (NEGATIVE) Urine Bilirubin (NEGATIVE) Urine Urobilinogen (<1 E.U./dL) E.U./dL Ur Leukocyte Esterase (NEGATIVE) Murray/uL Urine RBC (0-2) /hpf Urine WBC (0-6) /hpf Ur Epithelial Cells (0-5) /hpf Urine Bacteria (NONE) /hpf 06/13/18 06/13/18 06/13/18 Range/Units 05:40 05:40 05:31 WBC 10.0 D (4.5-11.0) 10^3/uL RBC 4.00 (3.5-6.1) 10^6/uL Hgb 10.5 L D (12.0-16.0) g/dL Hct 33.5 L (36.0-48.0) % MCV 83.8 (80.0-105.0) fl MCH 26.3 (25.0-35.0) pg MCHC 31.3 (31.0-37.0) g/dl RDW 13.8 (11.5-14.5) % Plt Count 273 (120.0-450.0) 10^3/uL MPV 10.2 (7.0-11.0) fl Neut % (Auto) 82.9 H (50.0-68.0) % Lymph % (Auto) 11.1 L (22.0-35.0) % Boundary % (Auto) 5.7 (1.0-6.0) % Eos % (Auto) 0.2 L (1.5-5.0) % Baso % (Auto) 0.1 (0.0-3.0) % Lymph # (Auto) 1.1 L (1.2-3.4) Bound[place] # (Auto) 0.6 (0.1-0.6) Eos # (Auto) 0.0 (0.0-0.7) Baso # (Auto) 0.01 (0.0-2.0) K/mm3 Absolute Neuts (auto) 8.25 H (1.4-6.5) Neutrophils % (Manual) (50.0-70.0) % Band Neutrophils % (0-2) % Lymphocytes % (Manual) (22.0-35.0) % Monocytes % (Manual) (1.0-6.0) % Platelet Evaluation (NORMAL) pO2 (30-55) mm/Hg VBG pH (7.32-7.43) VBG pCO2 (40-60) VBG HCO3 (21-28) mmol/l VBG Total CO2 (22-28) mmol.L VBG O2 Sat (Calc) (40-65) % VBG Base Excess (0.0-2.0) mmol/L VBG Potassium (3.6-5.2) mmol/L Sodium (132-148) mmol/L Chloride (98-107) mmol/L Glucose (65-105) mg/dl Lactate (0.7-2.1) mmol/L FiO2 % Crit Value Called To Crit Value Called By Blood Gas Notified Time Potassium (3.6-5.0) mmol/L Carbon Dioxide (21-33) mmol/L Anion Gap (10-20) BUN (7-21) mg/dL Creatinine (0.7-1.2) mg/dl Est GFR ( Amer) Est GFR (Non-Af Amer) POC Glucose (mg/dL) 152 H (65-110) mg/dL Random Glucose (70-110) mg/dL Calcium (8.4-10.5) mg/dL Magnesium (1.7-2.2) mg/dL Total Bilirubin (0.2-1.3) mg/dL AST (14-36) U/L ALT (7-56) U/L Alkaline Phosphatase (38-126) U/L Total Protein (5.8-8.3) g/dL Albumin (3.0-4.8) g/dL Globulin gm/dL Albumin/Globulin Ratio (1.1-1.8) Free T4 1.46 (0.78-2.19) ng/dL TSH 3rd Generation 0.43 L (0.46-4.68) mIU/mL Venous Blood Potassium (3.6-5.2) mmol/L Urine Color (YELLOW) Urine Appearance (CLEAR) Urine pH (4.7-8.0) Ur Specific [place] (1.005-1.035) Urine Protein (<30 mg/dL) mg/dL Urine Glucose (UA) (NEGATIVE) mg/dL Urine Ketones (NEGATIVE) mg/dL Urine Blood (NEGATIVE) Urine Nitrate (NEGATIVE) Urine Bilirubin (NEGATIVE) Urine Urobilinogen (<1 E.U./dL) E.U./dL Ur Leukocyte Esterase (NEGATIVE) Murray/uL Urine RBC (0-2) /hpf Urine WBC (0-6) /hpf Ur Epithelial Cells (0-5) /hpf Urine Bacteria (NONE) /hpf 06/13/18 06/13/18 06/13/18 Range/Units 04:55 04:26 03:55 WBC (4.5-11.0) 10^3/uL RBC (3.5-6.1) 10^6/uL Hgb (12.0-16.0) g/dL Hct (36.0-48.0) % MCV (80.0-105.0) fl MCH (25.0-35.0) pg MCHC (31.0-37.0) g/dl RDW (11.5-14.5) % Plt Count (120.0-450.0) 10^3/uL MPV (7.0-11.0) fl Neut % (Auto) (50.0-68.0) % Lymph % (Auto) (22.0-35.0) % Bound[place] % (Auto) (1.0-6.0) % Eos % (Auto) (1.5-5.0) % Baso % (Auto) (0.0-3.0) % Lymph # (Auto) (1.2-3.4) [place] # (Auto) (0.1-0.6) Eos # (Auto) (0.0-0.7) Baso # (Auto) (0.0-2.0) K/mm3 Absolute Neuts (auto) (1.4-6.5) Neutrophils % (Manual) (50.0-70.0) % Band Neutrophils % (0-2) % Lymphocytes % (Manual) (22.0-35.0) % Monocytes % (Manual) (1.0-6.0) % Platelet Evaluation (NORMAL) pO2 (30-55) mm/Hg VBG pH (7.32-7.43) VBG pCO2 (40-60) VBG HCO3 (21-28) mmol/l VBG Total CO2 (22-28) mmol.L VBG O2 Sat (Calc) (40-65) % VBG Base Excess (0.0-2.0) mmol/L VBG Potassium (3.6-5.2) mmol/L Sodium (132-148) mmol/L Chloride (98-107) mmol/L Glucose (65-105) mg/dl Lactate (0.7-2.1) mmol/L FiO2 % Crit Value Called To Crit Value Called By Blood Gas Notified Time Potassium (3.6-5.0) mmol/L Carbon Dioxide (21-33) mmol/L Anion Gap (10-20) BUN (7-21) mg/dL Creatinine (0.7-1.2) mg/dl Est GFR ( Amer) Est GFR (Non-Af Amer) POC Glucose (mg/dL) 145 H 181 H (65-110) mg/dL Random Glucose (70-110) mg/dL Calcium (8.4-10.5) mg/dL Magnesium (1.7-2.2) mg/dL Total Bilirubin (0.2-1.3) mg/dL AST (14-36) U/L ALT (7-56) U/L Alkaline Phosphatase (38-126) U/L Total Protein (5.8-8.3) g/dL Albumin (3.0-4.8) g/dL Globulin gm/dL Albumin/Globulin Ratio (1.1-1.8) Free T4 (0.78-2.19) ng/dL TSH 3rd Generation (0.46-4.68) mIU/mL Venous Blood Potassium (3.6-5.2) mmol/L Urine Color Yellow (YELLOW) Urine Appearance Clear (CLEAR) Urine pH 6.0 (4.7-8.0) Ur Specific [place] 1.020 (1.005-1.035) Urine Protein Trace H (<30 mg/dL) mg/dL Urine Glucose (UA) >=1000 (NEGATIVE) mg/dL Urine Ketones Trace H (NEGATIVE) mg/dL Urine Blood Trace-lysed H (NEGATIVE) Urine Nitrate Negative (NEGATIVE) Urine Bilirubin Negative (NEGATIVE) Urine Urobilinogen 0.2 (<1 E.U./dL) E.U./dL Ur Leukocyte Esterase Negative (NEGATIVE) Murray/uL Urine RBC 0 - 2 (0-2) /hpf Urine WBC 0 - 2 (0-6) /hpf Ur Epithelial Cells 1 - 3 (0-5) /hpf Urine Bacteria Trace (NONE) /hpf 06/13/18 06/13/18 06/13/18 Range/Units 02:23 01:10 01:10 WBC (4.5-11.0) 10^3/uL RBC (3.5-6.1) 10^6/uL Hgb (12.0-16.0) g/dL Hct (36.0-48.0) % MCV (80.0-105.0) fl MCH (25.0-35.0) pg MCHC (31.0-37.0) g/dl RDW (11.5-14.5) % Plt Count (120.0-450.0) 10^3/uL MPV (7.0-11.0) fl Neut % (Auto) (50.0-68.0) % Lymph % (Auto) (22.0-35.0) % Bound[place] % (Auto) (1.0-6.0) % Eos % (Auto) (1.5-5.0) % Baso % (Auto) (0.0-3.0) % Lymph # (Auto) (1.2-3.4) [place] # (Auto) (0.1-0.6) Eos # (Auto) (0.0-0.7) Baso # (Auto) (0.0-2.0) K/mm3 Absolute Neuts (auto) (1.4-6.5) Neutrophils % (Manual) (50.0-70.0) % Band Neutrophils % (0-2) % Lymphocytes % (Manual) (22.0-35.0) % Monocytes % (Manual) (1.0-6.0) % Platelet Evaluation (NORMAL) pO2 31 (30-55) mm/Hg VBG pH 7.24 L (7.32-7.43) VBG pCO2 38.0 L (40-60) VBG HCO3 16.3 L (21-28) mmol/l VBG Total CO2 17.5 L (22-28) mmol.L VBG O2 Sat (Calc) 56.5 (40-65) % VBG Base Excess -10.4 L (0.0-2.0) mmol/L VBG Potassium 3.8 (3.6-5.2) mmol/L Sodium 142.0 139 (132-148) mmol/L Chloride 110.0 H 114 H (98-107) mmol/L Glucose 366 H (65-105) mg/dl Lactate 4.8 H* (0.7-2.1) mmol/L FiO2 21.0 % Crit Value Called To Ana [place] rn icu Crit Value Called By brittney Blood Gas Notified Time 151 Potassium 4.0 (3.6-5.0) mmol/L Carbon Dioxide 17 L (21-33) mmol/L Anion Gap 12 (10-20) BUN 19 (7-21) mg/dL Creatinine 1.4 H (0.7-1.2) mg/dl Est GFR ( Amer) 45 Est GFR (Non-Af Amer) 37 POC Glucose (mg/dL) 249 H (65-110) mg/dL Random Glucose 330 H* D (70-110) mg/dL Calcium 7.8 L (8.4-10.5) mg/dL Magnesium (1.7-2.2) mg/dL Total Bilirubin (0.2-1.3) mg/dL AST (14-36) U/L ALT (7-56) U/L Alkaline Phosphatase (38-126) U/L Total Protein (5.8-8.3) g/dL Albumin (3.0-4.8) g/dL Globulin gm/dL Albumin/Globulin Ratio (1.1-1.8) Free T4 (0.78-2.19) ng/dL TSH 3rd Generation (0.46-4.68) mIU/mL Venous Blood Potassium 3.8 (3.6-5.2) mmol/L Urine Color (YELLOW) Urine Appearance (CLEAR) Urine pH (4.7-8.0) Ur Specific [place] (1.005-1.035) Urine Protein (<30 mg/dL) mg/dL Urine Glucose (UA) (NEGATIVE) mg/dL Urine Ketones (NEGATIVE) mg/dL Urine Blood (NEGATIVE) Urine Nitrate (NEGATIVE) Urine Bilirubin (NEGATIVE) Urine Urobilinogen (<1 E.U./dL) E.U./dL Ur Leukocyte Esterase (NEGATIVE) Murray/uL Urine RBC (0-2) /hpf Urine WBC (0-6) /hpf Ur Epithelial Cells (0-5) /hpf Urine Bacteria (NONE) /hpf 06/13/18 06/12/18 06/12/18 Range/Units 00:34 22:52 21:50 WBC (4.5-11.0) 10^3/uL RBC (3.5-6.1) 10^6/uL Hgb (12.0-16.0) g/dL Hct (36.0-48.0) % MCV (80.0-105.0) fl MCH (25.0-35.0) pg MCHC (31.0-37.0) g/dl RDW (11.5-14.5) % Plt Count (120.0-450.0) 10^3/uL MPV (7.0-11.0) fl Neut % (Auto) (50.0-68.0) % Lymph % (Auto) (22.0-35.0) % [place] % (Auto) (1.0-6.0) % Eos % (Auto) (1.5-5.0) % Baso % (Auto) (0.0-3.0) % Lymph # (Auto) (1.2-3.4) [place] # (Auto) (0.1-0.6) Eos # (Auto) (0.0-0.7) Baso # (Auto) (0.0-2.0) K/mm3 Absolute Neuts (auto) (1.4-6.5) Neutrophils % (Manual) (50.0-70.0) % Band Neutrophils % (0-2) % Lymphocytes % (Manual) (22.0-35.0) % Monocytes % (Manual) (1.0-6.0) % Platelet Evaluation (NORMAL) pO2 (30-55) mm/Hg VBG pH (7.32-7.43) VBG pCO2 (40-60) VBG HCO3 (21-28) mmol/l VBG Total CO2 (22-28) mmol.L VBG O2 Sat (Calc) (40-65) % VBG Base Excess (0.0-2.0) mmol/L VBG Potassium (3.6-5.2) mmol/L Sodium 133 (132-148) mmol/L Chloride 99 (98-107) mmol/L Glucose (65-105) mg/dl Lactate (0.7-2.1) mmol/L FiO2 % Crit Value Called To Crit Value Called By Blood Gas Notified Time Potassium 4.7 (3.6-5.0) mmol/L Carbon Dioxide 19 L (21-33) mmol/L Anion Gap 20 (10-20) BUN 22 H (7-21) mg/dL Creatinine 1.7 H (0.7-1.2) mg/dl Est GFR ( Amer) 36 Est GFR (Non-Af Amer) 29 POC Glucose (mg/dL) 448 H* > 500 H* (65-110) mg/dL Random Glucose 682 H* D (70-110) mg/dL Calcium 9.6 (8.4-10.5) mg/dL Magnesium 1.9 (1.7-2.2) mg/dL Total Bilirubin 0.7 (0.2-1.3) mg/dL AST 17 (14-36) U/L ALT 9 (7-56) U/L Alkaline Phosphatase 147 H (38-126) U/L Total Protein 7.1 (5.8-8.3) g/dL Albumin 4.1 (3.0-4.8) g/dL Globulin 3.0 gm/dL Albumin/Globulin Ratio 1.4 (1.1-1.8) Free T4 (0.78-2.19) ng/dL TSH 3rd Generation (0.46-4.68) mIU/mL Venous Blood Potassium (3.6-5.2) mmol/L Urine Color (YELLOW) Urine Appearance (CLEAR) Urine pH (4.7-8.0) Ur Specific [place] (1.005-1.035) Urine Protein (<30 mg/dL) mg/dL Urine Glucose (UA) (NEGATIVE) mg/dL Urine Ketones (NEGATIVE) mg/dL Urine Blood (NEGATIVE) Urine Nitrate (NEGATIVE) Urine Bilirubin (NEGATIVE) Urine Urobilinogen (<1 E.U./dL) E.U./dL Ur Leukocyte Esterase (NEGATIVE) Murray/uL Urine RBC (0-2) /hpf Urine WBC (0-6) /hpf Ur Epithelial Cells (0-5) /hpf Urine Bacteria (NONE) /hpf 06/12/18 06/12/18 Range/Units 21:50 21:50 WBC 13.7 H (4.5-11.0) 10^3/uL RBC 4.77 (3.5-6.1) 10^6/uL Hgb 12.9 (12.0-16.0) g/dL Hct 40.4 (36.0-48.0) % MCV 84.7 (80.0-105.0) fl MCH 27.0 (25.0-35.0) pg MCHC 31.9 (31.0-37.0) g/dl RDW 13.7 (11.5-14.5) % Plt Count 324 (120.0-450.0) 10^3/uL MPV 10.2 (7.0-11.0) fl Neut % (Auto) 92.0 H (50.0-68.0) % Lymph % (Auto) 4.2 L (22.0-35.0) % [place] % (Auto) 3.6 (1.0-6.0) % Eos % (Auto) 0.1 L (1.5-5.0) % Baso % (Auto) 0.1 (0.0-3.0) % Lymph # (Auto) 0.6 L (1.2-3.4) [place] # (Auto) 0.5 (0.1-0.6) Eos # (Auto) 0.0 (0.0-0.7) Baso # (Auto) 0.01 (0.0-2.0) K/mm3 Absolute Neuts (auto) 12.62 H (1.4-6.5) Neutrophils % (Manual) 90 H (50.0-70.0) % Band Neutrophils % 4 H (0-2) % Lymphocytes % (Manual) 3 L (22.0-35.0) % Monocytes % (Manual) 3 (1.0-6.0) % Platelet Evaluation Normal (NORMAL) pO2 50 (30-55) mm/Hg VBG pH 7.24 L (7.32-7.43) VBG pCO2 45.0 (40-60) VBG HCO3 19.3 L (21-28) mmol/l VBG Total CO2 20.7 L (22-28) mmol.L VBG O2 Sat (Calc) 85.8 H (40-65) % VBG Base Excess -8.0 L (0.0-2.0) mmol/L VBG Potassium 4.8 (3.6-5.2) mmol/L Sodium 134.0 (132-148) mmol/L Chloride 95.0 L (98-107) mmol/L Glucose > 750 H* (65-105) mg/dl Lactate 4.1 H* (0.7-2.1) mmol/L FiO2 21.0 % Crit Value Called To Arian valerio Crit Value Called By [facility] Blood Gas Notified Time 2220 Potassium (3.6-5.0) mmol/L Carbon Dioxide (21-33) mmol/L Anion Gap (10-20) BUN (7-21) mg/dL Creatinine (0.7-1.2) mg/dl Est GFR ( Amer) Est GFR (Non-Af Amer) POC Glucose (mg/dL) (65-110) mg/dL Random Glucose (70-110) mg/dL Calcium (8.4-10.5) mg/dL Magnesium (1.7-2.2) mg/dL Total Bilirubin (0.2-1.3) mg/dL AST (14-36) U/L ALT (7-56) U/L Alkaline Phosphatase (38-126) U/L Total Protein (5.8-8.3) g/dL Albumin (3.0-4.8) g/dL Globulin gm/dL Albumin/Globulin Ratio (1.1-1.8) Free T4 (0.78-2.19) ng/dL TSH 3rd Generation (0.46-4.68) mIU/mL Venous Blood Potassium 4.8 (3.6-5.2) mmol/L Urine Color (YELLOW) Urine Appearance (CLEAR) Urine pH (4.7-8.0) Ur Specific [place] (1.005-1.035) Urine Protein (<30 mg/dL) mg/dL Urine Glucose (UA) (NEGATIVE) mg/dL Urine Ketones (NEGATIVE) mg/dL Urine Blood (NEGATIVE) Urine Nitrate (NEGATIVE) Urine Bilirubin (NEGATIVE) Urine Urobilinogen (<1 E.U./dL) E.U./dL Ur Leukocyte Esterase (NEGATIVE) Murray/uL Urine RBC (0-2) /hpf Urine WBC (0-6) /hpf Ur Epithelial Cells (0-5) /hpf Urine Bacteria (NONE) /hpf Laboratory Results - last 24 hr 06/12/18 06/12/18 06/12/18 21:50 21:50 21:50 WBC 13.7 H RBC 4.77 Hgb 12.9 Hct 40.4 MCV 84.7 MCH 27.0 MCHC 31.9 RDW 13.7 Plt Count 324 MPV 10.2 Neut % (Auto) 92.0 H Lymph % (Auto) 4.2 L [place] % (Auto) 3.6 Eos % (Auto) 0.1 L Baso % (Auto) 0.1 Lymph # (Auto) 0.6 L [place] # (Auto) 0.5 Eos # (Auto) 0.0 Baso # (Auto) 0.01 Absolute Neuts (auto) 12.62 H Neutrophils % (Manual) 90 H Band Neutrophils % 4 H Lymphocytes % (Manual) 3 L Monocytes % (Manual) 3 Platelet Evaluation Normal pO2 50 VBG pH 7.24 L VBG pCO2 45.0 VBG HCO3 19.3 L VBG Total CO2 20.7 L VBG O2 Sat (Calc) 85.8 H VBG Base Excess -8.0 L VBG Potassium 4.8 Sodium 134.0 133 Chloride 95.0 L 99 Glucose > 750 H* Lactate 4.1 H* FiO2 21.0 Crit Value Called To Arian valerio Crit Value Called By Atc Blood Gas Notified Time 2220 Potassium 4.7 Carbon Dioxide 19 L Anion Gap 20 BUN 22 H Creatinine 1.7 H Est GFR ( Amer) 36 Est GFR (Non-Af Amer) 29 POC Glucose (mg/dL) Random Glucose 682 H* D Calcium 9.6 Magnesium 1.9 Total Bilirubin 0.7 AST 17 ALT 9 Alkaline Phosphatase 147 H Total Protein 7.1 Albumin 4.1 Globulin 3.0 Albumin/Globulin Ratio 1.4 Free T4 TSH 3rd Generation Venous Blood Potassium 4.8 Urine Color Urine Appearance Urine pH Ur Specific [place] Urine Protein Urine Glucose (UA) Urine Ketones Urine Blood Urine Nitrate Urine Bilirubin Urine Urobilinogen Ur Leukocyte Esterase Urine RBC Urine WBC Ur Epithelial Cells Urine Bacteria 06/12/18 06/13/18 06/13/18 22:52 00:34 01:10 WBC RBC Hgb Hct MCV MCH MCHC RDW Plt Count MPV Neut % (Auto) Lymph % (Auto) [place] % (Auto) Eos % (Auto) Baso % (Auto) Lymph # (Auto) [place] # (Auto) Eos # (Auto) Baso # (Auto) Absolute Neuts (auto) Neutrophils % (Manual) Band Neutrophils % Lymphocytes % (Manual) Monocytes % (Manual) Platelet Evaluation pO2 VBG pH VBG pCO2 VBG HCO3 VBG Total CO2 VBG O2 Sat (Calc) VBG Base Excess VBG Potassium Sodium 139 Chloride 114 H Glucose Lactate FiO2 Crit Value Called To Crit Value Called By Blood Gas Notified Time Potassium 4.0 Carbon Dioxide 17 L Anion Gap 12 BUN 19 Creatinine 1.4 H Est GFR ( Amer) 45 Est GFR (Non-Af Amer) 37 POC Glucose (mg/dL) > 500 H* 448 H* Random Glucose 330 H* D Calcium 7.8 L Magnesium Total Bilirubin AST ALT Alkaline Phosphatase Total Protein Albumin Globulin Albumin/Globulin Ratio Free T4 TSH 3rd Generation Venous Blood Potassium Urine Color Urine Appearance Urine pH Ur Specific [place] Urine Protein Urine Glucose (UA) Urine Ketones Urine Blood Urine Nitrate Urine Bilirubin Urine Urobilinogen Ur Leukocyte Esterase Urine RBC Urine WBC Ur Epithelial Cells Urine Bacteria 06/13/18 06/13/18 06/13/18 01:10 02:23 03:55 WBC RBC Hgb Hct MCV MCH MCHC RDW Plt Count MPV Neut % (Auto) Lymph % (Auto) [place] % (Auto) Eos % (Auto) Baso % (Auto) Lymph # (Auto) [place] # (Auto) Eos # (Auto) Baso # (Auto) Absolute Neuts (auto) Neutrophils % (Manual) Band Neutrophils % Lymphocytes % (Manual) Monocytes % (Manual) Platelet Evaluation pO2 31 VBG pH 7.24 L VBG pCO2 38.0 L VBG HCO3 16.3 L VBG Total CO2 17.5 L VBG O2 Sat (Calc) 56.5 VBG Base Excess -10.4 L VBG Potassium 3.8 Sodium 142.0 Chloride 110.0 H Glucose 366 H Lactate 4.8 H* FiO2 21.0 Crit Value Called To Ana smallwood rn icu Crit Value Called By Dinorah Blood Gas Notified Time 151 Potassium Carbon Dioxide Anion Gap BUN Creatinine Est GFR ( Amer) Est GFR (Non-Af Amer) POC Glucose (mg/dL) 249 H 181 H Random Glucose Calcium Magnesium Total Bilirubin AST ALT Alkaline Phosphatase Total Protein Albumin Globulin Albumin/Globulin Ratio Free T4 TSH 3rd Generation Venous Blood Potassium 3.8 Urine Color Urine Appearance Urine pH Ur Specific [place] Urine Protein Urine Glucose (UA) Urine Ketones Urine Blood Urine Nitrate Urine Bilirubin Urine Urobilinogen Ur Leukocyte Esterase Urine RBC Urine WBC Ur Epithelial Cells Urine Bacteria 06/13/18 06/13/18 06/13/18 04:26 04:55 05:31 WBC RBC Hgb Hct MCV MCH MCHC RDW Plt Count MPV Neut % (Auto) Lymph % (Auto) [place] % (Auto) Eos % (Auto) Baso % (Auto) Lymph # (Auto) [place] # (Auto) Eos # (Auto) Baso # (Auto) Absolute Neuts (auto) Neutrophils % (Manual) Band Neutrophils % Lymphocytes % (Manual) Monocytes % (Manual) Platelet Evaluation pO2 VBG pH VBG pCO2 VBG HCO3 VBG Total CO2 VBG O2 Sat (Calc) VBG Base Excess VBG Potassium Sodium Chloride Glucose Lactate FiO2 Crit Value Called To Crit Value Called By Blood Gas Notified Time Potassium Carbon Dioxide Anion Gap BUN Creatinine Est GFR ( Amer) Est GFR (Non-Af Amer) POC Glucose (mg/dL) 145 H 152 H Random Glucose Calcium Magnesium Total Bilirubin AST ALT Alkaline Phosphatase Total Protein Albumin Globulin Albumin/Globulin Ratio Free T4 TSH 3rd Generation Venous Blood Potassium Urine Color Yellow Urine Appearance Clear Urine pH 6.0 Ur Specific [place] 1.020 Urine Protein Trace H Urine Glucose (UA) >=1000 Urine Ketones Trace H Urine Blood Trace-lysed H Urine Nitrate Negative Urine Bilirubin Negative Urine Urobilinogen 0.2 Ur Leukocyte Esterase Negative Urine RBC 0 - 2 Urine WBC 0 - 2 Ur Epithelial Cells 1 - 3 Urine Bacteria Trace 06/13/18 06/13/18 06/13/18 05:40 05:40 05:40 WBC 10.0 D RBC 4.00 Hgb 10.5 L D Hct 33.5 L MCV 83.8 MCH 26.3 MCHC 31.3 RDW 13.8 Plt Count 273 MPV 10.2 Neut % (Auto) 82.9 H Lymph % (Auto) 11.1 L Boundary % (Auto) 5.7 Eos % (Auto) 0.2 L Baso % (Auto) 0.1 Lymph # (Auto) 1.1 L Bound[place] # (Auto) 0.6 Eos # (Auto) 0.0 Baso # (Auto) 0.01 Absolute Neuts (auto) 8.25 H Neutrophils % (Manual) Band Neutrophils % Lymphocytes % (Manual) Monocytes % (Manual) Platelet Evaluation pO2 VBG pH VBG pCO2 VBG HCO3 VBG Total CO2 VBG O2 Sat (Calc) VBG Base Excess VBG Potassium Sodium 142 Chloride 115 H Glucose Lactate FiO2 Crit Value Called To Crit Value Called By Blood Gas Notified Time Potassium 3.9 Carbon Dioxide 21 Anion Gap 10 BUN 19 Creatinine 1.4 H Est GFR ( Amer) 45 Est GFR (Non-Af Amer) 37 POC Glucose (mg/dL) Random Glucose 157 H Calcium 8.2 L Magnesium Total Bilirubin AST ALT Alkaline Phosphatase Total Protein Albumin Globulin Albumin/Globulin Ratio Free T4 1.46 TSH 3rd Generation 0.43 L Venous Blood Potassium Urine Color Urine Appearance Urine pH Ur Specific [place] Urine Protein Urine Glucose (UA) Urine Ketones Urine Blood Urine Nitrate Urine Bilirubin Urine Urobilinogen Ur Leukocyte Esterase Urine RBC Urine WBC Ur Epithelial Cells Urine Bacteria 06/13/18 06/13/18 06/13/18 06:27 09:40 09:47 WBC RBC Hgb Hct MCV MCH MCHC RDW Plt Count MPV Neut % (Auto) Lymph % (Auto) Boundary % (Auto) Eos % (Auto) Baso % (Auto) Lymph # (Auto) Boundary # (Auto) Eos # (Auto) Baso # (Auto) Absolute Neuts (auto) Neutrophils % (Manual) Band Neutrophils % Lymphocytes % (Manual) Monocytes % (Manual) Platelet Evaluation pO2 VBG pH VBG pCO2 VBG HCO3 VBG Total CO2 VBG O2 Sat (Calc) VBG Base Excess VBG Potassium Sodium 140 Chloride 114 H Glucose Lactate FiO2 Crit Value Called To Crit Value Called By Blood Gas Notified Time Potassium 4.0 Carbon Dioxide 21 Anion Gap 9 L BUN 18 Creatinine 1.4 H Est GFR ( Amer) 45 Est GFR (Non-Af Amer) 37 POC Glucose (mg/dL) 137 H 255 H Random Glucose 260 H Calcium 8.0 L Magnesium Total Bilirubin AST ALT Alkaline Phosphatase Total Protein Albumin Globulin Albumin/Globulin Ratio Free T4 TSH 3rd Generation Venous Blood Potassium Urine Color Urine Appearance Urine pH Ur Specific [place] Urine Protein Urine Glucose (UA) Urine Ketones Urine Blood Urine Nitrate Urine Bilirubin Urine Urobilinogen Ur Leukocyte Esterase Urine RBC Urine WBC Ur Epithelial Cells Urine Bacteria 06/13/18 06/13/18 11:45 11:55 WBC RBC Hgb Hct MCV MCH MCHC RDW Plt Count MPV Neut % (Auto) Lymph % (Auto) Boundary % (Auto) Eos % (Auto) Baso % (Auto) Lymph # (Auto) Boundary # (Auto) Eos # (Auto) Baso # (Auto) Absolute Neuts (auto) Neutrophils % (Manual) Band Neutrophils % Lymphocytes % (Manual) Monocytes % (Manual) Platelet Evaluation pO2 VBG pH VBG pCO2 VBG HCO3 VBG Total CO2 VBG O2 Sat (Calc) VBG Base Excess VBG Potassium Sodium 139 Chloride 113 H Glucose Lactate FiO2 Crit Value Called To Crit Value Called By Blood Gas Notified Time Potassium 4.1 Carbon Dioxide 21 Anion Gap 10 BUN 18 Creatinine 1.4 H Est GFR ( Amer) 45 Est GFR (Non-Af Amer) 37 POC Glucose (mg/dL) 309 H Random Glucose 292 H Calcium 8.0 L Magnesium Total Bilirubin AST ALT Alkaline Phosphatase Total Protein Albumin Globulin Albumin/Globulin Ratio Free T4 TSH 3rd Generation Venous Blood Potassium Urine Color Urine Appearance Urine pH Ur Specific [place] Urine Protein Urine Glucose (UA) Urine Ketones Urine Blood Urine Nitrate Urine Bilirubin Urine Urobilinogen Ur Leukocyte Esterase Urine RBC Urine WBC Ur Epithelial Cells Urine Bacteria Radiology Impressions: Radiology Impressions Chest X-Ray 06/12/18 22:43 IMPRESSION: No active disease. 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 Initially placed on Insulin drip, now off insulin drip, AG never was open. Given Levemir 15u SQ x 1 FS have been under control, on IVF On Zosyn and Flagyl for intra-abdominal coverage Nausea, vomiting, diarrhea HSS hx of CVA HTN Uncontrolled DMII Recommend: - supp o2 as needed, duonebs PRN - Abx, Flagyl, Zosyn, Check Cdiff, Procal, cultures - IVF - Diabetic diet - Levemir 15u QHS, Sliding scale - Check HgbA1C, TSH, Lipid Panel - repeat VBG with lactate - ASA, Statin - GI ppx - DVT ppx, HSQ - Stable, transfer to med surg
[2018-06-13] MEDS: Insulin Detemir 100 units/ml Vial (Levemir) SC SCH ×2 (09:49→22:03)
--- NOTE | 2018-06-13 09:49 | RAD ---
Date of service: 06/12/2018 HISTORY: pneumonia COMPARISON: 07/22/2016 FINDINGS: LUNGS: No active pulmonary disease. PLEURA: No significant pleural effusion identified, no pneumothorax apparent. CARDIOVASCULAR: No aortic atherosclerotic calcification present. Normal cardiac size. No pulmonary vascular congestion. OSSEOUS STRUCTURES: No significant abnormalities. VISUALIZED UPPER ABDOMEN: Normal. OTHER FINDINGS: None. IMPRESSION: No active disease.
[2018-06-13] MEDS ORDERED: Insulin Detemir 100 units/ml Vial (Levemir) SC ONE (10:20)
[2018-06-13] MEDS: Insulin Lispro (HUMAlog) HIGH Coverage SC SCH ×3 (12:52→21:49)
[2018-06-13 13:49] LABS: VENOUS BLOOD GAS BASE EXCESS -6.3 mmol/L (0.0-2.0); VENOUS BLOOD GAS PO2 28 mm/Hg (30-55)
--- NOTE | 2018-06-13 16:23 | RAD ---
Date of service: 06/13/2018 PROCEDURE: Pelvis and both hips HISTORY: fall/pain COMPARISON: TECHNIQUE: Three views FINDINGS: There is no evidence of fracture. Severe degenerative changes are seen in both hips with joint space narrowing and osteophyte formation. There is fusion of the left sacroiliac joint. IMPRESSION: There is no evidence of fracture. Severe degenerative changes are seen in both hips with joint space narrowing and osteophyte formation. There is fusion of the left sacroiliac joint.
--- NOTE | 2018-06-13 16:27 | PN ---
DATE: 06/13/2018 SUBJECTIVE: The patient is a 72-year-old, was brought to emergency room by family because of increasing weakness. She was having perfused diarrhea. The patient admit drinking lot of soda yesterday and her blood sugar was 127 and 125, so she admitted in ICU since her blood sugar was uncontrolled and she was acidotic, her sugar was closely monitored, doing a lot better, awake and alert, able to communicate. PHYSICAL EXAMINATION: VITAL SIGNS: She is afebrile, pulse 93, respirations 17, and blood pressure 135/64. LUNGS: Bilateral fair airflow. No rhonchi or crackle. HEART: S1 and S2 audible. ABDOMEN: Soft and nontender. No rebound. No guarding. NEUROLOGIC: She is awake, alert, oriented, and able to communicate. LABORATORY DATA: WBC 10, hemoglobin 10.5, hematocrit 33.5, and platelet 273. Chemistry; sodium 139, potassium 4.1, chloride 113, CO2 of 21, BUN 18, creatinine 1.4, blood sugar of 309. CT scan of the head unremarkable. X-ray chest unremarkable. The patient states she had a fall a week ago since then she is having difficulty of falling. ASSESSMENT AND PLAN: 1. Status post uncontrolled diabetes. 2. Metabolic acidosis. 3. Deconditioning, difficulty walking. 4. Status post fall, rule out fracture. 5. Diarrhea, rule out Clostridium difficile. PLAN: We will continue the patient on aspirin. She is on IV fluid, we will continue that. She is on metronidazole. We will monitor her blood sugar. I will order for x-ray of the both hip and the pelvis. We will followup her electrolyte. We will followup the patient in a.m. Maritza Adams MD
--- NOTE | 2018-06-13 22:55 | CARD ---
APPROVED REPORT Date of service: 06/13/2018 EKG Measurement Heart [id number] <Conclusion> Normal sinus rhythm Left axis deviation Right bundle branch block Lateral infarct, age undetermined Inferior infarct, age undetermined NDSTT abnormalities Abnormal ECG
[2018-06-14] MEDS: Dextrose 5%/0.45% NS 1,000 ML IV SCH ×2 (04:52→21:40)
[2018-06-14] MEDS: metroNIDAZOLE IV 500 mg/100 ml 500 MG/100 ML BAG IVPB SCH ×4 (05:30→22:41)
[2018-06-14] MEDS: Insulin Lispro (HUMAlog) HIGH Coverage SC SCH ×4 (07:34→21:36)
[2018-06-14] MEDS: Pantoprazole 40 mg EC Tab PO SCH (11:26)
--- NOTE | 2018-06-14 14:39 | PN ---
DATE: 06/14/2018 SUBJECTIVE: The patient is 72-year-old, seen and examined. Looks much more alert. Eating and tolerating. No nausea. No vomiting. No diarrhea. PHYSICAL EXAMINATION: VITAL SIGNS: She is afebrile. Pulse 72, respiration 20 and blood pressure 112/60. LUNGS: Bilateral fair airflow. No rhonchi or crackle. HEART: S1 and S2, audible. ABDOMEN: Soft and nontender. No rebound. No guarding. NEUROLOGICAL: The patient is awake, alert, oriented and able to communicate. LABORATORY DATA: Blood sugar is 193. Urine positive for Gram-negative rods. X-ray of the hip and pelvis show osteoarthritis. ASSESSMENT: 1. Status post nonketotic hyperosmolar. 2. Uncontrolled hypertension. 3. Uncontrolled diabetes. 4. History of depression. PLAN: We will continue the patient on current medication. Encourage ambulation. disposition plan. Maritza Adams MD
[2018-06-14] MEDS: Insulin Detemir 100 units/ml Vial (Levemir) SC SCH (21:36)
[2018-06-14] MEDS: Sodium Chloride 0.9% 1,000 ML IV SCH (23:47)
[2018-06-15] MEDS: metroNIDAZOLE IV 500 mg/100 ml 500 MG/100 ML BAG IVPB SCH ×3 (05:25→22:46)
[2018-06-15] MEDS: Insulin Lispro (HUMAlog) HIGH Coverage SC SCH ×2 (08:40→19:52)
[2018-06-15] MEDS: Pantoprazole 40 mg EC Tab PO SCH (08:40)
[2018-06-15] MEDS: cefTRIAXone 1 gm 1 GM/100 ML BAG IVPB SCH (13:45)
--- NOTE | 2018-06-15 15:05 | PN ---
DATE: 06/15/2018 SUBJECTIVE: The patient is a 72-year-old, seen and examined, complain of diarrhea and did not have abdominal pain. PHYSICAL EXAMINATION VITAL SIGNS: She is afebrile, pulse 82, respirations 18, and blood pressure 146/84. LUNGS: Bilateral fair airflow. No rhonchi or crackle. HEART: S1 and S2 audible. ABDOMEN: Soft and nontender. No rebound. No guarding. NEUROLOGIC: The patient is awake and alert, able to communicate. She has left hemiparesis from previous stroke. EXTREMITIES: Bilateral leg no edema. LABORATORY DATA: She had stool for C. diff that is negative. She has E. coli UTI, sensitive to Rocephin. ASSESSMENT: 1. Status post fall. 2. Escherichia coli urine tract infection. 3. Intermittent diarrhea. 4. Status post nonketotic hyperosmolar hyperglycemia. 5. Poorly controlled diabetes. PLAN: Currently, the patient is on metronidazole. I will add Rocephin to cover for UTI. Will have GI evaluation. Monitor her blood sugar closely. Awaiting for physical therapy evaluation to make disposition plan. We will reevaluate the patient in a.m. Maritza Adams MD
--- NOTE | 2018-06-15 15:37 | CP.PCM.APN ---
Subjective - Date & Time of Evaluation Date of Evaluation: 06/15/18 Time of Evaluation: 01:00 - Subjective Subjective: Pt. seen and examined. REsting comfortabely, with sister at bedside, states vomitted earlier today, denied abdominal pain. Objective - Vital Signs/Intake and Output Vital Signs (last 24 hours): Temp Pulse Resp BP Pulse Ox 97.4 F L 82 18 146/84 97 06/15/18 06:00 06/15/18 11:01 06/15/18 06:00 06/15/18 11:01 06/15/18 06:00 Intake and Output: 06/15/18 06/15/18 06:59 18:59 Intake Total 360 Output Total 200 Balance 160 - Medications Medications: Current Medications Amlodipine Besylate (Norvasc) 5 mg PO DAILY [facility] Last Admin: 06/15/18 11:01 Dose: 5 mg Aspirin (Aspirin Chewable) 81 mg PO DAILY [facility] Last Admin: 06/15/18 11:00 Dose: 81 mg Glimepiride (Amaryl) 2 mg PO ACBD [facility] Last Admin: 06/15/18 08:40 Dose: 2 mg Metronidazole (Flagyl) 500 mg in 100 mls @ 100 mls/hr IVPB Q8 [facility]; Protocol Last Admin: 06/15/18 14:29 Dose: 100 mls/hr Ceftriaxone Sodium (Rocephin 1 Gram Ivpb) 1 gm in 100 mls @ 100 mls/hr IVPB DAILY [facility]; Protocol Last Admin: 06/15/18 13:45 Dose: 100 mls/hr Insulin Detemir (Levemir) 10 unit SC [facility] Last Admin: 06/14/18 21:36 Dose: Not Given Insulin Human Lispro (Humalog High) 0 units SC [facility]; Protocol Last Admin: 06/15/18 08:40 Dose: Not Given Metformin HCl (Glucophage) 500 mg PO BID [facility] Last Admin: 06/15/18 11:01 Dose: 500 mg Metoprolol Tartrate (Lopressor) 25 mg PO HS [facility] Last Admin: 06/14/18 21:34 Dose: 25 mg Ondansetron HCl (Zofran Inj) 4 mg IVP Q6H PRN PRN Reason: Nausea/Vomiting Last Admin: 06/15/18 14:44 Dose: 4 mg Pantoprazole Sodium (Protonix Ec Tab) 40 mg PO ACB [facility] Last Admin: 06/15/18 08:40 Dose: 40 mg Paroxetine HCl (Paxil) 10 mg PO DAILY [facility] Last Admin: 06/15/18 11:00 Dose: 10 mg - Labs Labs: 06/13/18 05:40 06/13/18 11:45 - Constitutional Appears: Well - Head Exam Head Exam: NORMOCEPHALIC - Eye Exam Eye Exam: Normal appearance - ENT Exam ENT Exam: absent: Mucous Membranes Dry, Mucous Membranes Moist, Normal Exam, Normal External Ear Exam, Normal Oropharynx, TM's Normal Bilaterally - Neck Exam Neck Exam: Full ROM - Respiratory Exam Respiratory Exam: absent: Accessory Muscle Use, Chest Wall Tenderness, Decreased Breath Sounds, Clear to Ausculation Bilateral, Prolonged Expiratory Phase, Rales, Rhonchi, Wheezes, Respiratory Distress, Stridor, NORMAL BREATHING PATTERN - Cardiovascular Exam Cardiovascular Exam: REGULAR RHYTHM, +S1, +S2 - GI/Abdominal Exam GI & Abdominal Exam: Soft - Rectal Exam Rectal Exam: Deferred - Exam Exam: absent: Circumcision, NORMAL INSPECTION, Scrotal Swelling, Testicular Tenderness, Uretheral Discharge, Testicular Vertical Lie, Bladder Distension Speculum exam: absent: Cervical Discharge, Erythema, Foreign Body, Laceration, NORMAL SPECULUM EXAM, Tissue, Vaginal Bleeding, Vaginal Discharge Bimanual exam: absent: Adenexal Mass, Adnexal, Cervical Motion Tendernes, NORMAL BIMANUAL EXAM, Uterine Enlargement, Uterine Tenderness - Extremities Exam Additional comments: left sided weakness noted - Back Exam Back Exam: NORMAL INSPECTION - Psychiatric Exam Psychiatric exam: Normal Affect, Normal Mood - Skin Skin Exam: Dry, Intact, Normal Color, Warm Assessment and Plan - Assessment and Plan (Free Text) Assessment: ITS Impressions Chest X-Ray 06/12/18 22:43 IMPRESSION: No active disease. Head CT 06/12/18 22:51 IMPRESSION: No acute intracranial abnormalities Hip/Pelvis X-Ray 06/13/18 12:42 IMPRESSION: There is no evidence of fracture. Severe degenerative changes are seen in both hips with joint space narrowing and osteophyte formation. There is fusion of the left sacroiliac joint. 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 Initially placed on Insulin drip, now off insulin drip. admitted with hyperglycemia for further eval and treatment. Plan: 1. Hyperglycemia blood glucose controlled on current insulin monitor blood glucose 2. UTI- pos. E. Coli cont. rocephin 3. Diarrhea, has improved stool cdiff pending, cont. Flagyl 4. Vomiting GI consulted cont anti nausea med Will continue to monitor clinical status and follow closely.
[2018-06-15 15:55] LABS: HEMOGLOBIN 10.5 g/dL (12.0-16.0); MEAN CELL VOLUME 85.4 fl (80.0-105.0); MEAN CORPUSCULAR HEMOGLOBIN 26.5 pg (25.0-35.0); MEAN CORPUSCULAR HGB CONC 31.1 g/dl (31.0-37.0); MEAN PLATELET VOLUME 10.1 fl (7.0-11.0); RBC 3.96 10^6/uL (3.5-6.1); RED CELL DISTRIBUTION WIDTH 14.2 % (11.5-14.5); WHITE BLOOD COUNT 6.9 10^3/uL (4.5-11.0)
[2018-06-15 16:09] LABS: ALB/GLOB RATIO 1.2 (1.1-1.8); ALBUMIN 3.3 g/dL (3.0-4.8); CALCIUM 8.8 mg/dL (8.4-10.5)
[2018-06-15 21:55] VITALS: RESP 18; O2SAT 97
[2018-06-15] MEDS: Insulin Detemir 100 units/ml Vial (Levemir) SC SCH (22:45)
[2018-06-16] MEDS: Insulin Lispro (HUMAlog) HIGH Coverage SC SCH ×3 (01:41→12:08)
[2018-06-16] MEDS: metroNIDAZOLE IV 500 mg/100 ml 500 MG/100 ML BAG IVPB SCH ×2 (05:13→13:00)
[2018-06-16] MEDS: Pantoprazole 40 mg EC Tab PO SCH (06:38)
[2018-06-16 08:30] VITALS: BP 120/66; PULSE 67; TEMP 97.4
[2018-06-16] MEDS: cefTRIAXone 1 gm 1 GM/100 ML BAG IVPB SCH (10:03)
--- NOTE | 2018-06-16 10:49 | CP.PCM.CON ---
<Brady Hickman - Last Filed: 06/16/18 11:04> History of Present Illness - History of Present Illness History of Present Illness: GI: Dr. Sanchez CC: Diarrhea HPI: 72F w. 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 N/V/D and was found to have HHNK and was subsequently admitted to ICU. GI was consulted for diarrhea, w. concern for C. Diff. When pt was seen this morning, she was resting comfortably in bed. She denied any complaints. She was tolerating diet. No N/V. Per nursing, last BM was over 3 days ago. PMH: See above PSH: skin biopsy, cholecystectomy Meds: MAR reviewed NKDA SHx: former smoker, no ETOH/drugs FHx: noncontributory Review of Systems - Review of Systems All systems: reviewed and no additional remarkable complaints except (HPI) Past Patient History - Past Social History Smoking Status: Never Smoked - CARDIAC Hx Hypertension: Yes - PULMONARY Hx Respiratory Disorders: No - NEUROLOGICAL HX Cerebrovascular Accident: Yes (10/2015; L hemiparesis) Other/Comment: motion sickness - HEENT Hx HEENT Problems: No - RENAL Hx Chronic Kidney Disease: No - ENDOCRINE/METABOLIC Hx Diabetes Mellitus Type 2: Yes - HEMATOLOGICAL/ONCOLOGICAL Hx Blood Disorders: No - INTEGUMENTARY Hx Dermatological Problems: Yes Hx Basil Cell: Yes (lle) Other/Comment: old bruises b/l knees, lle dry skin/ ble skin discolored,reddened buttocks, inner r ankle/foot area flat red rash pt has had it for 20 yrs, round red area 2cm round to mid back, lle red area of skin 1cm round, hx basal cell skin ca removed by dr arceo 1 yr ago and biopsy, tatoo left chest - MUSCULOSKELETAL/RHEUMATOLOGICAL Hx Falls: Yes - GASTROINTESTINAL Hx Gastrointestinal Disorders: No - GENITOURINARY/GYNECOLOGICAL Hx Genitourinary Disorders: (uses commode with assist) Hx Incontinence: Yes (at night) - PSYCHIATRIC Hx Psychophysiologic Disorder: No Hx Anxiety: No Hx Substance Use: No - SURGICAL HISTORY Hx Cholecystectomy: Yes Other/Comment: carotid Meds Allergies/Adverse Reactions: Allergies Allergy/AdvReac Type Severity Reaction Status Date / Time No Known Allergies Allergy Verified 06/12/18 20:44 - Medications Medications: Current Medications Amlodipine Besylate (Norvasc) 5 mg PO DAILY [facility] Last Admin: 06/16/18 10:01 Dose: 5 mg Aspirin (Aspirin Chewable) 81 mg PO DAILY [facility] Last Admin: 06/16/18 10:01 Dose: 81 mg Glimepiride (Amaryl) 2 mg PO ACBD [facility] Last Admin: 06/16/18 08:29 Dose: 2 mg Metronidazole (Flagyl) 500 mg in 100 mls @ 100 mls/hr IVPB Q8 [facility]; Protocol Last Admin: 06/16/18 05:13 Dose: 100 mls/hr Ceftriaxone Sodium (Rocephin 1 Gram Ivpb) 1 gm in 100 mls @ 100 mls/hr IVPB DAILY [facility]; Protocol Last Admin: 06/16/18 10:03 Dose: 100 mls/hr Insulin Detemir (Levemir) 10 unit SC [facility] Last Admin: 06/15/18 22:45 Dose: 10 units Insulin Human Lispro (Humalog High) 0 units SC [facility]; Protocol Last Admin: 06/16/18 08:29 Dose: Not Given Metformin HCl (Glucophage) 500 mg PO BID [facility] Last Admin: 06/16/18 10:01 Dose: 500 mg Metoprolol Tartrate (Lopressor) 25 mg PO [facility] Last Admin: 06/15/18 22:45 Dose: 25 mg Ondansetron HCl (Zofran Inj) 4 mg IVP Q6H PRN PRN Reason: Nausea/Vomiting Last Admin: 06/15/18 14:44 Dose: 4 mg Pantoprazole Sodium (Protonix Ec Tab) 40 mg PO ACB [facility] Last Admin: 06/16/18 06:38 Dose: 40 mg Paroxetine HCl (Paxil) 10 mg PO DAILY [facility] Last Admin: 06/16/18 10:01 Dose: 10 mg Physical Exam - Constitutional Appears: Non-toxic, No Acute Distress - Head Exam Head Exam: ATRAUMATIC, NORMOCEPHALIC - Eye Exam Eye Exam: EOMI - ENT Exam ENT Exam: Mucous Membranes Moist - Neck Exam Neck exam: Positive for: Full Rom - Respiratory Exam Respiratory Exam: NORMAL BREATHING PATTERN. absent: Accessory Muscle Use, Respiratory Distress - GI/Abdominal Exam GI & Abdominal Exam: Soft. absent: Distended, Firm, Guarding, Rebound, Rigid, Tenderness - Extremities Exam Extremities exam: Negative for: calf tenderness, pedal edema - Neurological Exam Neurological exam: Alert, Oriented x3 Results - Vital Signs Recent Vital Signs: Last Vital Signs Temp 97.4 F L 06/16/18 06:00 Pulse 67 06/16/18 10:01 Resp 18 06/16/18 06:00 BP 120/66 06/16/18 10:01 Pulse Ox 97 06/16/18 06:00 - Labs Result Diagrams: 06/15/18 15:50 06/15/18 15:50 Labs: Laboratory Results - last 24 hr 06/15/18 06/15/18 06/15/18 11:19 15:50 15:50 WBC 6.9 D RBC 3.96 Hgb 10.5 L Hct 33.8 L MCV 85.4 MCH 26.5 MCHC 31.1 RDW 14.2 Plt Count 247 MPV 10.1 Sodium 139 Potassium 3.9 Chloride 108 H Carbon Dioxide 23 Anion Gap 12 BUN 13 Creatinine 1.4 H Est GFR ( Amer) 45 Est GFR (Non-Af Amer) 37 POC Glucose (mg/dL) 146 H Random Glucose 173 H Calcium 8.8 Total Bilirubin 0.2 AST 19 ALT 7 Alkaline Phosphatase 96 Total Protein 6.1 Albumin 3.3 Globulin 2.8 Albumin/Globulin Ratio 1.2 06/15/18 06/15/18 06/16/18 15:54 21:17 06:53 WBC RBC Hgb Hct MCV MCH MCHC RDW Plt Count MPV Sodium Potassium Chloride Carbon Dioxide Anion Gap BUN Creatinine Est GFR ( Amer) Est GFR (Non-Af Amer) POC Glucose (mg/dL) 162 H 99 72 Random Glucose Calcium Total Bilirubin AST ALT Alkaline Phosphatase Total Protein Albumin Globulin Albumin/Globulin Ratio Assessment & Plan - Assessment and Plan (Free Text) Assessment: 72F admitted for HHNK, and N/V/D, currently resolved -unlikely C. Diff -Obtain stool sample when pt has BM -will start stool softeners -will follow -d/w attending Vick PGY4 <[place] Sanchez V - Last Filed: 06/16/18 23:54> Results - Vital Signs Recent Vital Signs: Last Vital Signs Temp 97.4 F L 06/16/18 06:00 Pulse 67 06/16/18 10:01 Resp 18 06/16/18 06:00 BP 120/66 06/16/18 10:01 Pulse Ox 97 06/16/18 06:00 - Labs Result Diagrams: 06/15/18 15:50 06/15/18 15:50 Labs: Laboratory Results - last 24 hr 06/16/18 06/16/18 06/16/18 06:53 10:55 16:20 POC Glucose (mg/dL) 72 116 H 110 Attending/Attestation - Attestation I have personally seen and examined this patient.: Yes I have fully participated in the care of the patient.: Yes I have reviewed all pertinent clinical information: Yes Notes (Text): This is an addendum to GI progress report dictated by the GI Fellow. The patient was seen and examined earlier. Medical records, lab studies, imagings were reviewed. Last 24 hours events reviewed. Agreed with the above treatment plan as outlined in GI Fellow 's notes with the addition of the following 06/16/18 23:54
[2018-06-16] MEDS ORDERED: Docusate-Senna 50 mg-8.6 mg Tab PO SCH (11:15)
--- NOTE | 2018-06-16 22:01 | DS ---
HISTORY OF PRESENT ILLNESS: The patient is 72 years old, seen and examined, lying in bed, eating and tolerating. No reported diarrhea in the last 24 hours. PHYSICAL EXAMINATION: VITAL SIGNS: She is afebrile, pulse 65, respirations 18, and blood pressure 120/66. LUNGS: Bilateral fair airflow. No rhonchi or crackles. HEART: S1 and S2 audible. ABDOMEN: Soft, nontender. No rebound. No guarding. NEUROLOGICAL: She is awake and alert, able to communicate. She has left upper extremity paralysis, and she has hemiparesis of the left lower extremity. LABORATORY DATA: Blood sugar is 116. ASSESSMENT: 1. Status post diarrhea that seems to be resolving. Stool for Clostridium difficile is negative. 2. Status post diabetic ketoacidosis. 3. History of cerebrovascular accident with left hemiparesis. 4. Hypertension. PLAN: Currently, the patient is on glimepiride 2 mg twice a day, aspirin 81 daily. She is on metronidazole and metformin. She is on metoprolol and amlodipine. She is on Rocephin; she has E. coli UTI, being covered with Rocephin. Awaiting stool for C. difficile. The patient is accepted in TCU and will be transferred, and rest of the care will be done in TCU along with CT. Maritza Adams MD
== END 2018-06-16 14:27 | DRG 638 ==
LOC: ED 20:28 → ERH 22:52 → ICU 06-13 00:55 → 5RNO 06-13 16:05
PROVIDERS: ADMIT Internal Medicine; ATTEND Internal Medicine
DX: E11.10 Type 2 diabetes mellitus with ketoacidosis without coma (principal); I69.354 Hemiplegia and hemiparesis following cerebral infarction affecting left non-dominant side; E87.2 Acidosis; N39.0 Urinary tract infection, site not specified; B96.20 Unspecified Escherichia coli [E. coli] as the cause of diseases classified elsewhere; E11.65 Type 2 diabetes mellitus with hyperglycemia; R19.7 Diarrhea, unspecified; I10 Essential (primary) hypertension; E78.5 Hyperlipidemia, unspecified; R26.2 Difficulty in walking, not elsewhere classified; Z87.11 Personal history of peptic ulcer disease; Z85.828 Personal history of other malignant neoplasm of skin; Z91.81 History of falling; Z87.891 Personal history of nicotine dependence

== ENCOUNTER 2018-06-16 14:31 | Inpatient (IN) | payer OTHER ==
[2018-06-16] MEDS: Insulin Lispro (HUMAlog) HIGH Coverage SC SCH ×2 (17:57→21:38)
[2018-06-16] MEDS: Insulin Detemir 100 units/ml Vial (Levemir) SC SCH (21:38)
[2018-06-17] MEDS: cefTRIAXone 1 gm 1 GM/100 ML BAG IVPB SCH (05:23)
[2018-06-17] MEDS: Insulin Lispro (HUMAlog) HIGH Coverage SC SCH ×4 (06:44→21:24)
[2018-06-17] MEDS: Pantoprazole 40 mg EC Tab PO SCH (06:44)
[2018-06-17] MEDS: Docusate-Senna 50 mg-8.6 mg Tab PO SCH (09:30)
[2018-06-17] MEDS ORDERED: cefTRIAXone 1 gm 1 GM/100 ML BAG IVPB SCH (10:00)
--- NOTE | 2018-06-17 21:12 | HP ---
DATE OF EXAM: HISTORY OF PRESENT ILLNESS: The patient is 72-year-old, who lives with her sister, who states that she was having diarrhea and increasing difficulty walking. She was brought to emergency room. She was found to have blood sugar of 750. The patient does admit to drinking lot of soda recently. She was given IV fluids. Blood sugar was monitored. She was also found to have E. Coli UTI. She was transferred to TCU for therapy and completion of antibiotics. PAST MEDICAL HISTORY: Significant for: 1. Hypertension. 2. Imi-[id number]-[id number] diabetes. 3. Status post CVA with left hemiparesis, upper extremities more than the lower. PHYSICAL EXAMINATION: GENERAL: On examination, she is awake, alert, and oriented, able to communicate. VITAL SIGNS: The patient is afebrile, pulse 76, respiratory rate 19, and blood pressure 125/91. LUNGS: Bilateral fair airflow. No rhonchi or crackles. HEART: S1 and S2, audible. ABDOMEN: Soft and nontender. No rebound, no guarding. NEUROLOGIC: The patient is awake and alert and able to communicate, has left hemiparesis. LABORATORY DATA: Blood sugar 160. ASSESSMENT: 1. Status post intractable diarrhea, seems to be improving. 2. Uncontrolled diabetes. 3. History of hypertension. 4. History of cerebrovascular accident. 5. Status post fall. PLAN: Currently, the patient is on Rocephin. We will monitor her blood sugar. Continue her on metformin. She is on metoprolol, amlodipine, Paxil, Protonix, aspirin 81 mg daily, and glimepiride. We will continue that. Monitor blood sugar. Continue physical therapy. Maritza Adams MD
[2018-06-17] MEDS: Insulin Detemir 100 units/ml Vial (Levemir) SC SCH (21:25)
[2018-06-18] MEDS: cefTRIAXone 1 gm 1 GM/100 ML BAG IVPB SCH (05:25)
[2018-06-18] MEDS: Pantoprazole 40 mg EC Tab PO SCH (06:37)
[2018-06-18] MEDS: Insulin Lispro (HUMAlog) HIGH Coverage SC SCH ×4 (06:39→21:46)
[2018-06-18] MEDS: Docusate-Senna 50 mg-8.6 mg Tab PO SCH (09:11)
--- NOTE | 2018-06-18 21:15 | PN ---
DATE: 06/18/2018 SUBJECTIVE: The patient has no complaints of any chest pain, shortness of breath or headache. PHYSICAL EXAMINATION: VITAL SIGNS: Temperature 97.4, pulse 75, blood pressure 125/78, and respirations 19. GENERAL: The patient is lying in bed, flat, comfortable. HEENT: No oral lesion. Anicteric sclerae. Moist mucosa. NECK: No JVD, adenopathy, or thyromegaly. CARDIOVASCULAR: S1 and S2, regular. No murmurs, rubs, or gallops. LUNGS: Clear to auscultation bilaterally. No wheeze, rales, or rhonchi. ABDOMEN: Bowel sounds are positive, soft, nontender and nondistended. EXTREMITIES: No cyanosis, clubbing or edema. LABORATORY DATA: No labs have been done. ASSESSMENT: 1. Hypertension. 2. Diabetes type 2. 3. Fall. 4. Diarrhea, improved. 5. Urinary tract infection, secondary to Escherichia coli. PLAN: The patient is currently on Amaryl for her diabetes. She is going to continue with aspirin daily. She is on metformin for her diabetes as well. She is using Levemir in the evening. She is on Norvasc for her hypertension. She is receiving Paxil for her depression. She is on antibiotics with Rocephin. She had urinary tract infection secondary to E. coli. She is receiving Zofran as needed. She is on Colace for her constipation. I will repeat her labs in the morning. Truong Santillan MD
[2018-06-18] MEDS: Insulin Detemir 100 units/ml Vial (Levemir) SC SCH (21:47)
[2018-06-19] MEDS: cefTRIAXone 1 gm 1 GM/100 ML BAG IVPB SCH (05:19)
[2018-06-19] MEDS: Pantoprazole 40 mg EC Tab PO SCH (06:48)
[2018-06-19] MEDS: Insulin Lispro (HUMAlog) HIGH Coverage SC SCH ×4 (06:49→21:56)
[2018-06-19 08:01] LABS: HEMOGLOBIN 11.8 g/dL (12.0-16.0); MEAN CELL VOLUME 84.2 fl (80.0-105.0); MEAN CORPUSCULAR HGB CONC 32.1 g/dl (31.0-37.0); MEAN PLATELET VOLUME 10.1 fl (7.0-11.0); RBC 4.37 10^6/uL (3.5-6.1); RED CELL DISTRIBUTION WIDTH 14.2 % (11.5-14.5); WHITE BLOOD COUNT 5.6 10^3/uL (4.5-11.0)
[2018-06-19 09:42] LABS: ALB/GLOB RATIO 1.4 (1.1-1.8); ALBUMIN 4.1 g/dL (3.0-4.8); CALCIUM 9.6 mg/dL (8.4-10.5)
[2018-06-19] MEDS: Docusate-Senna 50 mg-8.6 mg Tab PO SCH (10:11)
[2018-06-19] MEDS ORDERED: POLYETHYLENE GLYCOL 3350 17 GM/Dose PACKET PO ONE (12:00)
[2018-06-19 16:48] VITALS: RESP 18
[2018-06-19] MEDS: POLYETHYLENE GLYCOL 3350 17 GM/Dose PACKET PO SCH (18:00)
[2018-06-19] MEDS: Insulin Detemir 100 units/ml Vial (Levemir) SC SCH (21:56)
[2018-06-20] MEDS: Cefpodoxime (Vantin) 200 mg Tab PO SCH ×2 (06:24→17:48)
[2018-06-20] MEDS: Insulin Lispro (HUMAlog) HIGH Coverage SC SCH ×4 (06:30→21:56)
[2018-06-20] MEDS: Pantoprazole 40 mg EC Tab PO SCH (06:30)
--- NOTE | 2018-06-20 08:52 | PN ---
DATE: 06/19/2018 SUBJECTIVE: Patient is 72 years old, seen and examined, lying in bed, seems to be comfortable. Denies any chest pain or shortness of breath. No nausea. No vomiting. No diarrhea. Rather she is constipated for 3 days. PHYSICAL EXAMINATION: VITAL SIGNS: She is afebrile, pulse 79, respirations 18, and blood pressure 116/79. HEAD AND NECK: Normocephalic and atraumatic. Sclerae are nonicteric. Pale conjunctivae. LUNGS: Bilateral airflow. No rhonchi or crackles. HEART: S1 and S2 audible. ABDOMEN: Soft and nontender. No rebound. No guarding. NEUROLOGIC: She is awake, alert, oriented, and communicative. EXTREMITIES: Left upper extremity weakness because of previous stroke. LABORATORY DATA: WBC 5.6, hemoglobin 11.8, hematocrit 36.8, and platelets 284. Chemistry; sodium 142, potassium 4.6, chloride 109, CO2 of 18, BUN 17, creatinine 1.2, and blood sugar of 92. Urinalysis shows E. coli. ASSESSMENT: 1. Status post intractable diarrhea. Now, she is constipated. 2. Escherichia coli urinary tract infection. 3. Status post nonketotic hyperosmolar hyperglycemia. PLAN: We will give the patient MiraLax. Continue all other medications. Continue physical therapy. Followup the patient in a.m. Maritza Adams MD
[2018-06-20] MEDS: POLYETHYLENE GLYCOL 3350 17 GM/Dose PACKET PO SCH ×2 (10:12→18:24)
--- NOTE | 2018-06-20 17:47 | PN ---
DATE: 06/20/2018 SUBJECTIVE: The patient is 72 years old, seen and examined, doing very well. Eating and tolerating. No nausea. No vomiting. No diarrhea. No chest pain. No shortness of breath. PHYSICAL EXAMINATION: VITAL SIGNS: She is afebrile, pulse 96, respirations 18, and blood pressure 140/80. LUNGS: Bilateral fair airflow. No rhonchi or crackles. HEART: S1, S2 audible. ABDOMEN: Soft, nontender. No rebound. No guarding. NEUROLOGIC: The patient is awake, alert, oriented, able to communicate. EXTREMITIES: She has left upper extremity weakness because of prior stroke. ASSESSMENT: 1. Status post uncontrolled diabetes. 2. Hyperlipidemia. 3. Hypertension. 4. History of cerebrovascular accident. 5. Deconditioning, difficulty walking. PLAN: We will continue the patient on current medications. Monitor blood sugar. Continue physical therapy. We will follow up the patient in the morning. Maritza Adams MD
[2018-06-20] MEDS: Insulin Detemir 100 units/ml Vial (Levemir) SC SCH (21:56)
[2018-06-21] MEDS: Cefpodoxime (Vantin) 200 mg Tab PO SCH ×2 (05:25→17:21)
[2018-06-21] MEDS: Pantoprazole 40 mg EC Tab PO SCH (05:25)
[2018-06-21] MEDS: Insulin Lispro (HUMAlog) HIGH Coverage SC SCH ×4 (06:46→22:16)
[2018-06-21] MEDS: POLYETHYLENE GLYCOL 3350 17 GM/Dose PACKET PO SCH ×2 (10:11→17:21)
--- NOTE | 2018-06-22 00:52 | PN ---
DATE: 06/21/2018 SUBJECTIVE: The patient is a 72-year-old, seen and examined lying in bed, seems to be comfortable. No nausea or vomiting. No diarrhea. PHYSICAL EXAMINATION: VITAL SIGNS: The patient is afebrile, pulse 72, respirations 18, and blood pressure 107/67. LUNGS: Bilateral good airflow. No rhonchi or crackle. HEART: S1 and S2 audible. ABDOMEN: Soft, nontender. No rebound. No guarding. NEUROLOGIC: The patient is awake, alert, able to communicate. LABORATORY DATA: Blood sugar is 125. ASSESSMENT: 1. Status post uncontrolled diabetes. 2. Status post below knee amputation. 3. History of cerebrovascular accident with left hemiparesis. 4. Hypertension. 5. Hyperlipidemia. PLAN: The patient states she cannot afford or cannot give herself insulin, so she wants to maximize her oral hypoglycemic. She can handle that better. We will discontinue her Levemir and increase her glimepiride. Continue on metformin and continue all other medications. We will follow up the patient in a.m. Encouraged physical therapy. She has E. coli UTI and she is on Vantin for that. We will continue to complete 7 to 10 days of antibiotics. Maritza Adams MD
[2018-06-22] MEDS: Pantoprazole 40 mg EC Tab PO SCH (05:22)
[2018-06-22] MEDS: Cefpodoxime (Vantin) 200 mg Tab PO SCH (05:22)
[2018-06-22] MEDS: Insulin Lispro (HUMAlog) HIGH Coverage SC SCH ×4 (07:05→22:11)
[2018-06-22] MEDS: POLYETHYLENE GLYCOL 3350 17 GM/Dose PACKET PO SCH ×2 (09:25→17:23)
--- NOTE | 2018-06-22 16:42 | PN ---
DATE: 06/22/2018 SUBJECTIVE: The patient is 72 years old, seen and examined. Doing well. Eating and tolerating. No nausea or vomiting. No diarrhea. Participating in therapy. Getting stronger. PHYSICAL EXAMINATION: VITAL SIGNS: She is afebrile, pulse 72, respirations 18, blood pressure 130/68. LUNGS: Bilateral fair airflow. No rhonchi or crackle. HEART: S1, S2 audible. ABDOMEN: Soft, nontender. No rebound. No guarding. EXTREMITIES: She has left hemiparesis, more swelling in the left upper arm; however, her left lower leg, she has good strength. No leg edema. NEUROLOGICAL: The patient is awake, alert, oriented, communicative. LABORATORY EXAM: Her blood sugar this morning was 83, afternoon it was 132; however, last night, it dropped to 60. ASSESSMENT: 1. Status post nonketotic hyperosmolar hyperglycemia. 2. Intractable diarrhea secondary to noncompliance of diabetic diet. 3. History of cerebrovascular accident with left hemiparesis, more so for upper extremities. 4. Hypertension. PLAN: I will cutdown her Amaryl to 2 mg before breakfast, before dinner. Continue her on aspirin, continue on metformin, continue on metoprolol and Norvasc. She is being maintained on Protonix. I will discontinue her Protonix today, and we will continue her on paroxetine and monitor blood sugar, possible discharge plan. Maritza Adams MD
[2018-06-23] MEDS: Insulin Lispro (HUMAlog) HIGH Coverage SC SCH ×4 (06:32→21:05)
[2018-06-23] MEDS: POLYETHYLENE GLYCOL 3350 17 GM/Dose PACKET PO SCH ×2 (09:12→17:37)
[2018-06-23 15:47] VITALS: TEMP 97.9; O2SAT 98
--- NOTE | 2018-06-24 01:37 | HP ---
DATE OF EXAM: 06/23/2018 HISTORY OF PRESENT ILLNESS: The patient is a 72-year-old seen and examined, doing well, participating in therapy. No nausea, vomiting, or diarrhea. Eating and tolerating. PHYSICAL EXAMINATION VITAL SIGNS: She is afebrile, pulse 83, respirations 18, blood pressure 98/64. LUNGS: Bilateral fair airflow. No rhonchi or crackle. HEART: S1, S2 audible. ABDOMEN: Soft, nontender. No rebound. No guarding. NEUROLOGIC: He is awake, alert, oriented, able to communicate. ASSESSMENT: 1. Status post uncontrolled diabetes secondary to noncompliance. 2. Hypertension. 3. History of cerebrovascular accident in the past with left hemiparesis, upper extremity more than the lower extremity. 4. Intermittent constipation. PLAN: The patient is clinically stable. Discharge plan for the morning. Maritza Adams MD
[2018-06-24] MEDS: Insulin Lispro (HUMAlog) HIGH Coverage SC SCH (07:34)
[2018-06-24] MEDS: POLYETHYLENE GLYCOL 3350 17 GM/Dose PACKET PO SCH (10:13)
[2018-06-24 10:20] VITALS: BP 120/69; PULSE 69
--- NOTE | 2018-06-25 00:46 | DS ---
HISTORY OF PRESENT ILLNESS: The patient is 72 years old, who came initially with intractable diarrhea and abdominal pain. She was found to have nonketotic hyperosmolar hyperglycemia. The patient was initially admitted in ICU, had IV fluid resuscitation done. Blood sugar was controlled. The patient admits drinking lot of soda and not taking any oral hypoglycemic either. The patient was stabilized and transferred to TCU for rehab, has been doing well. She still need more therapy so she is being transferred to [facility] today. PHYSICAL EXAMINATION: GENERAL: She is awake, alert, oriented and communicative. VITAL SIGNS: She is afebrile, pulse 69, respiration 18 and blood pressure 120/69. LUNGS: Bilateral fair airflow. No rhonchi or crackle. HEART: S1 and S2, audible. ABDOMEN: Soft and nontender. No rebound. No guarding. NEUROLOGIC: She is awake, alert, oriented and able to communicate. EXTREMITIES: She has profound left upper extremity weakness and the left lower extremity weakness has significantly improved. ASSESSMENT: 1. Uncontrolled diabetes. 2. Hypertension. 3. Hyperlipidemia. 4. History of cerebrovascular accident with left hemiparesis and also in the left upper extremity the motor is 1/5 and lower extremity almost 5/5. DISCHARGE PLAN: The patient will continue on current medication including glimepiride 2 mg twice a day, aspirin 81 mg daily, metformin 500 mg twice a day and metoprolol 25 mg daily. She is on amlodipine 5 mg daily, Paxil and MiraLax as needed. Maritza Adams MD
== END 2018-06-24 15:41 | DRG 638 ==
LOC: TRCU 14:31
PROVIDERS: ADMIT Internal Medicine; ATTEND Internal Medicine
PROC: F08Z0ZZ Bathing/Showering Techniques Treatment (ICD-10-PCS; 2018-06-16)
PROC: F08Z1ZZ Dressing Techniques Treatment (ICD-10-PCS; 2018-06-16)
PROC: F08Z3ZZ Feeding/Eating Treatment (ICD-10-PCS; 2018-06-16)
PROC: F08Z2ZZ Grooming/Personal Hygiene Treatment (ICD-10-PCS; 2018-06-16)
PROC: F07Z9FZ Gait Training/Functional Ambulation Treatment using Assistive, Adaptive, Supportive or Protective Equipment (ICD-10-PCS; principal; 2018-06-17)
PROC: F07M6ZZ Therapeutic Exercise Treatment of Musculoskeletal System - Whole Body (ICD-10-PCS; 2018-06-17)
DX: E11.65 Type 2 diabetes mellitus with hyperglycemia (principal); I69.354 Hemiplegia and hemiparesis following cerebral infarction affecting left non-dominant side; N39.0 Urinary tract infection, site not specified; I10 Essential (primary) hypertension; E78.5 Hyperlipidemia, unspecified; K59.00 Constipation, unspecified; B96.20 Unspecified Escherichia coli [E. coli] as the cause of diseases classified elsewhere; Z89.519 Acquired absence of unspecified leg below knee; Z91.19 Patient's noncompliance with other medical treatment and regimen; R19.7 Diarrhea, unspecified